=== PATIENT | male | born 1960 | race Caucasian/White ===

== ENCOUNTER 2019-05-17 13:12 | Inpatient (IN) ==
[2019-05-17] MEDS ORDERED: methylPREDNISolone 125 MG/2 ML VIAL IV STA (13:51)
[2019-05-17] MEDS ORDERED: ALBUT/IPRATROP 3MG/0.5MG NEB 3 ML VIAL INH STA (13:51)
[2019-05-17 14:21] LABS: Basophils # (auto) 0.24 K/uL (0-0.2); Basophils % (auto) 3.4 %; Eosinophils # (auto) 1.52 K/uL (0-0.5); Eosinophils % (auto) 21.3 %; Hematocrit (blood only) 43.9 % (42-52); Hemoglobin 15.4 g/dL (14.0-18.0); Immature Granulocytes # (auto) 0.01 K/uL (0.00-0.02); Immature Granulocytes % (auto) 0.1 %; Lymphocytes # (auto) 2.03 K/uL (1.2-3.4); Lymphocytes % (auto) 28.5 %; Mean Corpuscular Hemoglobin 32.3 pg (25-34); Mean Corpuscular Hgb Conc 35.1 g/dL (32-36); Monocytes # (auto) 0.93 K/uL (0.11-0.59); Monocytes % (auto) 13.1 %; Neutrophils # (auto) 2.39 K/uL (1.4-6.5); Neutrophils % (auto) 33.6 %; Platelet Count 295 K/uL (130-400); RDW Coefficient of Variation 13.6 % (11.5-14.5); Red Blood Count 4.77 M/uL (4.7-6.1); White Blood Count 7.12 K/uL (4.8-10.8)
--- NOTE | 2019-05-17 14:25 | XRay Report ---
XR chest 1V portable CLINICAL HISTORY: 58 years-old Male presenting with Dyspnea. TECHNIQUE: Portable upright AP view of the chest was obtained. COMPARISON: 05/14/2019. FINDINGS: Cardiomediastinal silhouette normal. No focal opacity. No large effusion or pneumothorax. Degenerativ e changes of the thoracic spine. Upper abdomen normal. IMPRESSION: 1. No acute cardiopulmonary disease. Electronically signed by: Dev Skelton M.D. 05/17/2019 2:23 PM
[2019-05-17 14:31] LABS: INR 1.1 (0.9-1.1); Partial Thromboplastin Ratio 0.9; Partial Thromboplastin Time 25.4 Seconds (21.0-31.0); Prothrombin Time 10.8 Seconds (9.0-12.0)
[2019-05-17 14:41] LABS: Alanine Aminotransferase 36 U/L (12-78); Albumin Level 3.8 gm/dl (3.4-5.0); Aspartate Aminotransferase 38 U/L (15-37); Blood Urea Nitrogen 11 mg/dl (7-18); Calcium 8.9 mg/dl (8.5-10.1); Carbon Dioxide 25 mmol/L (21-32); Chloride 107 mmol/L (98-107); Creatinine Clr Calc Pharmacy 99.5 ml/min; Est GFR (African American) 85.9; Est GFR (Non-African American) 74.1; Glucose 71 mg/dl (70-99); Potassium 4.3 mmol/L (3.5-5.1); Sodium 140 mmol/L (136-145)
[2019-05-17 14:49] LABS: Albumin Globulin Ratio 1.2 (0.9-2); Alkaline Phosphatase 55 U/L (45-117); Bilirubin,Total 1.2 mg/dl (0.2-1); Globulin 3.1 gm/dl (2.5-4.0); Total Protein 6.9 gm/dl (6.4-8.2); Troponin I < 0.015 ng/ml (0-0.045)
[2019-05-17] MEDS ORDERED: MAGNESIUM SULFATE / D5W 1 GM/100 ML BAG IV ONE (16:15)
[2019-05-17] MEDS ORDERED: DOXYCYCLINE HYCLATE 100 MG in DEXTROSE 5% 100 ML IV STA (16:37)
[2019-05-17] MEDS ORDERED: ALBUT/IPRATROP 3MG/0.5MG NEB 3 ML VIAL NEB STA (16:37)
--- NOTE | 2019-05-17 17:48 | History & Physical Report ---
Date of Service 58-year-old male with a past medical history of reactive airway disease, eosinophilic reactive airway disease, hypothyroid, hyperlipidemia, and diverticulitis who presents the emergency room with cough and wheezing that he says has been waxing and waning since February. Today he got so acutely short of breath and he had to come to the emergency room. This is his fifth episode of reactive airway disease exacerbation since February and he has been on multiple inhalers and antibiotics, but still relapses. He was given doxycycline, Solu-Medrol, nebulizers in the emergency room, but he does not feel well enough to leave. And he does have an audible wheeze when you talk to him. 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, , Works out, Used to weigh 300 lbs, Former tobacco user May 17, 2019 Assessment & Plan (1) Reactive airway disease: (2) Respiratory distress: (3) Wheezing: (4) Eosinophilia: (5) Hypothyroid: (6) HLD (hyperlipidemia): (7) Persistent cough: Duonebs, IV Steroids, Pulm eval, statin, sythroid, monitor daily labs, Inpatient status, likely here > 2 MNs, IgE and ANCA pending, Continue Doxy for now ROS- +Headache, No Visual Changes, No Nausea, No Vomiting, No Fever, No Chills, No Neck Pain or Stiffness, No Chest Pain, No Palpitations, +SOB,+ MOR[place], + Dry Cough, No Sputum, +Wheezing, No Abdominal Pain, No Diarrhea, No Hematemesis, No Hemoptysis, No Unexpected Weight Loss, No Flank pain, No Melena, No Hematochezia, No Frequency, No Urgency, No Burning, No Hematuria, No Rashes, No Diaphoresis. Appetite is Normal Physical Exam Gen-AAO x 3, NAD, Afebrile, pleasant Head-NCAT, EOMI, PERRLA, Anicteric Sclera, No Posterior Pharyngeal Erythema Neck-Supple, No JVD, No Thyromegaly, No Masses, No LAD, No Bruits Lungs-Tight B/L Wheezing, No Crepitus, No Rales or Rhonchi Chest-No S4, +S1, +S2, No S3, No Murmurs, No Rubs, No Gallops, No Ectopy Abdomen-Soft, Bowel Sounds Present, Non Tender, Non Distended, No Hepatomegaly, No Splenomegaly, No Palpable Masses, No Rebound, No Rigidity, No Guarding Musculoskeletal-Full Range of Motion Bilaterally, No CVAT Extremities-No Cyanosis, No Clubbing, No Edema Nuero-Cranial Nerves II-XII grossly intact, Motor WNL, DTRs WNL, Strength WNL, Non Focal Psych-Normal Mood History of Present Illness Primary Care Provider: Terrance Carlos MD Allergies Allergy/AdvReac Type Severity Reaction Status Date / Time Gadolinium-Containing Allergy Intermediate HIVES Verified 05/14/19 12:20 Contrast Medi Home Medications Home Medications Medication Instructions Recorded Confirmed Type levothyroxine [Synthroid] 125 mcg PO DAILY #34 09/02/14 05/17/19 History atorvastatin 10 mg PO DAILY 05/14/19 05/17/19 History ipratropium-albuterol [Combivent 0 puff INHALATION QID 05/14/19 05/17/19 History Respimat] albuterol sulfate [Ventolin HFA] 0 puffs INH Q6H PRN 05/17/19 05/17/19 History budesonide-formoterol [Symbicort] 0 puffs INH BID 05/17/19 05/17/19 History pantoprazole 0 mg PO DAILY 05/17/19 05/17/19 History Past Med/Surg History Medical History (Updated 05/17/19 @ 17:35 by Enrique Ernandez DO) Hyperlipidemia Hypothyroidism Social History Feels Safe at Home: Yes Smoking Status: Former smoker Results & Data Vital Signs (Past 12 Hours) Vital Signs Temp Pulse Pulse Resp BP Pulse Ox 05/17/19 17:00 93 H 18 93 05/17/19 16:00 94 H 19 144/84 H 93 05/17/19 15:30 92 H 19 157/110 H 98 05/17/19 15:00 83 15 140/89 98 05/17/19 14:36 78 16 94 05/17/19 14:30 73 12 146/98 H 90 05/17/19 14:00 81 17 128/80 91 05/17/19 13:53 92 H 18 96 05/17/19 13:42 84 19 129/77 93 05/17/19 13:40 96 05/17/19 13:21 36.6 C 92 H 18 145/86 H 91 Allergies Gadolinium-Containing Contrast Medi Allergy (Intermediate, Verified 05/14/19 12:20) HIVES Height/Weight/Isolation Height 6 ft 2 in Weight 114 kg Chemistry 05/17/19 14:13 Sodium 140 Potassium 4.3 Chloride 107 Carbon Dioxide 25 Anion Gap 8.0 BUN 11 Creatinine 1.10 Glucose 71
[2019-05-17] MEDS ORDERED: POLYETHYLENE (MIRALAX) 17 GM PACK PO PRN (18:48)
[2019-05-17] MEDS ORDERED: ALBUTEROL HFA 8 GM INHALER INH PRN (18:48)
--- NOTE | 2019-05-17 19:02 | Emergency Department Note ---
Entered by Traci Velazquez acting as a scribe for ED Provider Note CHIEF COMPLAINT: Shortness of breath HISTORY OF PRESENT ILLNESS: The patient is a 58 year old male who presents to the Emergency Room with complaints of shortness of breath that worsened today. The patient has had an ongoing breathing issue since February, and was on inhalers and medications which have helped. The shortness of breath came back, and the patient was seen in the hospital for it. After his last doctor's appointment, he received 2 inhalers. He notes that they helped his breathing at first, but stopped working after a while. He denies chest pain, nausea, and vomiting. He complains of a cough. He is not currently on steroids. He states that he feels like he cannot breathe, and that this is the worst it has been. He notes that when he is sitting straight up, it is slightly easier to breathe. The patient denies smoking. Pt denies LOC, fevers, chills, diaphoresis, visual changes, neck pain, chest pain, vomiting, abdominal pain, back pain, melena, hematochezia, urinary symptoms, numbness, weakness, lymphadenopathy, rash, or other complaints. REVIEW OF SYSTEMS: See HPI for pertinent positives and negatives. A total of ten systems were reviewed and were otherwise negative. PMHx/PSHx: Hyperlipidemia Hyperthyroidism SOCIAL HISTORY: Patient lives at home. PHYSICAL EXAM: GENERAL: Awake, alert, uncomfortable-appearing, in mild distress. HENT: Normocephalic, atraumatic. Oropharynx unremarkable. EYES: PERRL. Normal conjunctiva. Sclera non-icteric. NECK: Inspection normal. Non-tender. Supple. No nuchal rigidity. FROM. No masses. RESPIRATORY: Inspiratory and expiratory wheezes bilaterally. Increased respiratory effort. CARDIAC: Normal rate. Normal rhythm. No murmurs. No rubs. Extremities warm and well perfused. Pulses equal. No JVD. GI: Soft, non-distended. No tenderness to palpation. No rebound or guarding. No masses. RECTAL: Deferred. MUSCULOSKELETAL: Atraumatic. Chest examination reveals no tenderness. The back is symmetrical on inspection without obvious abnormality. There is no CVA tenderness to palpation. No joint edema. LOWER EXTREMITIES: Calves are equal size bilaterally and non-tender. No edema. No discoloration. NEURO: Normal sensorium. No sensory or motor deficits noted. SKIN: No rash or jaundice noted. EMERGENCY DEPARTMENT COURSE: 1349: Past medical records reviewed. The patient was evaluated in room A10, and a complete history and physical examination were performed. 1441: I rechecked on the patient. He is receiving his breathing treatment. 1503: I spoke to Dr. Hill, rubber stamp maker, who has an appointment with the patient on May 28. He recommended that the patient take 40 mg prednisone daily for 1 week and then 30 mg daily until his appointment date. 1512: I updated the patient. He notes that he was feeling a little bit better. 1637: I spoke to the patient regarding his treatment plan, and recommended staying for further evaluation. The patient was agreeable to this. 1644: I spoke to Laura Gipson, [facility] hospitalist, who agreed to take over care of the patient. The patient verbally expressed understanding and agreement of the treatment plan. The patient will be evaluated for further treatment. OBSERVATION NOTE Indication: shortness of breath Patient, with family history of asthma, was first seen at 1349 hrs and the observation time began at 1349 hrs and was necessary in order to determine improvment in breathing and avoid unnecessary admission . Upon re-evaluation, 3 hours of observation revealed that the patient should be admitted. Disposition date and time 1650 . MEDICAL DECISION MAKING: Prior records/ancillary studies reviewed. Triage Nursing notes reviewed and agree them. Additional history obtained from the family. The patient's history was concerning for shortness of breath. Differential diagnosis: Etiologies such as pneumonia, COPD, reactive airway disease, CHF, cardiac ischemia, pulmonary embolism, pneumothorax, musculoskeletal, infections, gastrointestinal, as well as others were entertained. Physical examination: Patient increased work of breathing. He had significant inspiratory next Tory wheezing. ER treatment provided: Hour-long DuoNeb treatment IV Solu-Medrol On reassessment the patient felt marginally better but with simple exertion he had significant return of wheezing and difficulty breathing IV magnesium IV doxycycline DuoNeb x1. Diagnostic interpretation by me: The electrocardiogram was negative for pathologic change. The labs revealed an unremarkable CBC C and chemistry panel except for significant elevation in his eosinophils on differential. This may be indicative of eosinophilic asthma. Imaging studies: Chest x-ray negative for pneumonia or acute process. Consultation: Consultation discussion was had with Dr. Franklin of pulmonology who will be seeing him in the office on the . He felt if the patient was doing much better he could be placed on steroids until he is seen in the office. If the patient did not improve he would require admission. Since the patient had improvement but then a step back it was felt that treatment in the hospital was most appropriate. Consultation was made with internal medicine. The case was discussed and diagnostics were reviewed. The patient was evaluated in the ER for further treatment. IMPRESSION: Respiratory distress Wheezing Eosinophilia PLAN: Admit The scribe's documentation has been prepared under my direction and personally reviewed by me in its entirety. I confirm that the note above accurately reflects all work, treatment, procedures, and medical decision making performed by me. Impression & Plan Respiratory distress, Wheezing, Eosinophilia Past Med/Surg History Medical History (Updated 05/17/19 @ 17:35 by Enrique Ernandez DO) Hyperlipidemia Hypothyroidism Social History Feels Safe at Home: Yes Smoking Status: Former smoker Results & Data Vital Signs Vital Signs - 24 hr 05/17/19 13:21 05/17/19 13:40 05/17/19 13:42 Temperature 36.6 C Temperature Source Oral Pulse Rate 92 H 84 Pulse Rate [Apical] Pulse Rate from SpO2 Sensor 84 Pulse Rhythm Respiratory Rate 18 19 Respiratory Effort / Characteristics Blood Pressure 145/86 H 129/77 Blood Pressure Mean 105 92 Pulse Oximetry 91 96 93 Oxygen Delivery Method Room Air Room Air Room Air Sepsis Recent Fever Within 48 Hours No Sepsis New/Unexplained Change in Mental Status No Sepsis Action Taken by Nursing No Action Required 05/17/19 13:53 05/17/19 14:00 05/17/19 14:30 Temperature Temperature Source Pulse Rate 92 H 81 73 Pulse Rate [Apical] Pulse Rate from SpO2 Sensor 81 73 Pulse Rhythm Regular Respiratory Rate 18 17 12 Respiratory Effort / Characteristics Blood Pressure 128/80 146/98 H Blood Pressure Mean 89 127 Pulse Oximetry 96 91 90 Oxygen Delivery Method Room Air Room Air Room Air Sepsis Recent Fever Within 48 Hours Sepsis New/Unexplained Change in Mental Status Sepsis Action Taken by Nursing 05/17/19 14:36 05/17/19 15:00 05/17/19 15:30 Temperature Temperature Source Pulse Rate 83 92 H Pulse Rate [Apical] 78 Pulse Rate from SpO2 Sensor 83 92 H Pulse Rhythm Respiratory Rate 16 15 19 Respiratory Effort / Characteristics Spontaneous Blood Pressure 140/89 157/110 H Blood Pressure Mean 94 132 Pulse Oximetry 94 98 98 Oxygen Delivery Method Room Air Nebulizer Nebulizer Sepsis Recent Fever Within 48 Hours Sepsis New/Unexplained Change in Mental Status Sepsis Action Taken by Nursing 05/17/19 16:00 05/17/19 16:30 Temperature Temperature Source Pulse Rate 94 H 98 H Pulse Rate [Apical] Pulse Rate from SpO2 Sensor 91 H 98 H Pulse Rhythm Respiratory Rate 19 34 H Respiratory Effort / Characteristics Blood Pressure 144/84 H 146/79 H Blood Pressure Mean 108 102 Pulse Oximetry 93 94 Oxygen Delivery Method Room Air Room Air Sepsis Recent Fever Within 48 Hours Sepsis New/Unexplained Change in Mental Status Sepsis Action Taken by [facility] Medications Current Medication List: was personally reviewed by me Laboratory Data Attestation: I reviewed the patient's lab results. Result diagrams: 05/17/19 14:13 05/17/19 14:13 Lab Results 05/17/19 05/17/19 05/17/19 Range/Units 14:13 14:13 14:13 WBC 7.12 (4.8-10.8) K/uL RBC 4.77 (4.7-6.1) M/uL Hgb 15.4 (14.0-18.0) g/dL Hct 43.9 (42-52) % MCV 92.0 (80-100) fL MCH 32.3 (25-34) pg MCHC 35.1 (32-36) g/dL RDW Std Deviation 46.0 (36.4-46.3) fL RDW Coeff of Femi 13.6 (11.5-14.5) % Plt Count 295 (130-400) K/uL MPV 10.0 (7.4-10.4) fL Immature Gran % (Auto) 0.1 % Neut % (Auto) 33.6 % Lymph % (Auto) 28.5 % [place] % (Auto) 13.1 % Eos % (Auto) 21.3 % Baso % (Auto) 3.4 % Immature Gran # (Auto) 0.01 (0.00-0.02) K/uL Neut # (Auto) 2.39 (1.4-6.5) K/uL Lymph # (Auto) 2.03 (1.2-3.4) K/uL [place] # (Auto) 0.93 H (0.11-0.59) K/uL Eos # (Auto) 1.52 H (0-0.5) K/uL Baso # (Auto) 0.24 H (0-0.2) K/uL PT 10.8 (9.0-12.0) Seconds INR 1.1 (0.9-1.1) APTT 25.4 (21.0-31.0) Seconds PTT Ratio 0.9 Sodium 140 (136-145) mmol/L Potassium 4.3 (3.5-5.1) mmol/L Chloride 107 (98-107) mmol/L Carbon Dioxide 25 (21-32) mmol/L Anion Gap 8.0 (3-11) BUN 11 (7-18) mg/dl Creatinine 1.10 (0.6-1.4) mg/dl Est Cr Clr Drug Dosing 99.5 ml/min Est GFR ( Amer) 85.9 Est GFR (Non-Af Amer) 74.1 BUN/Creatinine Ratio 10.0 (10-20) Glucose 71 (70-99) mg/dl Calcium 8.9 (8.5-10.1) mg/dl Magnesium 2.0 (1.8-2.4) mg/dl Total Bilirubin 1.2 H (0.2-1) mg/dl AST 38 H (15-37) U/L ALT 36 (12-78) U/L Alkaline Phosphatase 55 (45-117) U/L Troponin I < 0.015 (0-0.045) ng/ml Total Protein 6.9 (6.4-8.2) gm/dl Albumin 3.8 (3.4-5.0) gm/dl Globulin 3.1 (2.5-4.0) gm/dl Albumin/Globulin Ratio 1.2 (0.9-2) Specimen Hemolysis Administered Medications Discontinued Medications Albuterol (Duoneb) 12 ml INH ONE STA Stop: 05/17/19 13:52 Last Admin: 05/17/19 14:35 Dose: 12 ml Documented by: [id number] Albuterol (Duoneb) 3 ml NEB NOW STA Stop: 05/17/19 16:38 Last Admin: 05/17/19 16:59 Dose: 3 ml Documented by: [id number] Magnesium Sulfate/Dextrose (Magnesium Sulfate / D5w) 1 gm in 100 mls @ 100 mls/hr IV ONE ONE Stop: 05/17/19 17:14 Last Infusion: 05/17/19 17:41 Dose: 0 mls/hr Documented by: [id number] Admin: 05/17/19 16:26 Dose: 100 mls/hr Documented by: [id number] Doxycycline Hyclate 100 mg/ (Dextrose) 110 mls @ 50 mls/hr IV NOW STA Stop: 05/17/19 18:48 Last Admin: 05/17/19 16:55 Dose: 50 mls/hr Documented by: [id number] Methylprednisolone (Solumedrol) 125 mg IV NOW STA Stop: 05/17/19 13:52 Last Admin: 05/17/19 14:27 Dose: 125 mg Documented by: [id number] Imaging Data Radiologist's Impression: Radiology results as stated below per my review and the radiologist's interpretation: XR chest 1V portable CLINICAL HISTORY: 58 years-old Male presenting with Dyspnea. TECHNIQUE: Portable upright AP view of the chest was obtained. COMPARISON: 05/14/2019. FINDINGS: Cardiomediastinal silhouette normal. No focal opacity. No large effusion or pneumothorax. Degenerative changes of the thoracic spine. Upper abdomen normal. IMPRESSION: 1. No acute cardiopulmonary disease. Electronically signed by: Dev Skelton M.D. 05/17/2019 2:23 PM ECG Data Attestation: I personally reviewed and interpreted this ECG as follows: Indication: + SOB/dyspnea Rate (beats per minute): 85 Rhythm: normal sinus ECG Intervals/blocks: + Normal QRS ECG [place]: + Normal ECG ST segments: no ST depression and no ST elevation ECG Findings: no PACs and no PVCs Blood Pressure Blood Pressure Findings: Elevated blood pressure Blood Pressure Disposition: further management by hospitalist Discharge Plan Visit Data *Final* Discharge Date/Time: 05/17/19 18:14 Chief Complaint: Shortness of Breath/Dyspnea Stated Complaint: SHORTNESS OF BREATH - WAS HERE EARLIER ED Provider: Missael Luna Discharge Problem: Respiratory distress, Wheezing, Eosinophilia Patient Disposition: Admitted As Inpatient Discharge Instructions Interventions: ED Discharge Assessment Last Done: 05/17/19 18:14 The scribe's documentation has been prepared under my direction and personally reviewed by me in its entirety. I confirm that the note above accurately reflects all work, treatment, procedures, and medical decision making performed by me.
[2019-05-17] MEDS: ALBUT/IPRATROP 3MG/0.5MG NEB 3 ML VIAL NEB SCH (19:28)
[2019-05-17] MEDS: IPRATROPIUM BROMIDE/ALBUTEROL respimat INH INH SCH ×2 (19:37→21:52)
[2019-05-17] MEDS ORDERED: METHYLPREDNISOLONE IV SCH (20:00)
[2019-05-17] MEDS ORDERED: DEXTROSE 5% IV SCH (20:00)
[2019-05-17] MEDS: ACETAMINOPHEN 325 MG TAB PO PRN (20:03)
[2019-05-17 20:26] LABS: Appearance Urine Clear (Clear); Bilirubin Urine Negative (Negative); Blood Urine Negative (Negative); Color Urine Yellow; Glucose Urine UA Negative (Negative); Ketones Urine Negative (Negative); Leukocyte Esterase Urine Negative (Negative); Nitrite Urine Negative (Negative); Protein Urine Negative (Negative); Urobilinogen Urine Negative (Negative); pH Urine 5.5 (4.5-7.5)
[2019-05-17] MEDS: methylPREDNISolone 60 MG in SYRINGE 0 ML IV SCH (21:24)
[2019-05-17] MEDS: BUDESONIDE/FORMOTEROL FUMARATE 80/4.5 60 PUFFS/INHALER INH SCH (21:53)
[2019-05-18] MEDS: ACETAMINOPHEN 325 MG TAB PO PRN ×3 (01:38→20:00)
[2019-05-18] MEDS: methylPREDNISolone 60 MG in SYRINGE 0 ML IV SCH ×2 (01:39→08:00)
[2019-05-18] MEDS: ALBUT/IPRATROP 3MG/0.5MG NEB 3 ML VIAL NEB SCH ×5 (03:46→19:45)
[2019-05-18] MEDS: LEVOTHYROXINE SODIUM 125 MCG TABLET PO SCH ×2 (06:02→23:07)
[2019-05-18 07:44] LABS: Hematocrit (blood only) 45.7 % (42-52); Hemoglobin 15.9 g/dL (14.0-18.0); Mean Corpuscular Hemoglobin 31.9 pg (25-34); Mean Corpuscular Hgb Conc 34.8 g/dL (32-36); Mean Corpuscular Volume 91.6 fL (80-100); Mean Platelet Volume 10.4 fL (7.4-10.4); Platelet Count 332 K/uL (130-400); RDW Standard Deviation 47.1 fL (36.4-46.3); Red Blood Count 4.99 M/uL (4.7-6.1); White Blood Count 11.93 K/uL (4.8-10.8)
[2019-05-18] MEDS: ATORVASTATIN 10 MG TAB PO SCH (07:59)
[2019-05-18] MEDS: PANTOprazole 40 MG TAB PO SCH (08:00)
[2019-05-18] MEDS: BUDESONIDE/FORMOTEROL FUMARATE 80/4.5 60 PUFFS/INHALER INH SCH ×2 (08:01→21:11)
[2019-05-18] MEDS: IPRATROPIUM BROMIDE/ALBUTEROL respimat INH INH SCH (08:01)
[2019-05-18 08:21] LABS: BUN Creatinine Ratio 11.4 (10-20); Calcium 9.9 mg/dl (8.5-10.1); Creatinine Clr Calc Pharmacy 82.7 ml/min; Est GFR (African American) 68.9; Est GFR (Non-African American) 59.5; Potassium 3.9 mmol/L (3.5-5.1)
[2019-05-18] MEDS: IBUPROFEN 600 MG TAB PO PRN ×2 (08:42→16:37)
--- NOTE | 2019-05-18 11:13 | Pulmonary Consultation ---
Date of Consultation May 18, 2019 Assessment & Plan (1) Persistent cough: Patient with persistent dry cough associated with wheezing and peripheral eosinophilia with absolute neutrophil count greater than 1500 Differential diagnosis includes but not limited to parasites(Pargonimiasis), tropical pulmonary eosinophilia, coccidioidomycosis, medication, ABPA, hypereosinophilic syndromes, EGPA, AEP(radiographic findings doesn't fit) Patient denies any personal history of asthma but there is family history of asthma. Patient denies any recent travel history. He did say that he consumed sushi prior to the symptoms. Patient had penile implant in March 2019, patient denies any erythema around the site. Follow-up total IgE, IgE and IgG specific to Aspergillus. ANCA, Sputum for ova, parasites and Gram stain, Stool for ova and parasites, stool culture. Recommend titrating down steroids. We will schedule the patient for bronchoscopy in the morning to see if he has pulmonary eosinophilia as well. N.p.o. post midnight. Risks and benefits of procedure explained to the patient in depth. All questions were answered appropriately. Present on Admission?: Yes (2) Eosinophilia: Present on Admission?: Yes (3) Wheezing: Present on Admission?: Yes History of Present Illness Reason for Consultation: Cough Attending Physician: Enrique Ernandez DO History of Present Illness 58-year-old shadi with past medical history of hypothyroidism, dyslipidemia comes to the hospital with complaints of shortness of breath and cough which has been going on since February 2019 progressively getting worse. Patient felt more short of breath at rest when he came to the ER. Patient states that he is not able to bring up any phlegm. Does feel chest congestion. No hemoptysis. Denies any night sweats. As per the patient the symptoms started somewhere in February 2019 with cough nonproductive. He was given multiple dose of antibiotics by the primary doctor which gave him some relief but the cough came back. Patient also complains of headache. Denies any chest pain. No blurry vision. Denies any difficulty swallowing. Cough is not associated with food. Denies any dysuria, no hematuria, no hematochezia, no diarrhea, no nausea or vomiting. Patient has lost weight since he started diet. But no unexpected weight loss. No urticaria, no pruritus. Denies any sick contacts. Recent travel history to [place] in early 2018. Denies any travel history outside of [place]. Patient states that he consumed sushi somewhere around in January 2019. Social history: Smoked for only 2 years while he was in the college, no alcohol use since last 25 years, no illicit drug use. Works as an internet marketing specialist. No exposure to poultry or farm. Has pet dog at home which he has since 2009. Denies any mold at home. No personal history of any autoimmune disorders other than hypothyroidism. Surgical history: Penile implant in March 2019 Family history: History of asthma in maternal grandmother, pancreatic cancer in maternal ankles, maternal grandmother had lupus. Allergies Allergy/AdvReac Type Severity Reaction Status Date / Time Gadolinium-Containing Allergy Intermediate HIVES Verified 05/14/19 12:20 Contrast Medi Home Medications Home Medications Medication Instructions Recorded Confirmed Type levothyroxine [Synthroid] 125 mcg PO DAILY #34 09/02/14 05/17/19 History atorvastatin 10 mg PO DAILY 05/14/19 05/17/19 History ipratropium-albuterol [Combivent 0 puff INHALATION QID 05/14/19 05/17/19 History Respimat] albuterol sulfate [Ventolin HFA] 0 puffs INH Q6H PRN 05/17/19 05/17/19 History budesonide-formoterol [Symbicort] 0 puffs INH BID 05/17/19 05/17/19 History pantoprazole 0 mg PO DAILY 05/17/19 05/17/19 History Patient History Medical History (Updated 05/17/19 @ 17:35 by Enrique Ernandez DO) Hyperlipidemia Hypothyroidism Social History Preferred Language: Icelandic Communication Ability: Effective Review Trainer Required: No Beliefs That Will Affect Care: None Current Living Situation: Spouse Other Information That Helps Us Care for You: No Feels Safe at Home: Yes Safety Concerns: Feels Safe At This Time Smoking Status: Never smoker Hx Alcohol Use: No Hx Substance Use: No Review of Systems Review of Systems: All systems reviewed & are unremarkable except as noted in HPI & below Physical Exam Physical Exam: Constitutional: No acute distress HEENT: EOMI, PERRLA, moist mucous membranes, edematous left nasal mucosa. Respiratory system: Good air entry bilaterally, positive bilateral diffuse wheeze, no rhonchi, no crackles CVS: S1-S2 positive, no murmurs or gallops, tachycardia Abdomen: Soft, nontender, nondistended, positive bowel sounds x4 Extremities: +2 pulses bilaterally radialis/ dorsalis pedis, no edema, no cyanosis Neuro: Awake alert oriented x3 Psych: Normal mood and affect G/U: No [place] Skin: no rashes, warm and dry Lymphatic: no cervical or axillary lymphadenopathy Results & Data Vital Signs (Past 12 Hours) Vital Signs Temp Pulse Resp BP Pulse Ox 05/18/19 07:57 36.5 C 116 H 22 129/69 90 05/18/19 06:33 85 18 93 05/18/19 03:46 111 H 20 92 Intake & Output 05/16/19 05/17/19 05/18/19 05/19/19 06:59 06:59 06:59 06:59 Intake Total 460 / 460 Balance 460 / 460 Weight 113.4 kg 05/18/19 05/18/19 05/18/19 Range/Units 06:58 06:58 06:58 WBC 11.93 H (4.8-10.8) K/uL RBC 4.99 (4.7-6.1) M/uL Hgb 15.9 (14.0-18.0) g/dL Hct 45.7 (42-52) % MCV 91.6 (80-100) fL MCH 31.9 (25-34) pg MCHC 34.8 (32-36) g/dL RDW Std Deviation 47.1 H (36.4-46.3) fL RDW Coeff of Femi 14.0 (11.5-14.5) % Plt Count 332 (130-400) K/uL MPV 10.4 (7.4-10.4) fL Immature Gran % (Auto) % Neut % (Auto) % Lymph % (Auto) % [place] % (Auto) % Eos % (Auto) % Baso % (Auto) % Immature Gran # (Auto) (0.00-0.02) K/uL Neut # (Auto) (1.4-6.5) K/uL Lymph # (Auto) (1.2-3.4) K/uL [place] # (Auto) (0.11-0.59) K/uL Eos # (Auto) (0-0.5) K/uL Baso # (Auto) (0-0.2) K/uL PT (9.0-12.0) Seconds INR (0.9-1.1) APTT (21.0-31.0) Seconds PTT Ratio Sodium 139 (136-145) mmol/L Potassium 3.9 (3.5-5.1) mmol/L Chloride 107 (98-107) mmol/L Carbon Dioxide 22 (21-32) mmol/L Anion Gap 11.0 (3-11) BUN 15 (7-18) mg/dl Creatinine 1.32 (0.6-1.4) mg/dl Est Cr Clr Drug Dosing 82.7 ml/min Est GFR ( Amer) 68.9 Est GFR (Non-Af Amer) 59.5 BUN/Creatinine Ratio 11.4 (10-20) Glucose 136 H (70-99) mg/dl Calcium 9.9 (8.5-10.1) mg/dl Magnesium (1.8-2.4) mg/dl Total Bilirubin (0.2-1) mg/dl AST (15-37) U/L ALT (12-78) U/L Alkaline Phosphatase (45-117) U/L Troponin I (0-0.045) ng/ml Total Protein (6.4-8.2) gm/dl Albumin (3.4-5.0) gm/dl Globulin (2.5-4.0) gm/dl Albumin/Globulin Ratio (0.9-2) Specimen Hemolysis Urine Color Urine Appearance (Clear) Urine pH (4.5-7.5) Ur Specific [place] (1.000-1.030) Urine Protein (Negative) Urine Glucose (UA) (Negative) Urine Ketones (Negative) Urine Blood (Negative) Urine Nitrite (Negative) Urine Bilirubin (Negative) Urine Urobilinogen (Negative) Ur Leukocyte Esterase (Negative) ANCA Hepatitis C Ab Screen Neg (Neg) 05/17/19 05/17/19 05/17/19 Range/Units 20:10 15:48 14:13 WBC (4.8-10.8) K/uL RBC (4.7-6.1) M/uL Hgb (14.0-18.0) g/dL Hct (42-52) % MCV (80-100) fL MCH (25-34) pg MCHC (32-36) g/dL RDW Std Deviation (36.4-46.3) fL RDW Coeff of Femi (11.5-14.5) % Plt Count (130-400) K/uL MPV (7.4-10.4) fL Immature Gran % (Auto) % Neut % (Auto) % Lymph % (Auto) % [place] % (Auto) % Eos % (Auto) % Baso % (Auto) % Immature Gran # (Auto) (0.00-0.02) K/uL Neut # (Auto) (1.4-6.5) K/uL Lymph # (Auto) (1.2-3.4) K/uL [place] # (Auto) (0.11-0.59) K/uL Eos # (Auto) (0-0.5) K/uL Baso # (Auto) (0-0.2) K/uL PT (9.0-12.0) Seconds INR (0.9-1.1) APTT (21.0-31.0) Seconds PTT Ratio Sodium 140 (136-145) mmol/L Potassium 4.3 (3.5-5.1) mmol/L Chloride 107 (98-107) mmol/L Carbon Dioxide 25 (21-32) mmol/L Anion Gap 8.0 (3-11) BUN 11 (7-18) mg/dl Creatinine 1.10 (0.6-1.4) mg/dl Est Cr Clr Drug Dosing 99.5 ml/min Est GFR ( Amer) 85.9 Est GFR (Non-Af Amer) 74.1 BUN/Creatinine Ratio 10.0 (10-20) Glucose 71 (70-99) mg/dl Calcium 8.9 (8.5-10.1) mg/dl Magnesium 2.0 (1.8-2.4) mg/dl Total Bilirubin 1.2 H (0.2-1) mg/dl AST 38 H (15-37) U/L ALT 36 (12-78) U/L Alkaline Phosphatase 55 (45-117) U/L Troponin I < 0.015 (0-0.045) ng/ml Total Protein 6.9 (6.4-8.2) gm/dl Albumin 3.8 (3.4-5.0) gm/dl Globulin 3.1 (2.5-4.0) gm/dl Albumin/Globulin Ratio 1.2 (0.9-2) Specimen Hemolysis Urine Color Yellow Urine Appearance Clear (Clear) Urine pH 5.5 (4.5-7.5) Ur Specific [place] 1.010 (1.000-1.030) Urine Protein Negative (Negative) Urine Glucose (UA) Negative (Negative) Urine Ketones Negative (Negative) Urine Blood Negative (Negative) Urine Nitrite Negative (Negative) Urine Bilirubin Negative (Negative) Urine Urobilinogen Negative (Negative) Ur Leukocyte Esterase Negative (Negative) ANCA Pending Hepatitis C Ab Screen (Neg) 05/17/19 05/17/19 Range/Units 14:13 14:13 WBC 7.12 (4.8-10.8) K/uL RBC 4.77 (4.7-6.1) M/uL Hgb 15.4 (14.0-18.0) g/dL Hct 43.9 (42-52) % MCV 92.0 (80-100) fL MCH 32.3 (25-34) pg MCHC 35.1 (32-36) g/dL RDW Std Deviation 46.0 (36.4-46.3) fL RDW Coeff of Femi 13.6 (11.5-14.5) % Plt Count 295 (130-400) K/uL MPV 10.0 (7.4-10.4) fL Immature Gran % (Auto) 0.1 % Neut % (Auto) 33.6 % Lymph % (Auto) 28.5 % [place] % (Auto) 13.1 % Eos % (Auto) 21.3 % Baso % (Auto) 3.4 % Immature Gran # (Auto) 0.01 (0.00-0.02) K/uL Neut # (Auto) 2.39 (1.4-6.5) K/uL Lymph # (Auto) 2.03 (1.2-3.4) K/uL [place] # (Auto) 0.93 H (0.11-0.59) K/uL Eos # (Auto) 1.52 H (0-0.5) K/uL Baso # (Auto) 0.24 H (0-0.2) K/uL PT 10.8 (9.0-12.0) Seconds INR 1.1 (0.9-1.1) APTT 25.4 (21.0-31.0) Seconds PTT Ratio 0.9 Sodium (136-145) mmol/L Potassium (3.5-5.1) mmol/L Chloride (98-107) mmol/L Carbon Dioxide (21-32) mmol/L Anion Gap (3-11) BUN (7-18) mg/dl Creatinine (0.6-1.4) mg/dl Est Cr Clr Drug Dosing ml/min Est GFR ( Amer) Est GFR (Non-Af Amer) BUN/Creatinine Ratio (10-20) Glucose (70-99) mg/dl Calcium (8.5-10.1) mg/dl Magnesium (1.8-2.4) mg/dl Total Bilirubin (0.2-1) mg/dl AST (15-37) U/L ALT (12-78) U/L Alkaline Phosphatase (45-117) U/L Troponin I (0-0.045) ng/ml Total Protein (6.4-8.2) gm/dl Albumin (3.4-5.0) gm/dl Globulin (2.5-4.0) gm/dl Albumin/Globulin Ratio (0.9-2) Specimen Hemolysis Urine Color Urine Appearance (Clear) Urine pH (4.5-7.5) Ur Specific [place] (1.000-1.030) Urine Protein (Negative) Urine Glucose (UA) (Negative) Urine Ketones (Negative) Urine Blood (Negative) Urine Nitrite (Negative) Urine Bilirubin (Negative) Urine Urobilinogen (Negative) Ur Leukocyte Esterase (Negative) ANCA Hepatitis C Ab Screen (Neg) PG Care Time/CCT Total # of Minutes Spent Total Time Spent with Patient: Total time spent is greater than 50% in coordination of care (as documented) at patient's floor/unit and/or counseling patient:
[2019-05-18] MEDS: BENZONATATE 100 MG CAPSULE PO SCH ×2 (13:42→21:11)
[2019-05-18] MEDS: methylPREDNISolone 40 MG in SYRINGE 0 ML IV SCH ×2 (16:38→23:04)
[2019-05-19] MEDS: methylPREDNISolone 40 MG in SYRINGE 0 ML IV SCH ×3 (07:15→23:23)
[2019-05-19] MEDS: ALBUT/IPRATROP 3MG/0.5MG NEB 3 ML VIAL NEB SCH ×4 (07:15→19:19)
[2019-05-19] MEDS: BUDESONIDE/FORMOTEROL FUMARATE 80/4.5 60 PUFFS/INHALER INH SCH ×2 (07:16→21:57)
--- NOTE | 2019-05-19 08:46 | Hospitalist Progress Note ---
Date of Service May 19, 2019 Assessment & Plan (1) Reactive airway disease: (2) Respiratory distress: (3) Wheezing: (4) Eosinophilia: (5) Hypothyroid: (6) HLD (hyperlipidemia): (7) Persistent cough: Duonebs, IV Steroids, Pulm on case, Bronch and Bxs today, statin, synthroid, monitor daily labs, Inpatient status, IgE and ANCA, Continue Doxy for now, Resp adjusting nebs. Labs checked ROS- +Headache, No Visual Changes, No Nausea, No Vomiting, No Fever, No Chills, No Neck Pain or Stiffness, No Chest Pain, No Palpitations, +SOB,+ MORENO, + Dry Cough, No Sputum, +Wheezing, No Abdominal Pain, No Diarrhea, No Hematemesis, No Hemoptysis, No Unexpected Weight Loss, No Flank pain, No Melena, No Hematochezia, No Frequency, No Urgency, No Burning, No Hematuria, No Rashes, No Diaphoresis. Appetite is Normal Physical Exam Gen-AAO x 3, NAD, Afebrile, pleasant, very bronchospastic Head-NCAT, EOMI, PERRLA, Anicteric Sclera, No Posterior Pharyngeal Erythema Neck-Supple, No JVD, No Thyromegaly, No Masses, No LAD, No Bruits Lungs-Tight B/L Wheezing, No Crepitus, No Rales or Rhonchi Chest-No S4, +S1, +S2, No S3, No Murmurs, No Rubs, No Gallops, No Ectopy Abdomen-Soft, Bowel Sounds Present, Non Tender, Non Distended, No Hepatomegaly, No Splenomegaly, No Palpable Masses, No Rebound, No Rigidity, No Guarding Musculoskeletal-Full Range of Motion Bilaterally, No CVAT Extremities-No Cyanosis, No Clubbing, No Edema Nuero-Cranial Nerves II-XII grossly intact, Motor WNL, DTRs WNL, Strength WNL, Non Focal Psych-Normal Mood Results & Data Vital Signs (Past 12 Hours) Vital Signs Temp Pulse Resp BP BP Pulse Ox 05/19/19 08:26 118 H 24 93 05/19/19 08:23 118 H 25 H 95 05/19/19 07:43 36.8 C 113 H 24 110/54 L 90 05/19/19 07:23 123 H 36 H 95 05/18/19 23:34 36.5 C 94 H 20 141/69 H 92
--- NOTE | 2019-05-19 09:16 | Pre Anesthesia Assessment ---
Date of Service May 19, 2019 Pre Sedation Assessment Vital Signs Temp Pulse Resp BP BP Pulse Ox 05/19/19 08:26 118 H 24 93 05/19/19 08:23 118 H 25 H 95 05/19/19 07:43 36.8 C 113 H 24 110/54 L 90 05/19/19 07:23 123 H 36 H 95 05/18/19 23:34 36.5 C 94 H 20 141/69 H 92 05/18/19 19:46 109 H 22 90 05/18/19 15:14 36.4 C L 105 H 22 128/70 98 05/18/19 15:00 100 H 18 98 05/18/19 11:16 118 H 18 93 Cardiovascular RRR, no murmur, no edema Respiratory + respiratory effort normal + wheezes Pre-Sedation Airway Assessment Smoking Status: Never smoker Mallampati Class: II ASA: ASA2 Procedure Planning Current Medications Reviewed: Yes Notes The planned sedation has been discussed with the patient. Informed Consent was obtained. I have identified the patient, determined the appropriateness of sedation and have assessed the patient immediately prior to the procedure. All medicine(s) and interventions are by my order.
[2019-05-19] MEDS ORDERED: FLUCONAZOLE 100 MG TAB PO STA (09:58)
[2019-05-19] MEDS ORDERED: LIDOCAINE HCL 2% (LOCAL) INJ 50 ML VIAL INSTIL STA (10:01)
[2019-05-19] MEDS ORDERED: LIDOCAINE 4% INH SOLN 4 ML BTL NEB ONE (10:01)
[2019-05-19] MEDS ORDERED: LIDOCAINE HCL VISCOUS SOLN 2% 15 ML UDC TOP ONE (10:01)
--- NOTE | 2019-05-19 10:06 | History & Physical Bridge Note ---
Date of Service May 19, 2019 History & Physical Bridge Note I have examined the patient, reviewed the History & Physical and in the interval since the performance of the History & Physical I have noted the following changes of clinical significance: no changes noted
[2019-05-19] MEDS ORDERED: MIDAZOLAM HCL 1 MG/ML 2ML VIAL IV STA (10:07)
[2019-05-19] MEDS ORDERED: fentaNYL citrate 100 MCG/2 ML VIAL IV ONE (10:07)
--- NOTE | 2019-05-19 10:07 | Post Anesthesia Assessment ---
Date of Service May 19, 2019 Post Sedation Assessment Vital Signs Temp Pulse Pulse Resp BP BP Pulse Ox 05/19/19 10:05 123 H 26 H 129/66 94 05/19/19 10:00 128 H 26 H 144/82 H 94 05/19/19 09:55 121 H 23 116/69 94 05/19/19 09:50 121 H 23 122/65 94 05/19/19 09:45 135 H 26 H 141/102 H 94 05/19/19 09:40 111 H 26 H 121/63 94 05/19/19 09:35 107 H 18 131/75 98 05/19/19 09:30 105 H 18 142/75 H 98 05/19/19 09:21 112 H 26 H 148/77 H 98 05/19/19 08:26 118 H 24 93 05/19/19 08:23 118 H 25 H 95 05/19/19 07:43 36.8 C 113 H 24 110/54 L 90 05/19/19 07:23 123 H 36 H 95 05/18/19 23:34 36.5 C 94 H 20 141/69 H 92 05/18/19 19:46 109 H 22 90 05/18/19 15:14 36.4 C L 105 H 22 128/70 98 05/18/19 15:00 100 H 18 98 05/18/19 11:16 118 H 18 93 Recovery Score Activity: Moves 4 extremities Respiration: Deep Breath/Cough Circulation: +/-20% PreAnes Value Consciousness: Arouseable (by name) Oxygen Saturation: O2 needed for >90% Post Anesthesia Score: 8 Discharge Sedation Level of Care: Fast Track Phase II Post Sedation Plan On clinical assessment, the patient appears to have tolerated the sedation without complications. Patient is recovering as anticipated. Patient will continue to be monitored by nursing and may be discharged when sedation discharge criteria are met per below protocol. Upon Completions of procedure up to 15 minutes continue every 5 minute vital signs and the P.A.R. score; then discharge to a Phase I or Fast Track to Phase II per the following guidelines: * Discharge Patient to appropriate Phase II area if PAR is 8 or greater or return to pre- procedure baseline. The post - procedure orders will be as directed. * If PAR score is less than 8 or not return to pre-procedure baseline then patient will follow Phase I monitoring till PAR is reached for Phase II. The Phase I may be done in procedure room or may call to secure a Phase I area. * If naloxone or flumazenil are used for reversal, hold in Phase I for continued monitoring from when last reversal dose was given for a minimum of 60 minutes or longer pending the nurse and/or physician discretion of patient condition before discharge to Phase II. Please call the Sedation Physician to re-evaluate and complete post-note for discharge to Phase II area. Do NOT discharge from procedure sedation or Phase 1 until post- sedation evaluation note is complete by procedure /sedation MD Sedation Discharge Instructions to be given to the patient at discharge to home.
--- NOTE | 2019-05-19 10:12 | Procedure Note ---
Procedure Note: Bronchoscopy Procedure PREOPERATIVE DIAGNOSIS: Eosinophilia with wheezing/pneumonia POSTOPERATIVE DIAGNOSIS: Eosinophilia with thick secretions/pneumonia PROCEDURE PERFORMED: Flexible fiberoptic bronchoscopy with bronchoalveolar lavage COMPLICATIONS: None. INDICATION: As above PROCEDURE: After obtaining an informed consent, the patient was brought to the Bronchoscopy Suite. The patient had appropriate oxygen, blood pressure, heart rate, and respiratory rate monitoring applied and monitored continuously throughout the procedure. Supplemental oxygen via nasal cannula as per nursing records was applied to the nasopharynx with adequate saturations achieved. Topical anesthesia with nebulized 1% lidocaine was achieved. Subsequent to this, the patient was premedicated with 8 mg of midazolam and 175 Mcg of fentanyl. Upper Airway: The oropharynx and larynx were well visualized and showed candidiasis in the posterior part of the tongue and the pharynx. There was normal vocal cord motion without masses or lesions. Additional topical anesthesia with 1% lidocaine was applied to the trachea and nellie. The trachea appeared normal.The bronchoscope was then advanced through the nellie, which was sharp. The scope was then advanced into the right main stem and each segment, subsegement in the right upper lobe, right middle lobe and right lower lobe were visualized. There was copious amounts of yellowish-cuevas thick secretions noted which were suctioned out. There were no other findings including evidence of mass, anatomic distortions, or hemorrhage. The bronchoscope was subsequently withdrawn and advanced into the left mainstem. Again, each segment and subsegment was well visualized. No specific masses or other lesions were identified throughout the tracheobronchial tree on the left. There was copious amounts of yellowish-cuevas thick secretions noted which were suctioned out. The bronchoscope was then wedged in the right middle lobe followed by right upper lobe and bronchoalveolar lavage samples were obtained. 120 ml of saline was instilled and 60 ml of fluid was aspirated back.The bronchoscope was withdrawn and the area was suctioned clear. The bronchoscope was then withdrawn to the mainstem. The area was suctioned clear. The bronchoscope was then withdrawn. The patient tolerated the procedure well without evidence of desaturation or complications. Bronchoalveolar lavage samples were sent for cell count, Gram stain and bacterial culture, AFB culture and smear, fungal culture and smear and cytology. Recommendations: Continue with antibiotics We will add fluconazole for oral pharyngeal candidiasis Add Mucomyst for thick secretions noted in the airway Follow-up culture, cell count with differential and cytology.
[2019-05-19 11:17] LABS: Hematocrit (blood only) 43.4 % (42-52); Mean Corpuscular Hemoglobin 32.3 pg (25-34); Mean Corpuscular Hgb Conc 34.6 g/dL (32-36); Mean Corpuscular Volume 93.3 fL (80-100); Platelet Count 325 K/uL (130-400); RDW Coefficient of Variation 14.3 % (11.5-14.5); RDW Standard Deviation 48.6 fL (36.4-46.3); Red Blood Count 4.65 M/uL (4.7-6.1); White Blood Count 19.18 K/uL (4.8-10.8)
--- NOTE | 2019-05-19 11:24 | XRay Report ---
SINGLE VIEW CHEST CLINICAL HISTORY: Status post bronchoscopy. FINDINGS: An AP, portable, upright chest radiograph is compared to study dated 05/17/2019 and correla diogo with chest CT dated 05/14/2019. The examination is degraded by portable technique, apical lordoti c positioning, and patient rotation. The cardiomediastinal silhouette is unremarkable. Left basilar opacities are again noted. The lungs are otherwise clear. No large pleural effusion is identified. No pneumothorax is seen. The bony thorax is grossly intact. IMPRESSION: 1. No pneumothorax is seen post procedure. 2. Left basilar opacities are similar to previous and likely represent atelectasis. Clinical correlat ion will be required. Electronically signed by: Kris Davidson M.D. 05/19/2019 11:23 AM
[2019-05-19] MEDS: LEVOTHYROXINE SODIUM 125 MCG TABLET PO SCH (11:41)
[2019-05-19 11:51] LABS: BUN Creatinine Ratio 18.3 (10-20); Calcium 8.8 mg/dl (8.5-10.1); Creatinine Clr Calc Pharmacy 82.7 ml/min; Est GFR (African American) 68.9; Est GFR (Non-African American) 59.5; Potassium 4.6 mmol/L (3.5-5.1)
--- NOTE | 2019-05-19 11:53 | Pulmonology Progress Note ---
Date of Service May 19, 2019 Assessment & Plan (1) Persistent cough: Patient with persistent dry cough associated with wheezing and peripheral eosinophilia with absolute neutrophil count greater than 1500 Differential diagnosis includes but not limited to parasites(Pargonimiasis), tropical pulmonary eosinophilia, coccidioidomycosis, medication, ABPA, hypereosinophilic syndromes, EGPA, AEP(radiographic findings doesn't fit) Patient denies any personal history of asthma but there is family history of asthma. Patient denies any recent travel history. He did say that he consumed sushi twice prior to the symptoms. Patient had penile implant in March 2019, patient denies any erythema around the site. Follow-up total IgE, IgE and IgG specific to Aspergillus. ANCA, Sputum for ova, parasites and Gram stain, Stool for ova and parasites, stool culture. Patient had bronchoscopy done today which showed oral candidiasis appreciated on the posterior tongue and pharynx along with thick grayish yellow secretions. Add Doxycylcine with rocephin for 5 days. Patient denies any risk factor for HIV. Edward-pharyngeal candidiasis likely sec to use of ICS inhaler which was started 2 weeks ago. Oral fluconazole started for t he patient. Patient consented verbally to be tested for HIV. Recommend HIV to be ordered. (2) Eosinophilia: (3) Wheezing: Subjective Patient seen and examined at bedside. No acute distress, no adverse events overnight. Patient said that she slept well overnight but he started to cough when he woke up and went to the bathroom. Denies any chest pain, does complain of headache. No blurry vision. No nausea or vomiting. Appetite well. Patient was seen after bronchoscopy. Review of Systems Review of Systems: All systems reviewed & are unremarkable except as noted in HPI & below Physical Exam Physical Exam: Constitutional: No acute distress HEENT: EOMI, PERRLA, moist mucous membranes Respiratory system: Good air entry bilaterally, positive bilateral diffuse wheeze, no rhonchi, no crackles CVS: S1-S2 positive, no murmurs or gallops, tachycardia Abdomen: Soft, nontender, nondistended, positive bowel sounds x4 Extremities: +2 pulses bilaterally radialis/ dorsalis pedis, no edema, no cyanosis Neuro: Awake alert oriented x3 Psych: Normal mood and affect G/U: No [place] Skin: no rashes, warm and dry Lymphatic: no cervical or axillary lymphadenopathy Results & Data Vital Signs (Past 12 Hours) Vital Signs Temp Pulse Pulse Resp BP Pulse Ox 05/19/19 11:18 104 H 20 93 05/19/19 10:20 113 H 24 114/74 95 05/19/19 10:15 113 H 24 124/54 L 95 05/19/19 10:10 116 H 26 H 121/76 94 05/19/19 10:05 123 H 26 H 129/66 94 05/19/19 10:00 128 H 26 H 144/82 H 94 05/19/19 09:55 121 H 23 116/69 94 05/19/19 09:50 121 H 23 122/65 94 05/19/19 09:45 135 H 26 H 141/102 H 94 05/19/19 09:40 111 H 26 H 121/63 94 05/19/19 09:35 107 H 18 131/75 98 05/19/19 09:30 105 H 18 142/75 H 98 05/19/19 09:21 112 H 26 H 148/77 H 98 05/19/19 08:26 118 H 24 93 05/19/19 08:23 118 H 25 H 95 05/19/19 07:43 36.8 C 113 H 24 110/54 L 90 05/19/19 07:23 123 H 36 H 95 05/19/19 11:10 PG Care Time/CCT Total # of Minutes Spent Total Time Spent with Patient: Total time spent is greater than 50% in coordination of care (as documented) at patient's floor/unit and/or counseling patient:
[2019-05-19] MEDS: ATORVASTATIN 10 MG TAB PO SCH (12:13)
[2019-05-19] MEDS: PANTOprazole 40 MG TAB PO SCH (12:14)
[2019-05-19] MEDS: BENZONATATE 100 MG CAPSULE PO SCH ×3 (12:14→22:01)
[2019-05-19] MEDS: DOXYCYCLINE HYCLATE 100 MG CAP PO SCH ×2 (13:11→22:02)
[2019-05-19] MEDS: cefTRIAXone SODIUM 2,000 MG in DEXTROSE 5% 50 ML IV SCH (13:11)
[2019-05-19 14:53] LABS: Basophil Body Fluid Man 1 %; Eosinophil Body Fluid Man 3 %; Fluid Mono/Macrophage 13 %; Lymphocyte Body Fluid Man 10 %; Neutrophil Body Fluid Man 73 %
[2019-05-19] MEDS: IBUPROFEN 600 MG TAB PO PRN (15:50)
[2019-05-19] MEDS: GUAIFENESIN/CODEINE 200MG/20MG 10ML UDC PO PRN ×2 (15:50→22:11)
[2019-05-19] MEDS: ACETYLCYSTEINE 20% INHAL SOLN ***DISPENSED BY RESP. INH SCH (19:19)
[2019-05-19] MEDS ORDERED: XOPENEX/ATROVENT 1.25mg/0.5MG NEB COMBO NEB SCH (21:45)
--- NOTE | 2019-05-19 21:55 | XRay Report ---
XR chest 1V portable CLINICAL HISTORY: Worsening shortness of breath. COMPARISON STUDY: Chest CT May 14, 2019. Chest radiograph May 19, 2019 at 11:00 AM. FINDINGS: Lung volumes are normal. Lungs are clear. There is no pneumothorax or pleural effusion. Car diac size is normal. Mediastinal contours are normal. There is no evidence for pulmonary edema. IMPRESSION: No acute cardiopulmonary findings. Electronically signed by: Jaison Shaffer M.D. 05/19/2019 9:54 PM
[2019-05-19] MEDS: MAGNESIUM SULFATE / D5W 1 GM/100 ML BAG IV SCH ×2 (22:03→23:19)
[2019-05-19] MEDS: ACETAMINOPHEN 325 MG TAB PO PRN (22:10)
[2019-05-19] MEDS ORDERED: SODIUM CHLORIDE 0.9% 1000ML 1,000 ML IV ONE ×2 (22:14→23:15)
[2019-05-19] MEDS ORDERED: cloNIDine HCL 0.1 MG TAB PO ONE (22:14)
[2019-05-19 22:39] LABS: Base Excess ABG -1.8 mEq/L (-9-1.8); HCO3 ABG 21 mmol/L (19-24); Oxygen Saturation ABG 96.9 % (90-95); PCO2 ABG 31 mmHg (35-46); PO2 ABG 87 mm/Hg (80-95); pH ABG 7.45 (7.35-7.45)
[2019-05-19 22:49] LABS: Allen Test Pos (Pos)
[2019-05-19] MEDS: LEVALBUTEROL 1.25MG/0.5ML NEB INH SCH (22:58)
[2019-05-19] MEDS: IPRATROPIUM BROMIDE NEB SOLN 0.02% 2.5 ML VIAL INH SCH (22:58)
[2019-05-19] MEDS: LORazepam 0.25 MG/0.5 ML VIAL IV PRN (23:23)
[2019-05-20] MEDS ORDERED: LACTATED RINGER'S 1,000 ML IV ONE (00:15)
[2019-05-20] MEDS ORDERED: LACTATED RINGER'S 1,000 ML IV SCH (02:00)
[2019-05-20] MEDS: LEVALBUTEROL 1.25MG/0.5ML NEB INH SCH ×6 (03:07→22:58)
[2019-05-20] MEDS: IPRATROPIUM BROMIDE NEB SOLN 0.02% 2.5 ML VIAL INH SCH ×6 (03:07→22:58)
[2019-05-20 03:27] LABS: Hemoglobin 14.4 g/dL (14.0-18.0); Immature Granulocytes # (auto) 0.06 K/uL (0.00-0.02); Immature Granulocytes % (auto) 0.3 %; Lymphocytes # (auto) 0.59 K/uL (1.2-3.4); Lymphocytes % (auto) 3.2 %; Mean Corpuscular Hemoglobin 32.1 pg (25-34); Mean Corpuscular Hgb Conc 34.3 g/dL (32-36); Mean Corpuscular Volume 93.8 fL (80-100); Mean Platelet Volume 9.9 fL (7.4-10.4); Monocytes # (auto) 1.12 K/uL (0.11-0.59); Monocytes % (auto) 6.1 %; Neutrophils # (auto) 16.52 K/uL (1.4-6.5); Neutrophils % (auto) 90.4 %; Platelet Count 319 K/uL (130-400); RDW Coefficient of Variation 14.3 % (11.5-14.5); RDW Standard Deviation 48.9 fL (36.4-46.3); Red Blood Count 4.48 M/uL (4.7-6.1); White Blood Count 18.29 K/uL (4.8-10.8)
[2019-05-20 03:44] LABS: Calcium 8.5 mg/dl (8.5-10.1); Creatinine Clr Calc Pharmacy 75.3 ml/min; Est GFR (African American) 61.5; Est GFR (Non-African American) 53.1; Magnesium 2.5 mg/dl (1.8-2.4); Potassium 4.7 mmol/L (3.5-5.1)
[2019-05-20] MEDS ORDERED: SODIUM CHLORIDE 0.9% 1000ML 1,000 ML IV ONE ×2 (03:58→05:00)
[2019-05-20] MEDS: LEVOTHYROXINE SODIUM 125 MCG TABLET PO SCH (05:20)
[2019-05-20] MEDS: ACETYLCYSTEINE 20% INHAL SOLN ***DISPENSED BY RESP. INH SCH ×3 (07:13→19:05)
[2019-05-20] MEDS: SODIUM CHLORIDE 0.9% 1000ML 1,000 ML IV SCH ×2 (07:14→12:46)
[2019-05-20] MEDS: BENZONATATE 100 MG CAPSULE PO SCH ×3 (08:03→20:03)
[2019-05-20] MEDS: BUDESONIDE/FORMOTEROL FUMARATE 80/4.5 60 PUFFS/INHALER INH SCH ×2 (08:03→20:05)
[2019-05-20] MEDS: ATORVASTATIN 10 MG TAB PO SCH (08:03)
[2019-05-20] MEDS: DOXYCYCLINE HYCLATE 100 MG CAP PO SCH ×2 (08:03→20:03)
[2019-05-20] MEDS: FLUCONAZOLE 100 MG TAB PO SCH (08:04)
[2019-05-20] MEDS: PANTOprazole 40 MG TAB PO SCH (08:05)
[2019-05-20] MEDS: methylPREDNISolone 40 MG in SYRINGE 0 ML IV SCH (08:08)
[2019-05-20] MEDS: GUAIFENESIN/CODEINE 200MG/20MG 10ML UDC PO PRN (09:03)
[2019-05-20] MEDS: ACETAMINOPHEN 325 MG TAB PO PRN (09:08)
--- NOTE | 2019-05-20 09:48 | Pulmonology Progress Note ---
Date of Service May 20, 2019 Assessment & Plan (1) Persistent cough: Clinically patient doing a little bit better than yesterday. Still wheezing but it has significantly decrease in intensity. Bronchoalveolar lavage differential showed neutrophilic. Gram stain showing gram-positive cocci. Follow-up culture. Follow-up total IgE, IgE and IgG specific to Aspergillus. ANCA, Sputum for ova, parasites and Gram stain, Stool for ova and parasites, stool culture. Patient had bronchoscopy done 05/19/19 which showed oral candidiasis appreciated on the posterior tongue and pharynx along with thick grayish yellow secretions. Doxycylcine with rocephin added for 5 days. Patient denies any risk factor for HIV. Edward-pharyngeal candidiasis likely sec to use of ICS inhaler which was started 2 weeks ago. Oral fluconazole started for the patient. Patient consented verbally to be tested for HIV. Recommend HIV to be ordered. Add guaifenessin with DM q8hrs Patient's BP has been on the higher side since admission, could be playing a role in his SOSA. Add Amlodipine 5mg. Lactic acidosis is likely Type B from Beta agonists. C/w IV fluids. (2) Eosinophilia: Patient with persistent dry cough associated with wheezing and peripheral eosinophilia with absolute neutrophil count greater than 1500 Differential diagnosis includes but not limited to parasites(Pargonimiasis), tropical pulmonary eosinophilia, coccidioidomycosis, medication, ABPA, hypereosinophilic syndromes, EGPA, AEP(radiographic findings doesn't fit) Patient denies any personal history of asthma but there is family history of asthma. Patient denies any recent travel history. No exposure to Hay or poultry. He did say that he consumed sushi twice prior to the symptoms. Patient had penile implant in March 2019, patient denies any erythema around the site. (3) Wheezing: Subjective Patient seen and examined at bedside. No acute distress, no evidence events overnight. States that he is feeling a bit better than yesterday. Still coughing amarjit cially on exertion and taking deep breaths. Not bringing up any phlegm. Denies any dysphagia or odynophagia. Appetite good. No dizziness. Complains of mild headache. No blurry vision. No dizziness. No nausea or vomiting. Review of Systems Review of Systems: All systems reviewed & are unremarkable except as noted in HPI & below Physical Exam Physical Exam: Constitutional: No acute distress HEENT: EOMI, PERRLA, moist mucous membranes Respiratory system: Good air entry bilaterally, minimal expiratory wheeze bilaterally, no rhonchi, no crackles CVS: S1-S2 positive, no murmurs or gallops, tachycardia Abdomen: Soft, nontender, nondistended, positive bowel sounds x4 Extremities: +2 pulses bilaterally radialis/ dorsalis pedis, no edema, no cyanosis Neuro: Awake alert oriented x3 Psych: Normal mood and affect G/U: No [place] ENMT: Mallampati Class: II Skin: no rashes, warm and dry Lymphatic: no cervical or axillary lymphadenopathy Results & Data Vital Signs (Past 12 Hours) Vital Signs Temp Pulse Resp BP Pulse Ox 05/20/19 07:11 96 H 18 98 05/20/19 07:00 36.3 C L 97 H 20 157/73 H 96 05/20/19 03:07 105 H 16 98 05/19/19 22:58 106 H 16 96 05/19/19 22:50 36.2 C L 109 H 20 152/76 H 95 05/20/19 03:13 05/20/19 03:13 PG Care Time/CCT Total # of Minutes Spent Total Time Spent with Patient: Total time spent is greater than 50% in coordination of care (as documented) at patient's floor/unit and/or counseling patient:
[2019-05-20] MEDS ORDERED: GUAIFENESIN/DEXTROM SYRUP 200MG/20MG 10ML UDC PO SCH (10:00)
[2019-05-20] MEDS: AMLODIPINE BESYLATE 5 MG TAB PO SCH (10:13)
[2019-05-20] MEDS ORDERED: methylPREDNISolone 125 MG in SYRINGE 0 ML IV STA (12:31)
[2019-05-20] MEDS: LORazepam 0.25 MG/0.5 ML VIAL IV PRN (12:40)
[2019-05-20] MEDS: GUAIFENESIN/CODEINE 200MG/20MG 10ML UDC PO SCH ×3 (12:43→23:32)
[2019-05-20] MEDS: cefTRIAXone SODIUM 2,000 MG in DEXTROSE 5% 50 ML IV SCH (12:49)
[2019-05-20 12:58] LABS: iSTAT Allen Test Pass; iSTAT Arterial Blood Gas HCO3 18 meg/L (19-24); iSTAT Arterial Blood Gas pCO2 33 mmHg (35-46); iSTAT Arterial Blood Gas pH 7.34 (7.35-7.45); iSTAT Arterial Blood Gas pO2 108 mmHg (80-95); iSTAT Carbon Dioxide 19 mEq/l (24-31); iSTAT FiO2 6 %; iSTAT Site R Radial
--- NOTE | 2019-05-20 13:01 | XRay Report ---
XR chest 1V portable CLINICAL HISTORY: hypoxia COMPARISON STUDY: Chest CT May 22, 2019. Chest radiograph May 19, 2019. FINDINGS: Lung volumes are normal. There is no pneumothorax or pleural effusion. No consolidation is identified. There is mild bilateral lower lung interstitial thickening. Cardiac size is normal. Media stinal contours are normal. IMPRESSION: Mild bilateral lower lung interstitial thickening. Electronically signed by: Jaison Shaffer M.D. 05/20/2019 12:59 PM
--- NOTE | 2019-05-20 13:12 | Hospitalist Progress Note ---
Date of Service May 20, 2019 Assessment & Plan (1) Persistent cough: Possible bacterial pneumonia, eosinophilic pneumonia, bronchopulmonary aspergillosis Status post bronchoscopy 05/19/2019: oral candidiasis appreciated on the posterior tongue and pharynx along with thick grayish yellow secretions. Bronchoalveolar lavage: Neutrophilic, Gram stain gram-positive cocci Serologies pending: Total IgE, IgE and allergy specific aspergillosis, ANCA, urine for ova and parasites, stool for ova and parasites Patient had another severe coughing/bronchospastic episode Increase Solu-Medrol to 60 mg every 6 hours Continue nebs every 4 hours, Mucomyst every 12 Continue ceftriaxone plus doxycycline As needed guaifenesin DM Discussed with pulmonary service BEATRIZ Warren Oropharyngeal candidiasis Continue fluconazole Hypertension No to be started Eosinophilia Management per #1 DVT prophylaxis Lovenox SC Disposition pending Subjective Follow-up for severe bronchospasms, pneumonia About the nurses station, patient's RN notified me regarding patient's severe coughing spells Patient seen kneeling on all fours on the floor, having acute severe coughing episode, appeared to be in respiratory distress Positive wheezing bilaterally Code purple called O2 sats 80% on room air, improving to 94% on 7 L of oxygen mask Stat nebulizer treatment with DuoNeb plus lidocaine administered, Solu-Medrol total of 125 mg IV given ABG ordered: No acidosis noted Stat chest x-ray ordered pneumothorax, no pleural effusion, no consolidation After a few minutes, patient's respiratory status improved Wheezing also improved Patient transferred to telemetry unit for closer monitoring Reassessed at around 3 PM, patient's resting in bed, comfortable, not in distress States he feels better compared to noontime Auscultation revealed mild wheeze but good air entry bilaterally No other complaints Review of Systems Review of Systems: All systems reviewed & are unremarkable except as noted in HPI & below Physical Exam Physical Exam: General- oriented x 3, tachypneic, in respiratory distress, speaks in phrases with effort Head- atraumatic Eyes- PERRL, EOMI, anicteric ENT- oropharynx clear Neck- supple, no JVD, no adenopathy, no thyromegaly; carotids +2/2, no bruits appreciated Lungs-positive diffuse wheezing bilaterally Heart-tachycardic, regular rhythm; no murmur, no gallop, no rub appreciated Abdomen- normal bowel sounds, nondistended, soft, nontender, no masses or hepatosplenomegaly Extremities- no pretibial edema, no calf tenderness; peripheral pulses intact Neuro- alert, oriented x 3; CN 2-12 grossly intact; motor 5/5 bilaterally;sensation 100% on all extremities; no other gross focal neurologic deficits Skin- warm & dry Results & Data Vital Signs (Past 12 Hours) Vital Signs Temp Pulse Resp BP Pulse Ox 05/20/19 11:22 100 H 20 98 05/20/19 07:11 96 H 18 98 05/20/19 07:00 36.3 C L 97 H 20 157/73 H 96 05/20/19 03:07 105 H 16 98 Laboratory Results Laboratory Results - last 24 hr 05/19/19 05/19/19 05/20/19 22:15 22:26 03:13 WBC 18.29 H RBC 4.48 L Hgb 14.4 Hct 42.0 MCV 93.8 MCH 32.1 MCHC 34.3 RDW Std Deviation 48.9 H RDW Coeff of Femi 14.3 Plt Count 319 MPV 9.9 Immature Gran % (Auto) 0.3 Neut % (Auto) 90.4 Lymph % (Auto) 3.2 [place] % (Auto) 6.1 Eos % (Auto) 0.0 Baso % (Auto) 0.0 Immature Gran # (Auto) 0.06 H Neut # (Auto) 16.52 H Lymph # (Auto) 0.59 L [place] # (Auto) 1.12 H Eos # (Auto) 0.00 Baso # (Auto) 0.00 Sample Site POC pH POC pCO2 POC pO2 POC HCO3 POC Total CO2 POC Base Excess ABG pH 7.45 ABG pCO2 31 L ABG pO2 87 ABG HCO3 21 POC ABG O2 Sat ABG O2 Saturation 96.9 H ABG Base Excess -1.8 Abhishek Test Pos Barometric Pressure 729.2 Oxygen Given 2L O2 O2 Delivery Device POC FiO2 Sodium Potassium Chloride Carbon Dioxide Anion Gap BUN Creatinine Est Cr Clr Drug Dosing Est GFR ( Amer) Est GFR (Non-Af Amer) BUN/Creatinine Ratio Glucose Lactate 6.1 H* Calcium Magnesium 05/20/19 05/20/19 05/20/19 03:13 03:14 07:10 WBC RBC Hgb Hct MCV MCH MCHC RDW Std Deviation RDW Coeff of Femi Plt Count MPV Immature Gran % (Auto) Neut % (Auto) Lymph % (Auto) [place] % (Auto) Eos % (Auto) Baso % (Auto) Immature Gran # (Auto) Neut # (Auto) Lymph # (Auto) [place] # (Auto) Eos # (Auto) Baso # (Auto) Sample Site POC pH POC pCO2 POC pO2 POC HCO3 POC Total CO2 POC Base Excess ABG pH ABG pCO2 ABG pO2 ABG HCO3 POC ABG O2 Sat ABG O2 Saturation ABG Base Excess Abhishek Test Barometric Pressure Oxygen Given O2 Delivery Device POC FiO2 Sodium 138 Potassium 4.7 Chloride 109 H Carbon Dioxide 26 Anion Gap 3.0 BUN 23 H Creatinine 1.45 H Est Cr Clr Drug Dosing 75.3 Est GFR ( Amer) 61.5 Est GFR (Non-Af Amer) 53.1 BUN/Creatinine Ratio 16.0 Glucose 178 H Lactate 4.5 H* 2.3 H* Calcium 8.5 Magnesium 2.5 H 05/20/19 12:44 WBC RBC Hgb Hct MCV MCH MCHC RDW Std Deviation RDW Coeff of Femi Plt Count MPV Immature Gran % (Auto) Neut % (Auto) Lymph % (Auto) [place] % (Auto) Eos % (Auto) Baso % (Auto) Immature Gran # (Auto) Neut # (Auto) Lymph # (Auto) [place] # (Auto) Eos # (Auto) Baso # (Auto) Sample Site R Radial POC pH 7.34 L POC pCO2 33 L POC pO2 108 H POC HCO3 18 L POC Total CO2 19 L POC Base Excess -8.0 ABG pH ABG pCO2 ABG pO2 ABG HCO3 POC ABG O2 Sat 98.0 H ABG O2 Saturation ABG Base Excess Abhishek Test Pass Barometric Pressure Oxygen Given O2 Delivery Device VentiMask POC FiO2 6 Sodium Potassium Chloride Carbon Dioxide Anion Gap BUN Creatinine Est Cr Clr Drug Dosing Est GFR ( Amer) Est GFR (Non-Af Amer) BUN/Creatinine Ratio Glucose Lactate Calcium Magnesium
[2019-05-20] MEDS: methylPREDNISolone 60 MG in SYRINGE 0 ML IV SCH ×2 (16:57→23:29)
[2019-05-20] MEDS: ENOXAPARIN INJ 40 MG/0.4 ML SYR SQ SCH (17:48)
[2019-05-21] MEDS: IPRATROPIUM BROMIDE NEB SOLN 0.02% 2.5 ML VIAL INH SCH ×6 (03:35→23:06)
[2019-05-21] MEDS: LEVALBUTEROL 1.25MG/0.5ML NEB INH SCH ×6 (03:35→23:06)
[2019-05-21] MEDS: methylPREDNISolone 60 MG in SYRINGE 0 ML IV SCH ×4 (05:50→21:43)
[2019-05-21] MEDS: GUAIFENESIN/CODEINE 200MG/20MG 10ML UDC PO SCH ×2 (05:50→11:33)
[2019-05-21] MEDS: LEVOTHYROXINE SODIUM 125 MCG TABLET PO SCH (05:51)
--- NOTE | 2019-05-21 08:25 | Pulmonology Progress Note ---
Date of Service May 21, 2019 Assessment & Plan (1) Persistent cough: Patient has severe hyperreactive airways which results in bouts/fits of cough on deep inhalation and exertion. At rest patient feels better. - Bronchoalveolar lavage differential showed neutrophilic. Gram stain showing gram-positive cocci. Follow-up culture. - Cytology of RUL BAL showing atypical squamous cells likely sec to underlying inflammation. Patient is low risk for lung cancer given he has only 2 pack year smoking history quit > 20 years ago. No other exposure to chemicals. Case discussed with pathologist Dr Rose. Total IgE: 36, Sputum for ova, parasites: Negative, Stool for ova and parasites: Negative. Follow-up IgE and IgG specific to Aspergillus. ANCA. - Patient had bronchoscopy done 05/19/19 which showed oral candidiasis appreciated on the posterior tongue and pharynx along with thick grayish yellow secretions. Doxycylcine with rocephin added for 5 days. - DC mucomyst nebulized as patient thinks it makes him cough more. Add lidocaine nebulized q12hrs for total of 4 doses. c/w Guifenessin with codeine and benzonatate for persistent cough. - Patient denies any risk factor for HIV. Edward-pharyngeal candidiasis likely sec to use of ICS inhaler which was started 2 weeks ago. Oral fluconazole started for the patient. Patient verbally consented for HIV to be tested. (2) Eosinophilia: Patient with persistent dry cough associated with wheezing and peripheral eosinophilia with absolute neutrophil count greater than 1500 Differential diagnosis includes but not limited to parasites(Pargonimiasis), coccidioidomycosis, medication, ABPA, hypereosinophilic syndromes, EGPA, AEP(radiographic findings doesn't fit) Patient denies any personal history of asthma but there is family history of asthma. Patient denies any recent travel history. No exposure to Hay or poultry. He did say that he consumed sushi twice prior to the symptoms. Patient had penile implant in March 2019, no erythema around the site. (3) Wheezing: Subjective Patient seen and examined at bedside. No acute distress. Yesterday late in the afternoon patient had cough it which resulted into code purple. Patient did not desaturate responded to nebulizer. Patient was also given 125 mg of Solu-Medrol Solu-Medrol was increased to 60 mg every 6 hours. At the time of examination patient states that he is feeling better. More energetic. He did start coughing when he started to talk. Is not bringing up any phlegm. Denies any hemoptysis. No nausea or vomiting. Able to tolerate diet. No dysuria, no diarrhea, no hematuria, no hematochezia. Headache is improved. No blurry vision. Patient saturating 95% on room air with heart rate of 93 at rest at the time of examination. Serology for aspergillosis still pending. Strongyloides serology still pending. Stool negative for ova and parasites. Sputum negative for ova. Sputum showing moderate normal jessica. Review of Systems Review of Systems: All systems reviewed & are unremarkable except as noted in HPI & below Physical Exam Physical Exam: Constitutional: No acute distress HEENT: EOMI, PERRLA Respiratory system: Good entry bilaterally, positive expiratory wheeze, mild rhonchi, no crackles CVS: S1-S2 positive, no murmurs or gallops, tachycardia Abdomen: Soft, nontender, nondistended, positive bowel sounds x4 Extremities: +2 pulses bilaterally radialis/ dorsalis pedis, no cyanosis, no edema Neuro: Awake alert oriented x3 Psych: Normal mood and affect G/U: No erythema seen around the site, no [place] Skin: no rashes, warm and dry Lymphatic: no cervical or axillary lymphadenopathy Results & Data Vital Signs (Past 12 Hours) Vital Signs Temp Pulse Pulse Resp BP BP Pulse Ox 05/21/19 07:30 36.5 C 94 H 18 130/70 95 05/21/19 06:12 109 H 24 94 05/21/19 04:09 36.3 C L 84 18 153/75 H 97 05/21/19 03:35 73 18 95 05/20/19 23:38 36.4 C L 93 H 18 151/84 H 93 05/20/19 22:58 104 H 16 95 05/20/19 03:13 05/20/19 03:13 Microbiology 05/19/19 09:45 Bronch Wash,Right Middle Lobe Gram Stain - Final 05/19/19 09:45 Bronch Wash,Right Middle Lobe Bronchoalveolar Lavage Culture - Final Moderate normal jessica. 05/19/19 22:26 Blood Aerobic Blood Culture - Preliminary No growth in Aerobic bottle after 24 hours. 05/19/19 22:26 Blood Anaerobic Blood Culture - Final 05/19/19 22:15 Blood Aerobic Blood Culture - Preliminary No growth in Aerobic bottle after 24 hours. 05/19/19 22:15 Blood Anaerobic Blood Culture - Preliminary No growth in Anaerobic bottle after 24 hours. 05/19/19 08:12 Stool Escherichia coli Shiga Toxins Test - Preliminary 05/19/19 08:12 Stool Stool Culture - Preliminary No Salmonella isolated to date, No Shigella isolated to date, No Campylobacter jejuni isolated to date. 05/19/19 09:45 Bronch Wash,Right Middle Lobe Acid Fast Bacilli Smear - Final PG Care Time/CCT Total # of Minutes Spent Total Time Spent with Patient: Total time spent is greater than 50% in coordination of care (as documented) at patient's floor/unit and/or counseling patient:
[2019-05-21] MEDS: FLUCONAZOLE 100 MG TAB PO SCH (08:32)
[2019-05-21] MEDS: DOXYCYCLINE HYCLATE 100 MG CAP PO SCH ×2 (08:32→21:43)
[2019-05-21] MEDS: BENZONATATE 100 MG CAPSULE PO SCH ×3 (08:32→22:16)
[2019-05-21] MEDS: AMLODIPINE BESYLATE 5 MG TAB PO SCH (08:32)
[2019-05-21] MEDS: ATORVASTATIN 10 MG TAB PO SCH (08:32)
[2019-05-21] MEDS: BUDESONIDE/FORMOTEROL FUMARATE 80/4.5 60 PUFFS/INHALER INH SCH ×2 (08:33→21:42)
[2019-05-21] MEDS: PANTOprazole 40 MG TAB PO SCH (08:36)
[2019-05-21] MEDS ORDERED: LIDOCAINE 4% INH SOLN 4 ML BTL NAE SCH ×2 (09:00→11:00)
--- NOTE | 2019-05-21 09:04 | XRay Report ---
XR chest 1V portable HISTORY: 58 years-old Male f/u follow-up study in a patient with interstitial thickening of the lung bases COMPARISON: Chest radiograph 05/20/2019, CTA chest 05/14/2019 TECHNIQUE: Portable AP view of the chest FINDINGS: Cardiac mediastinal and hilar silhouettes are unchanged. Mild interstitial coarsening of the lung bas es redemonstrated. No pneumothorax or new lobar airspace consolidation. Trace pleural effusions are n ew from comparison. Degenerative changes of the shoulders and spine. IMPRESSION: Trace pleural effusions with interstitial coarsening of the lung bases suggestive of prob able atelectasis. ACT 112: Negative or not required by law. The above report was generated using voice recognition software. It may contain grammatical, syntax o r spelling errors. Electronically signed by: Garrett Osborn M.D. 05/21/2019 9:02 AM
[2019-05-21] MEDS: LIDOCAINE 4% INH SOLN 4 ML BTL NAE SCH ×2 (10:24→19:09)
[2019-05-21] MEDS: ACETAMINOPHEN 325 MG TAB PO PRN (11:32)
[2019-05-21] MEDS: cefTRIAXone SODIUM 2,000 MG in DEXTROSE 5% 50 ML IV SCH (13:23)
[2019-05-21 14:33] LABS: Asperg Fumig Class 0; Asperg Fumig IgE <0.10 kU/L; Aspergillus Flavus Negative (Negative); Aspergillus Niger Negative (Negative); Coccidioides Ab, ID Negative (Negative); Immunoglobulin IgE 38 kU/L (<OR=114)
[2019-05-21] MEDS: IBUPROFEN 600 MG TAB PO PRN ×2 (16:00→21:48)
--- NOTE | 2019-05-21 16:22 | Hospitalist Progress Note ---
Date of Service May 21, 2019 Assessment & Plan (1) Persistent cough: Possible bacterial pneumonia, eosinophilic pneumonia, bronchopulmonary aspergillosis Status post bronchoscopy 05/19/2019: oral candidiasis appreciated on the posterior tongue and pharynx along with thick grayish yellow secretions. Bronchoalveolar lavage: normal jessica, fungal culture: pending Serologies pending: Total IgE= normal, IgE and allergy specific aspergillosis, ANCA= pending, sputum for ova and parasites= negative, stool for ova and parasites= negative -- cough improving -- continue Solu-Medrol to 60 mg every 6 hours, taper tomorrow Continue nebs every 4 hours,Lidocaine nebs every 12 Continue ceftriaxone plus doxycycline As needed guaifenesin DM Oropharyngeal candidiasis Continue fluconazole Hypertension No to be started Eosinophilia Management per #1 DVT prophylaxis Lovenox SC Disposition pending anticipate d/c home on discharge Subjective ff up for bronchospasm, pneumonia seen resting in bed, comfortable, not in distress had a coughing spell this AM, responded with nebs states he feels improved compared to yesterday intermittent coughing spells- less frequent, shorter no fever/chills Review of Systems Review of Systems: All systems reviewed & are unremarkable except as noted in HPI & below Physical Exam Physical Exam: General- oriented x 3, not in distress, speaks in sentences with no effort or accessory muscle use Eyes- anicteric Neck- no JVD Lungs- faint wheeze at the bases, good air entry BL, no crackles Heart- normal rate, regular rhythm; no murmurs Abdomen- normal bowel sounds, nondistended, soft, nontender Extremities- no pretibial edema, no calf tenderness Neuro- alert, oriented x 3; no gross focal neurologic deficits Skin- warm & dry Results & Data Vital Signs (Past 12 Hours) Vital Signs Temp Pulse Pulse Pulse Pulse Pulse Resp 05/21/19 16:03 36.3 C L 95 H 23 05/21/19 15:08 94 H 19 05/21/19 11:54 36.5 C 91 H 20 05/21/19 10:24 100 H 17 05/21/19 10:12 103 H 21 05/21/19 07:30 36.5 C 94 H 18 05/21/19 06:12 109 H 24 BP BP Pulse Ox 05/21/19 16:03 155/81 H 92 05/21/19 15:08 96 05/21/19 11:54 177/71 H 97 05/21/19 10:24 97 05/21/19 10:12 97 05/21/19 07:30 130/70 95 05/21/19 06:12 94
[2019-05-21] MEDS: ENOXAPARIN INJ 40 MG/0.4 ML SYR SQ SCH (18:28)
[2019-05-22] MEDS: LEVALBUTEROL 1.25MG/0.5ML NEB INH SCH ×6 (03:11→22:46)
[2019-05-22] MEDS: IPRATROPIUM BROMIDE NEB SOLN 0.02% 2.5 ML VIAL INH SCH ×6 (03:11→22:46)
[2019-05-22] MEDS: methylPREDNISolone 60 MG in SYRINGE 0 ML IV SCH ×4 (05:51→22:16)
[2019-05-22] MEDS: LEVOTHYROXINE SODIUM 125 MCG TABLET PO SCH (05:52)
[2019-05-22] MEDS: IBUPROFEN 600 MG TAB PO PRN ×3 (05:57→16:41)
[2019-05-22] MEDS: LIDOCAINE 4% INH SOLN 4 ML BTL NAE SCH ×3 (07:07→18:54)
[2019-05-22] MEDS: FLUCONAZOLE 100 MG TAB PO SCH (07:50)
[2019-05-22] MEDS: BUDESONIDE/FORMOTEROL FUMARATE 80/4.5 60 PUFFS/INHALER INH SCH ×2 (07:50→22:16)
[2019-05-22] MEDS: AMLODIPINE BESYLATE 5 MG TAB PO SCH (07:50)
[2019-05-22] MEDS: ATORVASTATIN 10 MG TAB PO SCH (07:50)
[2019-05-22] MEDS: BENZONATATE 100 MG CAPSULE PO SCH ×3 (07:51→22:18)
[2019-05-22] MEDS: PANTOprazole 40 MG TAB PO SCH (07:51)
[2019-05-22] MEDS: DOXYCYCLINE HYCLATE 100 MG CAP PO SCH ×2 (07:51→22:18)
[2019-05-22 08:18] LABS: Rast Aspergillus fumigatus IgG 10.2 H
--- NOTE | 2019-05-22 08:46 | Pulmonology Progress Note ---
Date of Service May 22, 2019 Assessment & Plan (1) Persistent cough: It seems patient has severe hyperreactive airways with underlying undiagnosed asthma which results in bouts/fits of cough on deep inhalation and exertion. Clinically patient doing better than yesterday. He is feeling better. Would continue with Solu-Medrol 60 mg every 6 hours for at least 1 more day and start tapering as of tomorrow to 60 mg every 8 hours. It seems patient will need prolonged taper of prednisone over 14 days at discharge along with cough suppressant. - Bronchoalveolar lavage differential showed neutrophilic. Gram stain showing gram-positive cocci. Follow-up culture. - Cytology of RUL BAL showing atypical squamous cells likely sec to underlying inflammation. Patient is low risk for lung cancer given he has only 2 pack year smoking history quit > 20 years ago. No other exposure to chemicals. Case discussed with pathologist Dr Rose. Total IgE: 36, Sputum for ova, parasites: Negative, Stool for ova and parasites: Negative. IgE and IgG specific to Aspergillus, ANCA, Coccidioides antibody, strongyloides Ab: All negative - Patient had bronchoscopy done 05/19/19 which showed oral candidiasis appreciated on the posterior tongue and pharynx along with thick grayish yellow secretions. Doxycylcine with rocephin added for 5 days. -Continue with lidocaine nebulized q12hrs for total of 4 doses. c/w Guifenessin with codeine and benzonatate for persistent cough. - Patient denies any risk factor for HIV. Edward-pharyngeal candidiasis likely sec to use of ICS inhaler which was started 2 weeks ago. Oral fluconazole started for the patient. Patient verbally consented for HIV to be tested. (2) Eosinophilia: Patient with persistent dry cough associated with wheezing and peripheral eosinophilia with absolute neutrophil count greater than 1500 Differential diagnosis includes but not limited to hypereosinophilic syndromes Total IgE: 36, Sputum for ova, parasites: Negative, Stool for ova and parasites: Negative. IgE and IgG specific to Aspergillus, ANCA, Coccidioides antibody, strongyloides Ab: All negative Patient denies any personal history of asthma but there is family history of asthma. Patient denies any recent travel history. No exposure to Hay or poultry. He did say that he consumed sushi twice prior to the symptoms. Patient had penile implant in March 2019, no erythema around the site. (3) Wheezing: Subjective Patient seen and examined at bedside. No acute distress, no adverse events overnight. Patient had one episode of cough for which lasted less than his usual and responded to bronchodilators. Patient said he feels better than before. He brought up a little bit of phlegm clear. No hemoptysis. Denies any chest pain. No nausea or vomiting. Good appetite. Making good amount of urine. No dizziness, no blurry vision. Of note this is the first time that patient is able to talk in prolonged phrases without coughing or getting short of breath. Review of Systems Review of Systems: All systems reviewed & are unremarkable except as noted in HPI & below Physical Exam Physical Exam: Constitutional: No acute distress HEENT: EOMI, PERRLA Respiratory system: Good entry bilaterally, positive expiratory wheeze bilaterally, mild rhonchi, no crackles CVS: S1-S2 positive, no murmurs or gallops, tachycardia Abdomen: Soft, nontender, nondistended, positive bowel sounds x4 Extremities: +2 pulses bilaterally radialis/ dorsalis pedis, no cyanosis, +2 edema b/l LE more on the left Neuro: Awake alert oriented x3 Psych: Normal mood and affect G/U: No erythema seen around the site, no [place] Skin: no rashes, warm and dry Lymphatic: no cervical or axillary lymphadenopathy Results & Data Vital Signs (Past 12 Hours) Vital Signs Temp Pulse Resp BP Pulse Ox 05/22/19 08:19 36.5 C 95 H 22 141/84 H 96 05/22/19 07:08 100 H 20 97 05/22/19 06:15 107 H 22 98 05/22/19 04:03 36.5 C 83 20 146/78 H 96 05/22/19 03:11 85 18 929 H 05/21/19 23:36 36.3 C L 97 H 20 154/83 H 97 05/21/19 23:07 76 20 90 Laboratory Tests 05/17/19 05/18/19 15:48 11:15 ANCA Negative Coccidioides Ab (ID) Negative Aspergillus flavus Ab Negative Aspergill fumigatus Ab Negative Aspergillus niger Ab Negative Strongyloides IgG Ab NEGATIVE 05/20/19 03:13 05/20/19 03:13 PG Care Time/CCT Total # of Minutes Spent Total Time Spent with Patient: Total time spent is greater than 50% in coordination of care (as documented) at patient's floor/unit and/or counseling patient:
[2019-05-22] MEDS: cefTRIAXone SODIUM 2,000 MG in DEXTROSE 5% 50 ML IV SCH (13:12)
[2019-05-22 15:51] LABS: BUN Creatinine Ratio 18.2 (10-20); Calcium 9.2 mg/dl (8.5-10.1); Creatinine Clr Calc Pharmacy 81.4 ml/min; Est GFR (African American) 65.9; Est GFR (Non-African American) 56.8; Potassium 4.2 mmol/L (3.5-5.1)
[2019-05-22] MEDS: ENOXAPARIN INJ 40 MG/0.4 ML SYR SQ SCH (17:35)
--- NOTE | 2019-05-22 20:05 | Hospitalist Progress Note ---
Date of Service May 22, 2019 Assessment & Plan (1) Persistent cough: Possible bacterial pneumonia, eosinophilic pneumonia, bronchopulmonary aspergillosis Status post bronchoscopy 05/19/2019: oral candidiasis appreciated on the posterior tongue and pharynx along with thick grayish yellow secretions. Bronchoalveolar lavage: normal jessica, fungal culture: pending Serologies pending: Total IgE= normal, IgE and allergy specific aspergillosis, ANCA= pending, sputum for ova and parasites= negative, stool for ova and parasites= negative -- cough continues -- continue Solu-Medrol 60 mg every 6 hours Continue nebs every 4 hours, Mucomyst Continue ceftriaxone plus doxycycline As needed guaifenesin DM Oropharyngeal candidiasis Continue fluconazole Hypertension monitor on Amlodipine Eosinophilia Management per #1 DVT prophylaxis Lovenox SC Disposition pending anticipate d/c home on discharge Subjective delayed entry date of service as noted above seen sitting up in bed, comfortable in good spirits had one coughing episode today, less severe coughing less, breathing is improving denies other symptom Review of Systems Review of Systems: All systems reviewed & are unremarkable except as noted in HPI & below Physical Exam Physical Exam: General- oriented x 3, not in distress, speaks in sentences with no effort or accessory muscle use Eyes- anicteric Neck- no JVD Lungs- very faint wheeze bilaterally, good air entry BL Heart- normal rate, regular rhythm; no murmurs Abdomen- normal bowel sounds, nondistended, soft, nontender Extremities- mild pretibial edema, no calf tenderness Neuro- alert, oriented x 3; no gross focal neurologic deficits Skin- warm & dry Results & Data Vital Signs (Past 12 Hours) Vital Signs Temp Pulse Pulse Resp BP Pulse Ox 05/22/19 18:57 106 H 20 96 05/22/19 18:53 36.8 C 87 21 144/81 H 97 05/22/19 16:09 36.7 C 88 23 161/91 H 96 05/22/19 15:19 105 H 20 95 05/22/19 12:28 36.5 C 105 H 18 142/74 H 94 05/22/19 10:33 101 H 22 95 05/22/19 08:19 36.5 C 95 H 22 141/84 H 96
[2019-05-23] MEDS: LEVALBUTEROL 1.25MG/0.5ML NEB INH SCH ×6 (03:00→23:00)
[2019-05-23] MEDS: IPRATROPIUM BROMIDE NEB SOLN 0.02% 2.5 ML VIAL INH SCH ×6 (03:01→23:02)
[2019-05-23] MEDS: methylPREDNISolone 60 MG in SYRINGE 0 ML IV SCH (04:46)
[2019-05-23] MEDS: LEVOTHYROXINE SODIUM 125 MCG TABLET PO SCH (04:46)
[2019-05-23] MEDS: IBUPROFEN 600 MG TAB PO PRN ×2 (05:28→13:54)
[2019-05-23 08:35] LABS: Creatinine Clr Calc Pharmacy 101.2 ml/min; Est GFR (African American) 85.9; Est GFR (Non-African American) 74.1
[2019-05-23] MEDS: FLUCONAZOLE 100 MG TAB PO SCH (08:36)
[2019-05-23] MEDS: AMLODIPINE BESYLATE 5 MG TAB PO SCH (08:36)
[2019-05-23] MEDS: ATORVASTATIN 10 MG TAB PO SCH (08:36)
[2019-05-23] MEDS: BENZONATATE 100 MG CAPSULE PO SCH ×3 (08:37→19:51)
[2019-05-23] MEDS: BUDESONIDE/FORMOTEROL FUMARATE 80/4.5 60 PUFFS/INHALER INH SCH ×2 (08:37→19:53)
[2019-05-23] MEDS: DOXYCYCLINE HYCLATE 100 MG CAP PO SCH ×2 (08:37→19:51)
[2019-05-23] MEDS: PANTOprazole 40 MG TAB PO SCH ×2 (08:38→10:11)
--- NOTE | 2019-05-23 09:56 | Pulmonology Progress Note ---
Date of Service May 23, 2019 Assessment & Plan (1) Persistent cough: It seems patient has severe hyperreactive airways with underlying undiagnosed asthma which results in bouts/fits of cough on deep inhalation and exertion. Clinically patient is doing much better and talking in full sentences. Start tapering Solu-Medrol to 40 mg every 12 hours and can transition to p.o. prednisone by tomorrow evening. It seems patient will need prolonged taper of prednisone over 14 days at dischar along with cough suppressant. Patient is to follow-up with pulmonary as an outpatient. - Bronchoalveolar lavage differential showed neutrophilic. Gram stain showing gram-positive cocci. Follow-up culture. - Cytology of RUL BAL showing atypical squamous cells likely sec to underlying inflammation. Patient is low risk for lung cancer given he has only 2 pack year smoking history quit > 20 years ago. No other exposure to chemicals. Case discussed with pathologist Dr Rose. Total IgE: 36, Sputum for ova, parasites: Negative, Stool for ova and parasites: Negative. IgE and IgG specific to Aspergillus, ANCA, Coccidioides antibody, strongyloides Ab: All negative - Patient had bronchoscopy done 05/19/19 which showed oral candidiasis appreciated on the posterior tongue and pharynx along with thick grayish yellow secretions. Doxycylcine with rocephin added for 5 days. - C/w Guifenessin with codeine and benzonatate for persistent cough. - Patient denies any risk factor for HIV. Edward-pharyngeal candidiasis likely sec to use of ICS inhaler which was started 2 weeks ago. Oral fluconazole started for the patient. Patient verbally consented for HIV to be tested. (2) Eosinophilia: Patient with persistent dry cough associated with wheezing and peripheral eosinophilia with absolute neutrophil count greater than 1500 Differential diagnosis includes but not limited to hypereosinophilic syndromes Total IgE: 36, Sputum for ova, parasites: Negative, Stool for ova and parasites: Negative. IgE and IgG specific to Aspergillus, ANCA, Coccidioides antibody, strongyloides Ab: All negative Patient denies any personal history of asthma but there is family history of asthma. Patient denies any recent travel history. No exposure to Hay or poultry. He did say that he consumed sushi twice prior to the symptoms. Patient had penile implant in March 2019, no erythema around the site. (3) Wheezing: Subjective Patient seen and examined at bedside. No acute distress, no adverse events overnight. Patient feeling much better. Shortness of breath is improved. Patient did get to cough it yesterday which ended up bringing patient bringing up greenish phlegm. No hemoptysis. Denies any chest pain. Headache is decreased in intensity. Denies any blurry vision. Appetite well. No nausea or vomiting. Having bowel movements. Urinating well. Review of Systems Review of Systems: All systems reviewed & are unremarkable except as noted in HPI & below Physical Exam Physical Exam: Constitutional: No acute distress HEENT: EOMI, PERRLA Respiratory system: Good entry bilaterally, minimsl expiratory wheeze bilaterally, no rhonchi, no crackles CVS: S1-S2 positive, no murmurs or gallops Abdomen: Soft, nontender, nondistended, positive bowel sounds x4 Extremities: +2 pulses bilaterally radialis/ dorsalis pedis, no cyanosis, +2 edema b/l LE more on the left Neuro: Awake alert oriented x3 Psych: Normal mood and affect G/U: No erythema seen around the site, no Collado ENMT: Mallampati Class: II Skin: no rashes, warm and dry Lymphatic: no cervical or axillary lymphadenopathy Results & Data Vital Signs (Past 12 Hours) Vital Signs Temp Pulse Pulse Resp BP BP Pulse Ox 05/23/19 07:55 36.3 C L 88 18 159/60 H 97 05/23/19 07:14 92 H 16 97 05/23/19 03:20 36.5 C 70 18 150/83 H 96 05/23/19 03:01 70 14 97 05/22/19 23:26 36.4 C L 88 16 178/85 H 153/88 H 96 05/22/19 22:48 91 H 16 97 05/20/19 03:13 05/23/19 07:19 Laboratory Tests 05/18/19 11:15 IgE 38 Coccidioides Ab (ID) Negative Aspergillus flavus Ab Negative Aspergill fumigatus Ab Negative Aspergillus niger Ab Negative Strongyloides IgG Ab NEGATIVE PG Care Time/CCT Total # of Minutes Spent Total Time Spent with Patient: Total time spent is greater than 50% in coordination of care (as documented) at patient's floor/unit and/or counseling patient:
[2019-05-23] MEDS ORDERED: XOPENEX/ATROVENT 1.25mg/0.5MG NEB COMBO NEB PRN (13:23)
[2019-05-23] MEDS ORDERED: HydrALAZINE HCL 20 MG/ML VIAL IV PRN (13:23)
[2019-05-23] MEDS ORDERED: IPRATROPIUM BROMIDE NEB SOLN 0.02% 2.5 ML VIAL INH PRN (13:30)
[2019-05-23] MEDS ORDERED: LEVALBUTEROL 1.25MG/0.5ML NEB INH PRN (13:30)
[2019-05-23] MEDS: cefTRIAXone SODIUM 2,000 MG in DEXTROSE 5% 50 ML IV SCH (13:54)
[2019-05-23] MEDS: ENOXAPARIN INJ 40 MG/0.4 ML SYR SQ SCH (18:34)
[2019-05-23] MEDS ORDERED: SODIUM CHLORIDE 0.65% NA SOLN 45 ML (OCEAN) ONE (19:48)
[2019-05-23] MEDS: LORazepam 0.25 MG/0.5 ML VIAL IV PRN (19:52)
[2019-05-23] MEDS: methylPREDNISolone 40 MG in SYRINGE 0 ML IV SCH (19:52)
[2019-05-23] MEDS: GUAIFENESIN/CODEINE 200MG/20MG 10ML UDC PO PRN (19:52)
--- NOTE | 2019-05-23 20:01 | Hospitalist Progress Note ---
Date of Service May 23, 2019 Assessment & Plan (1) Persistent cough: Possible bacterial pneumonia, eosinophilic pneumonia, bronchopulmonary aspergillosis Status post bronchoscopy 05/19/2019: oral candidiasis appreciated on the posterior tongue and pharynx along with thick grayish yellow secretions. Bronchoalveolar lavage: normal jessica, fungal culture: pending Serologies pending: Total IgE= normal, IgE and allergy specific aspergillosis, ANCA= pending, sputum for ova and parasites= negative, stool for ova and parasites= negative -- cough improving daily -- taper solumedrol to 40mg IV q12h Continue nebs every 4 hours, Mucomyst Continue ceftriaxone plus doxycycline As needed guaifenesin DM Oropharyngeal candidiasis Continue fluconazole Hypertension add Hydralazine IV monitor on Amlodipine Eosinophilia Management per #1 DVT prophylaxis Lovenox SC Disposition pending anticipate d/c home on discharge Subjective ff up for pneumonia, bronchospasms seen sitting up in chair, in good spirits states he continues to feel improved had one coughing spell today, less severe also coughing continues to be less breathing improving no other symptoms Review of Systems Review of Systems: All systems reviewed & are unremarkable except as noted in HPI & below Physical Exam Physical Exam: General- oriented x 3, not in distress, speaks in sentences with no effort or accessory muscle use Eyes- anicteric Neck- no JVD Lungs- clear breath sounds bilaterally, no crackles/wheeze Heart- normal rate, regular rhythm; no murmurs Abdomen- normal bowel sounds, nondistended, soft, nontender Extremities- mild pretibial edema, no calf tenderness Neuro- alert, oriented x 3; no gross focal neurologic deficits Skin- warm & dry Results & Data Vital Signs (Past 12 Hours) Vital Signs Temp Pulse Pulse Pulse Resp BP Pulse Ox 05/23/19 19:04 36.5 C 90 18 160/80 H 96 05/23/19 16:45 102 H 05/23/19 15:24 36.5 C 93 H 18 169/73 H 97 05/23/19 13:32 101 H 20 93 05/23/19 11:20 86 16 94 05/23/19 11:06 36.4 C L 94 H 18 161/79 H 95 05/23/19 10:35 79
[2019-05-23] MEDS ORDERED: AMLODIPINE BESYLATE 5 MG TAB PO ONE (20:06)
[2019-05-24] MEDS: LEVALBUTEROL 1.25MG/0.5ML NEB INH SCH ×6 (03:09→23:17)
[2019-05-24] MEDS: IPRATROPIUM BROMIDE NEB SOLN 0.02% 2.5 ML VIAL INH SCH ×6 (03:09→23:17)
[2019-05-24] MEDS: IBUPROFEN 600 MG TAB PO PRN (05:12)
[2019-05-24] MEDS: LEVOTHYROXINE SODIUM 125 MCG TABLET PO SCH (05:13)
[2019-05-24] MEDS: BUDESONIDE/FORMOTEROL FUMARATE 80/4.5 60 PUFFS/INHALER INH SCH ×2 (07:26→21:01)
[2019-05-24] MEDS: methylPREDNISolone 40 MG in SYRINGE 0 ML IV SCH ×2 (07:26→21:01)
[2019-05-24] MEDS: FLUCONAZOLE 100 MG TAB PO SCH (07:26)
[2019-05-24] MEDS: BENZONATATE 100 MG CAPSULE PO SCH ×3 (07:27→21:01)
[2019-05-24] MEDS: PANTOprazole 40 MG TAB PO SCH (07:27)
[2019-05-24] MEDS: DOXYCYCLINE HYCLATE 100 MG CAP PO SCH ×2 (07:27→21:01)
[2019-05-24] MEDS: AMLODIPINE BESYLATE 5 MG TAB PO SCH (07:28)
[2019-05-24] MEDS: ATORVASTATIN 10 MG TAB PO SCH (07:29)
--- NOTE | 2019-05-24 09:37 | Pulmonology Progress Note ---
Date of Service May 24, 2019 Assessment & Plan (1) Persistent cough: Patient has severe hyperreactive airways with underlying undiagnosed asthma which results in bouts/fits of cough on deep inhalation and exertion. Patient had some bouts of cough yesterday. Continue with Solu-Medrol 40 mg every 12 hours for the time being. Start titrating to PO as of tomorrow. It seems patient will need prolonged taper of prednisone over 14 days at discharge along with cough suppressant. Would recommend 40 mg of prednisone for 5 days followed by 20 mg of prednisone for 5 days and followed by 10 mg of prednisone for 5 days. Give patient combined antihistamine-decongestant (Brophe rniramine-pseudoephedrine) on discharge as well. Patient is to follow-up with pulmonary as an outpatient. Will add Benadryl 25mg for anxiety and cough. If still there is no improvement in cough. Gabapentin could be considered 300mg daily. - Bronchoalveolar lavage differential showed neutrophilic. Gram stain showing gram-positive cocci. Follow-up culture. - Cytology of RUL BAL showing atypical squamous cells likely sec to underlying inflammation. Patient is low risk for lung cancer given he has only 2 pack year smoking history quit > 20 years ago. No other exposure to chemicals. Case discussed with pathologist Dr Rose. Total IgE: 36, Sputum for ova, parasites: Negative, Stool for ova and parasites: Negative. IgE and IgG specific to Aspergillus, ANCA, Coccidioides antibody, strongyloides Ab: All negative - Patient had bronchoscopy done 05/19/19 which showed oral candidiasis appreciated on the posterior tongue and pharynx along with thick grayish yellow secretions. Can DC antibiotics. - C/w Guifenessin with codeine and benzonatate for persistent cough. - Patient denies any risk factor for HIV. Edward-pharyngeal candidiasis likely sec to use of ICS inhaler which was started 2 weeks ago. Oral fluconazole started for the patient. Patient verbally consented for HIV to be tested. (2) Eosinophilia: Patient with persistent dry cough associated with wheezing and peripheral eosinophilia with absolute neutrophil count greater than 1500 Differential diagnosis includes but not limited to hypereosinophilic syndromes Total IgE: 36, Sputum for ova, parasites: Negative, Stool for ova and parasites: Negative. IgE and IgG specific to Aspergillus, ANCA, Coccidioides antibody, strongyloides Ab: All negative Patient denies any personal history of asthma but there is family history of asthma. Patient denies any recent travel history. No exposure to Hay or poultry. He did say that he consumed sushi twice prior to the symptoms. Patient had penile implant in March 2019, no erythema around the site. (3) Wheezing: Subjective Patient seen and examined at bedside. No acute distress. Patient had couple of bouts of cough yesterday. With minimal hemoptysis at the end of coughing episode late night. Patient was coughing little bit at the time of examination. Cough is dry. Was able to talk in full sentences. Denies any chest pain. Headache is decreased in intensity. No nausea or vomiting. Good appetite. Complain of some reflux. Patient is already on Protonix. Advised to take Motrin for his headache with food. Denies any dark-colored stools. Patient was saturating 96% on room air with heart rate of 103 at rest. Review of Systems Review of Systems: All systems reviewed & are unremarkable except as noted in HPI & below Physical Exam Physical Exam: Constitutional: No acute distress HEENT: EOMI, PERRLA Respiratory system: Good entry bilaterally, minimal expiratory wheeze bilaterally, no rhonchi, no crackles CVS: S1-S2 positive, no murmurs or gallops Abdomen: Soft, nontender, nondistended, positive bowel sounds x4 Extremities: +2 pulses bilaterally radialis/ dorsalis pedis, no cyanosis, +1 edema b/l LE more on the left Neuro: Awake alert oriented x3 Psych: Normal mood and affect G/U: No erythema seen around the site, no Collado ENMT: Mallampati Class: II Skin: no rashes, warm and dry Lymphatic: no cervical or axillary lymphadenopathy Results & Data Vital Signs (Past 12 Hours) Vital Signs Temp Pulse Pulse Pulse Resp BP Pulse Ox 05/24/19 07:35 36.4 C L 94 H 20 151/74 H 96 05/24/19 07:05 20 97 05/24/19 06:45 89 05/24/19 04:12 84 20 97 05/24/19 03:47 36.5 C 96 H 18 144/87 H 97 05/23/19 23:14 36.4 C L 82 16 153/84 H 97 05/23/19 23:02 78 18 97 Laboratory Tests 05/18/19 11:15 A.fumigatus Allerg IgE <0.10 A.fumigatus Allerg IgG 10.2 H IgE 38 Coccidioides Ab (ID) Negative Aspergillus flavus Ab Negative Aspergill fumigatus Ab Negative Aspergillus niger Ab Negative Strongyloides IgG Ab NEGATIVE 05/20/19 03:13 05/23/19 07:19 PG Care Time/CCT Total # of Minutes Spent Total Time Spent with Patient: Total time spent is greater than 50% in coordination of care (as documented) at patient's floor/unit and/or counseling patient:
[2019-05-24] MEDS ORDERED: GABAPENTIN 300 MG CAP PO SCH (10:00)
[2019-05-24] MEDS: cefTRIAXone SODIUM 2,000 MG in DEXTROSE 5% 50 ML IV SCH (13:43)
[2019-05-24] MEDS: ENOXAPARIN INJ 40 MG/0.4 ML SYR SQ SCH (17:16)
--- NOTE | 2019-05-24 18:52 | Hospitalist Progress Note ---
Date of Service May 24, 2019 Assessment & Plan (1) Persistent cough: Possible bacterial pneumonia, eosinophilic pneumonia, bronchopulmonary aspergillosis Status post bronchoscopy 05/19/2019: oral candidiasis appreciated on the posterior tongue and pharynx along with thick grayish yellow secretions. Bronchoalveolar lavage: normal jessica, fungal culture: pending Serologies pending: Total IgE= normal, IgE and allergy specific aspergillosis, ANCA= pending, sputum for ova and parasites= negative, stool for ova and parasites= negative -- cough improving --Continue Solumedrol to 40mg IV q12h, anticipate to transition to prednisone slow taper starting tomorrow Continue nebs every 4 hours DC ceftriaxone, continue doxycycline As needed guaifenesin DM Oropharyngeal candidiasis Continue fluconazole Hypertension Likely secondary to high-dose steroids, stress Amlodipine increased to 10 mg p.o. daily Blood pressure improving, monitor Eosinophilia Management per #1 DVT prophylaxis Lovenox SC Disposition pending anticipate d/c home on discharge Subjective Follow-up for severe bronchospasms, possible pneumonia Seen sitting up in bed side chair, comfortable, in good spirits States he had short coughing spell this morning but less severe, shorter in duration Breathing continues to improve Denies other symptoms Review of Systems Review of Systems: All systems reviewed & are unremarkable except as noted in HPI & below Physical Exam Physical Exam: General- oriented x 3, not in distress, speaks in sentences with no effort or accessory muscle use Eyes- anicteric Neck- no JVD Lungs- clear breath sounds, no wheezing, no crackles bilaterally Heart- normal rate, regular rhythm; no murmurs Abdomen- normal bowel sounds, nondistended, soft, nontender Extremities-mild pretibial edema, no calf tenderness Neuro- alert, oriented x 3; no gross focal neurologic deficits Skin- warm & dry Results & Data Vital Signs (Past 12 Hours) Vital Signs Temp Pulse Pulse Resp BP Pulse Ox 05/24/19 15:29 36.6 C 83 18 142/78 H 99 05/24/19 15:20 88 18 98 05/24/19 14:22 87 05/24/19 11:45 36.5 C 98 H 18 136/75 97 05/24/19 10:59 72 16 98 05/24/19 07:35 36.4 C L 94 H 20 151/74 H 96 05/24/19 07:05 20 97
[2019-05-25] MEDS: LEVALBUTEROL 1.25MG/0.5ML NEB INH SCH ×6 (03:28→22:54)
[2019-05-25] MEDS: IPRATROPIUM BROMIDE NEB SOLN 0.02% 2.5 ML VIAL INH SCH ×6 (03:28→22:54)
[2019-05-25] MEDS: LEVOTHYROXINE SODIUM 125 MCG TABLET PO SCH (06:13)
[2019-05-25] MEDS: ATORVASTATIN 10 MG TAB PO SCH (07:31)
[2019-05-25] MEDS: AMLODIPINE BESYLATE 5 MG TAB PO SCH (07:31)
[2019-05-25] MEDS: FLUCONAZOLE 100 MG TAB PO SCH (07:32)
[2019-05-25] MEDS: DOXYCYCLINE HYCLATE 100 MG CAP PO SCH ×2 (07:32→20:44)
[2019-05-25] MEDS: PANTOprazole 40 MG TAB PO SCH (07:33)
[2019-05-25] MEDS: BENZONATATE 100 MG CAPSULE PO SCH ×3 (07:35→20:45)
[2019-05-25] MEDS: BUDESONIDE/FORMOTEROL FUMARATE 80/4.5 60 PUFFS/INHALER INH SCH ×2 (07:37→20:44)
--- NOTE | 2019-05-25 08:12 | Pulmonology Progress Note ---
Date of Service May 25, 2019 Assessment & Plan (1) Persistent cough: Patient has severe hyperreactive airways with underlying undiagnosed asthma which results in bouts/fits of cough on deep inhalation and exertion. Patient feeling much better. Will transition IV Solu-Medrol to p.o. prednisone 40 mg. It seems patient will need prolonged taper of prednisone over 14 days at discharge along with cough suppressant. Would recommend 40 mg of prednisone for 5 days followed by 20 mg of prednisone for 5 days and followed by 10 mg of prednisone for 5 days. Give patient combined antihistamine-decongestant (Bropherniramine-pseudoephedrine) on discharge and Diphenhydramine 25mg once a day. Patient is to follow-up with pulmonary as an outpatient. From pulmonary perspective patient should be stable for discharge by tomorrow. Will add Benadryl 25mg for anxiety and cough. Lasting Benadryl has helped the patient significantly. If still there is no improvement in cough. Gabapentin could be considered 300mg daily. - Bronchoalveolar lavage differential showed neutrophilic. Gram stain showing gram-positive cocci. Culture growing Jenny albicans which is normal jessica in the lungs also given the patient had oral candidiasis. - Cytology of RUL BAL showing atypical squamous cells likely sec to underlying inflammation. Patient is low risk for lung cancer given he has only 2 pack year smoking history quit > 20 years ago. No other exposure to chemicals. Case discussed with pathologist Dr Rose. Total IgE: 36, Sputum for ova, parasites: Negative, Stool for ova and parasites: Negative. IgE and IgG specific to Aspergillus, ANCA, Coccidioides antibody, strongyloides Ab: All negative - Patient had bronchoscopy done 05/19/19 which showed oral candidiasis appreciated on the posterior tongue and pharynx along with thick grayish yellow secretions. Can DC antibiotics. - C/w Guifenessin with codeine and benzonatate for persistent cough. - Patient denies any risk factor for HIV. Edward-pharyngeal candidiasis likely sec to use of ICS inhaler which was started 2 weeks ago. Oral fluconazole started for the patient. Patient verbally consented for HIV to be tested. (2) Eosinophilia: Patient with persistent dry cough associated with wheezing and peripheral eosinophilia with absolute neutrophil count greater than 1500 Differential diagnosis includes but not limited to hypereosinophilic syndromes Total IgE: 36, Sputum for ova, parasites: Negative, Stool for ova and parasites: Negative. IgE and IgG specific to Aspergillus, ANCA, Coccidioides antibody, strongyloides Ab: All negative Patient denies any personal history of asthma but there is family history of asthma. Patient denies any recent travel history. No exposure to Hay or poultry. He did say that he consumed sushi twice prior to the symptoms. Patient had penile implant in March 2019, no erythema around the site. (3) Wheezing: Subjective Patient seen and examined at bedside. No acute distress, no adverse events overnight. Patient feeling much better. Cough is decreased in intensity. No more cough fits. Patient was started on Benadryl yesterday I think that is helping him calm down and decrease the cough intensity. Denies any chest pain, headache is decreased in intensity. No nausea or vomiting. Good appetite. No abdominal pain. No hematochezia, no hematuria. Review of Systems Review of Systems: All systems reviewed & are unremarkable except as noted in HPI & below Physical Exam Physical Exam: Constitutional: No acute distress HEENT: EOMI, PERRLA Respiratory system: Good entry bilaterally, no wheeze bilaterally, no rhonchi, no crackles CVS: S1-S2 positive, no murmurs or gallops Abdomen: Soft, nontender, nondistended, positive bowel sounds x4 Extremities: +2 pulses bilaterally radialis/ dorsalis pedis, no cyanosis, +1 edema b/l LE more on the left Neuro: Awake alert oriented x3 Psych: Normal mood and affect G/U: No erythema seen around the site, no Coll[place] ENMT: Mallampati Class: II Skin: no rashes, warm and dry Lymphatic: no cervical or axillary lymphadenopathy Results & Data Vital Signs (Past 12 Hours) Vital Signs Temp Pulse Resp BP BP Pulse Ox 05/25/19 07:52 36.8 C 79 18 169/79 H 96 05/25/19 07:04 81 16 97 05/25/19 03:28 94 H 18 94 05/25/19 03:23 36.4 C L 85 16 170/84 H 97 05/24/19 23:17 87 18 97 05/24/19 23:05 36.7 C 84 16 166/84 H 97 Laboratory Tests 05/18/19 11:15 A.fumigatus Allerg IgE <0.10 A.fumigatus Allerg IgG 10.2 H IgE 38 Coccidioides Ab (ID) Negative Aspergillus flavus Ab Negative Aspergill fumigatus Ab Negative Aspergillus niger Ab Negative Strongyloides IgG Ab NEGATIVE 05/20/19 03:13 05/23/19 07:19 PG Care Time/CCT Total # of Minutes Spent Total Time Spent with Patient: Total time spent is greater than 50% in coordination of care (as documented) at patient's floor/unit and/or counseling patient:
[2019-05-25] MEDS ORDERED: methylPREDNISolone 40 MG in SYRINGE 0 ML IV ONE (08:45)
[2019-05-25] MEDS: LORazepam 0.25 MG/0.5 ML VIAL IV PRN (10:19)
[2019-05-25] MEDS ORDERED: LIDOCAINE 4% INH SOLN 4 ML BTL NAE PRN (10:44)
[2019-05-25] MEDS ORDERED: GABAPENTIN 300 MG CAP PO PRN (11:04)
[2019-05-25] MEDS: GUAIFENESIN/CODEINE 200MG/20MG 10ML UDC PO PRN (11:07)
--- NOTE | 2019-05-25 11:29 | Hospitalist Progress Note ---
Date of Service May 25, 2019 Assessment & Plan (1) Persistent cough: Possible bacterial pneumonia, eosinophilic pneumonia, bronchopulmonary aspergillosis Status post bronchoscopy 05/19/2019: oral candidiasis appreciated on the posterior tongue and pharynx along with thick grayish yellow secretions. Bronchoalveolar lavage: normal jessica, fungal culture: pending Serologies pending: Total IgE= normal, IgE and allergy specific aspergillosis, ANCA= pending, sputum for ova and parasites= negative, stool for ova and parasites= negative --Patient experienced another coughing spell this morning Discussed with Dr. Sinclair Will continue Solumedrol to 40mg IV q12h, anticipate to transition to prednisone slow taper starting tomorrow Continue nebs every 4 hours DC ceftriaxone, continue doxycycline until tonight As needed guaifenesin DM --Continue to monitor Oropharyngeal candidiasis Continue fluconazole Hypertension Likely secondary to high-dose steroids, stress Amlodipine increased to 10 mg p.o. daily Blood pressure improving, monitor Eosinophilia Management per #1 DVT prophylaxis Lovenox SC Disposition pending anticipate d/c home on discharge Subjective Follow-up for pneumonia, severe bronchospasms Patient had another episode of coughing spell this morning lasting about 30 minutes Relieved by nebs and lidocaine nebulization, guaifenesin with codeine Reports coughing up yellow sputum and then leading to another bout of coughing spell Evaluated in the afternoon, patient was resting recliner, comfortable States breathing has improved since No other symptoms Review of Systems Review of Systems: All systems reviewed & are unremarkable except as noted in HPI & below Physical Exam Physical Exam: General- oriented x 3, not in distress, speaks in sentences with no effort or accessory muscle use Eyes- anicteric Neck- no JVD Lungs-faint wheeze and rhonchi bilateral bases, in the afternoon Heart- normal rate, regular rhythm; no murmurs Abdomen- normal bowel sounds, nondistended, soft, nontender Extremities-mild pedal edema, no calf tenderness Neuro- alert, oriented x 3; no gross focal neurologic deficits Skin- warm & dry Results & Data Vital Signs (Past 12 Hours) Vital Signs Temp Pulse Pulse Resp BP Pulse Ox 05/25/19 10:57 107 H 20 97 05/25/19 10:24 130 H 22 95 05/25/19 08:00 93 H 05/25/19 07:52 36.8 C 79 18 169/79 H 96 05/25/19 07:04 81 16 97 05/25/19 03:28 94 H 18 94 05/25/19 03:23 36.4 C L 85 16 170/84 H 97
[2019-05-25] MEDS: IPRATROPIUM BROMIDE NASAL SPRAY 0.06% 15ML NAE SCH ×2 (14:27→22:22)
[2019-05-25] MEDS ORDERED: LIDOCAINE 4% INH SOLN 4 ML BTL NEB PRN (15:00)
[2019-05-25] MEDS: ENOXAPARIN INJ 40 MG/0.4 ML SYR SQ SCH (17:43)
[2019-05-25] MEDS: IBUPROFEN 600 MG TAB PO PRN (20:42)
[2019-05-25] MEDS: methylPREDNISolone 40 MG in SYRINGE 0 ML IV SCH (20:43)
[2019-05-26] MEDS: IPRATROPIUM BROMIDE NEB SOLN 0.02% 2.5 ML VIAL INH SCH ×6 (03:13→22:50)
[2019-05-26] MEDS: LEVALBUTEROL 1.25MG/0.5ML NEB INH SCH ×6 (03:13→22:50)
[2019-05-26] MEDS: IPRATROPIUM BROMIDE NASAL SPRAY 0.06% 15ML NAE SCH ×3 (05:37→20:18)
[2019-05-26] MEDS: LEVOTHYROXINE SODIUM 125 MCG TABLET PO SCH (05:38)
[2019-05-26 06:30] LABS: Creatinine Clr Calc Pharmacy 102.9 ml/min; Est GFR (African American) 87.8; Est GFR (Non-African American) 75.8
[2019-05-26] MEDS: BENZONATATE 100 MG CAPSULE PO SCH ×3 (07:57→20:18)
[2019-05-26] MEDS: AMLODIPINE BESYLATE 5 MG TAB PO SCH (07:57)
[2019-05-26] MEDS: ATORVASTATIN 10 MG TAB PO SCH (07:57)
[2019-05-26] MEDS: BUDESONIDE/FORMOTEROL FUMARATE 80/4.5 60 PUFFS/INHALER INH SCH ×2 (07:59→20:17)
[2019-05-26] MEDS: PANTOprazole 40 MG TAB PO SCH (07:59)
[2019-05-26] MEDS: FLUCONAZOLE 100 MG TAB PO SCH (07:59)
[2019-05-26] MEDS: methylPREDNISolone 40 MG in SYRINGE 0 ML IV SCH ×2 (07:59→20:17)
[2019-05-26] MEDS: DOXYCYCLINE HYCLATE 100 MG CAP PO SCH (08:00)
[2019-05-26] MEDS ORDERED: predniSONE 20 MG TAB PO SCH (09:00)
[2019-05-26] MEDS: GABAPENTIN 300 MG CAP PO SCH (10:01)
--- NOTE | 2019-05-26 10:06 | Pulmonology Progress Note ---
Date of Service May 26, 2019 Assessment & Plan (1) Persistent cough: Patient has severe hyperreactive airways with underlying undiagnosed asthma which results in bouts/fits of cough on deep inhalation and exertion. Patient feeling better and energetic which he is usually early in the morning when I see him. Transition to Po Prednisone tomorrow. Patient will need prolonged taper of prednisone over 14 days at discharge along with cough suppressant. Would recommend 40 mg of prednisone for 5 days followed by 20 mg of prednisone for 5 days and followed by 10 mg of prednisone for 5 days. Give patient combined antihistamine-decongestant (Bropherniramine-pseudoephedrine) on discharge and Diphenhydramine 25mg once a day and Gabapentin once a day. Also provided patient with nebulized DuoNeb's to be taken at home as needed. Patient is to follow-up with pulmonary as an outpatient. Will add Benadryl 25mg for anxiety and cough. Lasting Benadryl has helped the patient significantly. Gabapentin 300mg PO daily started today. - Bronchoalveolar lavage differential showed neutrophilic. Gram stain showing gram-positive cocci. Culture growing Jenny albicans which is normal jessica in the lungs also given the patient had oral candidiasis. - Cytology of RUL BAL showing atypical squamous cells likely sec to underlying inflammation. Patient is low risk for lung cancer given he has only 2 pack year smoking history quit > 20 years ago. No other exposure to chemicals. Case discussed with pathologist Dr Rose. Total IgE: 36, Sputum for ova, parasites: Negative, Stool for ova and parasites: Negative. IgE and IgG specific to Aspergillus, ANCA, Coccidioides antibody, strongyloides Ab: All negative - Patient had bronchoscopy done 05/19/19 which showed oral candidiasis appreciated on the posterior tongue and pharynx along with thick grayish yellow secretions. Off antibiotics - C/w Guifenessin with codeine and benzonatate for persistent cough. - Patient denies any risk factor for HIV. Edward-pharyngeal candidiasis likely sec to use of ICS inhaler which was started 2 weeks ago. Oral fluconazole started for the patient. Patient verbally consented for HIV to be tested. (2) Eosinophilia: Patient with persistent dry cough associated with wheezing and peripheral eosinophilia with absolute neutrophil count greater than 1500 Differential diagnosis includes but not limited to hypereosinophilic syndromes Total IgE: 36, Sputum for ova, parasites: Negative, Stool for ova and parasites: Negative. IgE and IgG specific to Aspergillus, ANCA, Coccidioides antibody, strongyloides Ab: All negative Patient denies any personal history of asthma but there is family history of asthma. Patient denies any recent travel history. No exposure to Hay or poultry. He did say that he consumed sushi twice prior to the symptoms. Patient had penile implant in March 2019, no erythema around the site. (3) Wheezing: Subjective Patient seen and examined at bedside. No respiratory distress, no adverse events overnight. Yesterday late in the afternoon patient had a bout of cough fit lasting for approximately 10 to 15 minutes. No desaturation at that time responded to inhaled therapy. Patient still says that overall he feels better. Shortness of breath is improved. Except for the cough fits that he get he is feeling more energetic. He does bring up some clear phlegm. He was coughing at the time of examination as well. Denies any hemoptysis. No nausea vomiting. Good appetite. Review of Systems Review of Systems: All systems reviewed & are unremarkable except as noted in HPI & below Physical Exam Physical Exam: Constitutional: No acute distress HEENT: EOMI, PERRLA Respiratory system: Good entry bilaterally, no wheeze bilaterally, no rhonchi, no crackles CVS: S1-S2 positive, no murmurs or gallops Abdomen: Soft, nontender, nondistended, positive bowel sounds x4 Extremities: +2 pulses bilaterally radialis/ dorsalis pedis, no cyanosis, +1 edema b/l LE more on the left Neuro: Awake alert oriented x3 Psych: Normal mood and affect G/U: No erythema seen around the site, no [place] Skin: no rashes, warm and dry Lymphatic: no cervical or axillary lymphadenopathy Results & Data Vital Signs (Past 12 Hours) Vital Signs Temp Pulse Pulse Resp BP BP Pulse Ox 05/26/19 09:17 89 05/26/19 07:56 36.8 C 76 16 142/69 H 99 05/26/19 07:03 97 H 16 98 05/26/19 03:41 36.4 C L 88 16 174/78 H 96 05/26/19 03:16 90 16 97 05/26/19 00:19 36.5 C 91 H 20 152/88 H 95 05/26/19 00:00 89 05/25/19 22:55 85 18 98 Laboratory Tests 05/18/19 11:15 A.fumigatus Allerg IgE <0.10 A.fumigatus Allerg IgG 10.2 H IgE 38 Coccidioides Ab (ID) Negative Aspergillus flavus Ab Negative Aspergill fumigatus Ab Negative Aspergillus niger Ab Negative Strongyloides IgG Ab NEGATIVE 05/20/19 03:13 05/26/19 05:40 PG Care Time/CCT Total # of Minutes Spent Total Time Spent with Patient: Total time spent is greater than 50% in coordination of care (as documented) at patient's floor/unit and/or counseling patient:
[2019-05-26] MEDS: ENOXAPARIN INJ 40 MG/0.4 ML SYR SQ SCH (18:43)
[2019-05-27] MEDS: LEVALBUTEROL 1.25MG/0.5ML NEB INH SCH ×3 (03:45→13:11)
[2019-05-27] MEDS: IPRATROPIUM BROMIDE NEB SOLN 0.02% 2.5 ML VIAL INH SCH ×3 (03:45→13:11)
[2019-05-27] MEDS: IPRATROPIUM BROMIDE NASAL SPRAY 0.06% 15ML NAE SCH (06:05)
[2019-05-27] MEDS: LEVOTHYROXINE SODIUM 125 MCG TABLET PO SCH (06:05)
--- NOTE | 2019-05-27 07:16 | Hospitalist Progress Note ---
Date of Service May 27, 2019 Assessment & Plan (1) Persistent cough: Possible bacterial pneumonia, eosinophilic pneumonia, bronchopulmonary aspergillosis Status post bronchoscopy 05/19/2019: oral candidiasis appreciated on the posterior tongue and pharynx along with thick grayish yellow secretions. Bronchoalveolar lavage: normal jessica, fungal culture: pending Serologies pending: Total IgE= normal, IgE and allergy specific aspergillosis, ANCA= pending, sputum for ova and parasites= negative, stool for ova and parasites= negative -- coughing is improved today Will continue Solumedrol to 40mg IV q12h, anticipate to transition to prednisone slow taper starting tomorrow Continue nebs every 4 hours Continue Gabapentin daily DC ceftriaxone, and doxycycline As needed guaifenesin DM --Continue to monitor Oropharyngeal candidiasis Continue fluconazole to complete 2 weeks Hypertension Likely secondary to high-dose steroids, stress Amlodipine increased to 10 mg p.o. daily Blood pressure improving, monitor Eosinophilia Management per #1 DVT prophylaxis Lovenox SC Disposition pending anticipate d/c home on discharge Subjective delayed entry date of service 05/26/19 seen resting in chair, comfortable in good spirits states cough is much better after taking Gabapentin less sputum no severe coughing spell since this morning no other symptoms Review of Systems Review of Systems: All systems reviewed & are unremarkable except as noted in HPI & below Physical Exam Physical Exam: General- oriented x 3, not in distress, speaks in sentences with no effort or accessory muscle use Eyes- anicteric Neck- no JVD Lungs- very faint wheeze at the base no crackles Heart- normal rate, regular rhythm; no murmurs Abdomen- normal bowel sounds, nondistended, soft, nontender Extremities- pedal edema, no calf tenderness Neuro- alert, oriented x 3; no gross focal neurologic deficits Skin- warm & dry Results & Data Vital Signs (Past 12 Hours) Vital Signs Temp Pulse Resp BP Pulse Ox 05/27/19 07:07 36.5 C 91 H 19 156/86 H 97 05/27/19 03:46 100 H 18 98 05/27/19 03:41 36.6 C 95 H 19 134/87 96 05/27/19 00:42 36.9 C 103 H 18 139/81 94 05/26/19 22:51 87 14 94 05/26/19 19:33 36.6 C 105 H 19 152/82 H 97
--- NOTE | 2019-05-27 08:04 | Pulmonology Progress Note ---
Date of Service May 27, 2019 Assessment & Plan (1) Persistent cough: Patient has severe hyperreactive airways with underlying undiagnosed asthma which results in bouts/fits of cough on deep inhalation and exertion. Patient feeling way better today. Transition to prednisone today itself Patient will need prolonged taper of prednisone over 14 days at discharge along with cough suppressant. Would recommend 40 mg of prednisone for 5 days followed by 20 mg of prednisone for 5 days and followed by 10 mg of prednisone for 5 days. Give patient combined antihistamine-decongestant (Bropherniramine- pseudoephedrine) on discharge and Diphenhydramine 25mg once a day and Gabapentin once a day. Protonix 40mg daily while he is on Prednisone. Also provide patient with nebulized DuoNeb's to be taken at home as needed. Patient is to follow-up with pulmonary as an outpatient. Continue with Benadryl 25mg for anxiety and cough. Gabapentin 300mg PO daily started on 05/26/2019 - Bronchoalveolar lavage differential showed neutrophilic. Gram stain showing gram-positive cocci. Culture growing Jenny albicans which is normal jessica in the lungs also given the patient had oral candidiasis. - Cytology of RUL BAL showing atypical squamous cells likely sec to underlying inflammation. Patient is low risk for lung cancer given he has only 2 pack year smoking history quit > 20 years ago. No other exposure to chemicals. Case discussed with pathologist Dr Rose. Total IgE: 36, Sputum for ova, parasites: Negative, Stool for ova and parasites: Negative. IgE and IgG specific to Aspergillus, ANCA, Coccidioides antibody, strongyloides Ab: All negative - Patient had bronchoscopy done 05/19/19 which showed oral candidiasis appreciated on the posterior tongue and pharynx along with thick grayish yellow secretions. Off antibiotics - C/w Guifenessin with codeine and benzonatate for persistent cough. - Patient denies any risk factor for HIV. Edward-pharyngeal candidiasis likely sec to use of ICS inhaler which was started 2 weeks ago. Oral fluconazole for total of 2 weeks. (2) Eosinophilia: Patient with persistent dry cough associated with wheezing and peripheral eosinophilia with absolute neutrophil count greater than 1500 Differential diagnosis includes but not limited to hypereosinophilic syndromes Total IgE: 36, Sputum for ova, parasites: Negative, Stool for ova and parasites: Negative. IgE and IgG specific to Aspergillus, ANCA, Coccidioides antibody, strongyloides Ab: All negative Patient denies any personal history of asthma but there is family history of asthma. Patient denies any recent travel history. No exposure to Hay or poultry. He did say that he consumed sushi twice prior to the symptoms. Patient had penile implant in March 2019, no erythema around the site. (3) Wheezing: Subjective Patient seen and examined at bedside. No acute distress, no adverse events overnight. Patient at the time of examination states that this is the best he has felt so far. Cough is decreased in intensity and frequency. No hemoptysis. No chest pain. Denies any nausea or vomiting. No dizziness, minimal headache. Tolerating diet. Review of Systems Review of Systems: All systems reviewed & are unremarkable except as noted in HPI & below Physical Exam Physical Exam: Constitutional: No acute distress HEENT: EOMI, PERRLA Respiratory system: Good entry bilaterally, no wheeze bilaterally, no rhonchi, no crackles CVS: S1-S2 positive, no murmurs or gallops Abdomen: Soft, nontender, nondistended, positive bowel sounds x4 Extremities: +2 pulses bilaterally radialis/ dorsalis pedis, no cyanosis, +1 edema b/l LE more on the left Neuro: Awake alert oriented x3 Psych: Normal mood and affect G/U: No erythema seen around the site, no [place] ENMT: Mallampati Class: II Skin: no rashes, warm and dry Lymphatic: no cervical or axillary lymphadenopathy Results & Data Vital Signs (Past 12 Hours) Vital Signs Temp Pulse Resp BP Pulse Ox 05/27/19 07:07 36.5 C 91 H 19 156/86 H 97 05/27/19 03:46 100 H 18 98 05/27/19 03:41 36.6 C 95 H 19 134/87 96 05/27/19 00:42 36.9 C 103 H 18 139/81 94 05/26/19 22:51 87 14 94 05/20/19 03:13 05/26/19 05:40 PG Care Time/CCT Total # of Minutes Spent Total Time Spent with Patient: Total time spent is greater than 50% in coordination of care (as documented) at patient's floor/unit and/or counseling patient:
[2019-05-27] MEDS: methylPREDNISolone 40 MG in SYRINGE 0 ML IV SCH (08:45)
[2019-05-27] MEDS: PANTOprazole 40 MG TAB PO SCH (08:45)
[2019-05-27] MEDS: FLUCONAZOLE 100 MG TAB PO SCH (08:46)
[2019-05-27] MEDS: BUDESONIDE/FORMOTEROL FUMARATE 80/4.5 60 PUFFS/INHALER INH SCH (08:46)
[2019-05-27] MEDS: AMLODIPINE BESYLATE 5 MG TAB PO SCH (08:47)
[2019-05-27] MEDS: BENZONATATE 100 MG CAPSULE PO SCH (08:47)
[2019-05-27] MEDS: ATORVASTATIN 10 MG TAB PO SCH (08:47)
[2019-05-27] MEDS: GABAPENTIN 300 MG CAP PO SCH (08:47)
--- NOTE | 2019-05-27 11:04 | Hospitalist Progress Note ---
Date of Service May 27, 2019 Assessment & Plan (1) Reactive airway disease: (1) Persistent cough: Possible bacterial pneumonia in the setting of sever hyperreactive airways with underlying undiagnosed asthma - patient had episodes of severe cough with deep inspiration and exertion while admitted - Pulmonary consulted- Dr. Tristan Sinclair from [facility] Status post bronchoscopy 05/19/2019: oral candidiasis appreciated on the posterior tongue and pharynx along with thick grayish yellow secretions. per Dr. Sinclair: Bronchoalveolar lavage: Bronchoalveolar lavage: normal jessica, Culture growing Jenny albicans which is normal jessica in the lungs also given the patient had oral candidiasis. - Cytology of RUL BAL showing atypical squamous cells likely sec to underlying inflammation. Patient is low risk for lung cancer given he has only 2 pack year smoking history quit > 20 years ago. No other exposure to chemicals. Case discussed with pathologist Dr Rose. Total IgE: 36, Sputum for ova, parasites: Negative, Stool for ova and parasites: Negative. IgE and IgG specific to Aspergillus, ANCA, Coccidioides antibody, strongyloides Ab: All negative -- patient completed IV Ceftriaxone and Doxycycline given Nebs, high dose IV Solumedrol cough suppressants given including Robitussin with codeine, Tessalon pearls, Benadryl and Gabapenting -- patient gradually improved coughing has significantly improved cleared for discharge by Pulmonary Service -- discharge plan: Prednisone taper 40mg x 5 days, 20 mg x 5 days, 10mg x 5 days then stop Symbicort BID levalbulterol/ipratropium TID, and q4h PRN Gabapentin daily Tessalon pearls TID *patient declines Robitussin with codeine and Benadryl -- ff up with PCP next week ff up with [facility] in 2 weeks (2) Oropharyngeal candidiasis Edward-pharyngeal candidiasis likely sec to use of ICS inhaler which was started 2 weeks ago. Continue fluconazole to complete 2 weeks (6 more days) (3) Hypertension BP noted to be as high as systolic 170s Likely secondary to high-dose steroids, stress Amlodipine 10 mg p.o. daily given Blood pressure improving -- as patient is now being transitioned to Prednisone, anticipate improvement of hypertension will maintain on Amlodipine 5mg po daily, BP check on ff up with PCP next week, wean off accordingly (4) Eosinophilia per Pulmonary: Patient with persistent dry cough associated with wheezing and peripheral eosinophilia with absolute neutrophil count greater than 1500 Differential diagnosis includes but not limited to hypereosinophilic syndromes Total IgE: 36, Sputum for ova, parasites: Negative, Stool for ova and parasites: Negative. IgE and IgG specific to Aspergillus, ANCA, Coccidioides antibody, strongyloides Ab: All negative Patient denies any personal history of asthma but there is family history of asthma. Patient denies any recent travel history. No exposure to Hay or poultry. -- ff up with Pulmonary Clinic in 2 weeks DVT prophylaxis Lovenox SC Disposition d/c home ff up with PCP in 1 week (scheduling office will call patient, they are closed today) ff up with Pulm Clinic as noted above Subjective ff up for pneumonia, severe bronchospasms seen resting in chair, comfortable, in good spirits states he feels much better overall feels that he is finally "getting over this" less coughing which lasts much shorter, no uncontrollable coughing spells less sputum production no chest pain, headache, dizziness, palpitations ambulating with no problems denies other symptoms Review of Systems Review of Systems: All systems reviewed & are unremarkable except as noted in HPI & below Physical Exam Physical Exam: General- oriented x 3, not in distress, speaks in sentences with no effort or accessory muscle use Eyes- anicteric Neck- no JVD Lungs- faint rhonchi bilateral bases, no wheezing good air entry bilaterally Heart- normal rate, regular rhythm; no murmurs Abdomen- normal bowel sounds, nondistended, soft, nontender Extremities- mild bipedal edema, no calf tenderness Neuro- alert, oriented x 3; no gross focal neurologic deficits Skin- warm & dry Results & Data Vital Signs (Past 12 Hours) Vital Signs Temp Pulse Pulse Resp BP Pulse Ox 05/27/19 08:52 109 H 18 97 05/27/19 08:00 99 H 05/27/19 07:07 36.5 C 91 H 19 156/86 H 97 05/27/19 03:46 100 H 18 98 05/27/19 03:41 36.6 C 95 H 19 134/87 96 05/27/19 00:42 36.9 C 103 H 18 139/81 94
--- NOTE | 2019-05-27 11:58 | Discharge Summary ---
Date of Service May 27, 2019 Admission HPI Per Admitting Provider 58-year-old male with a past medical history of reactive airway disease, eosinophilic reactive airway disease, hypothyroid, hyperlipidemia, and diverticulitis who presents the emergency room with cough and wheezing that he says has been waxing and waning since February. Today he got so acutely short of breath and he had to come to the emergency room. This is his fifth episode of reactive airway disease exacerbation since February and he has been on multiple inhalers and antibiotics, but still relapses. He was given doxycycline, Solu-Medrol, nebulizers in the emergency room, but he does not feel well enough to leave. And he does have an audible wheeze when you talk to him. 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 Admission Exam Per Admitting Provider Gen-AAO x 3, NAD, Afebrile, pleasant Head-NCAT, EOMI, PERRLA, Anicteric Sclera, No Posterior Pharyngeal Erythema Neck-Supple, No JVD, No Thyromegaly, No Masses, No LAD, No Bruits Lungs-Tight B/L Wheezing, No Crepitus, No Rales or Rhonchi Chest-No S4, +S1, +S2, No S3, No Murmurs, No Rubs, No Gallops, No Ectopy Abdomen-Soft, Bowel Sounds Present, Non Tender, Non Distended, No Hepatomegaly, No Splenomegaly, No Palpable Masses, No Rebound, No Rigidity, No Guarding Musculoskeletal-Full Range of Motion Bilaterally, No CVAT Extremities-No Cyanosis, No Clubbing, No Edema Nuero-Cranial Nerves II-XII grossly intact, Motor WNL, DTRs WNL, Strength WNL, Non Focal Psych-Normal Mood Principal Diagnosis POSSIBLE PNEUMONIA WITH SEVERE HYPERACTIVE AIRWAYS DISEASE, UNDERLYING UNDIAGNOSED ASTHMA Discharge Exam General- oriented x 3, not in distress, speaks in sentences with no effort or accessory muscle use Eyes- anicteric Neck- no JVD Lungs- faint rhonchi bilateral bases, no wheezing good air entry bilaterally Heart- normal rate, regular rhythm; no murmurs Abdomen- normal bowel sounds, nondistended, soft, nontender Extremities- mild bipedal edema, no calf tenderness Neuro- alert, oriented x 3; no gross focal neurologic deficits Skin- warm & dry Discharge Data Allergies Allergy/AdvReac Type Severity Reaction Status Date / Time Gadolinium-Containing Allergy Intermediate HIVES Verified 05/14/19 12:20 Contrast Medi Consultations 05/17/19 16:43 ED Decision to Admit Stat 05/17/19 18:48 Consult Pulmonology Routine Procedures Performed Operation Date: 05/19/19 09:00 Actual Procedures p Bronchoscopy(Bilateral) - Ajay Sinclair MD PREOPERATIVE DIAGNOSIS: Eosinophilia with wheezing/pneumonia POSTOPERATIVE DIAGNOSIS: Eosinophilia with thick secretions/pneumonia PROCEDURE PERFORMED: Flexible fiberoptic bronchoscopy with bronchoalveolar lavage COMPLICATIONS: None. INDICATION: As above PROCEDURE: After obtaining an informed consent, the patient was brought to the Bronchoscopy Suite. The patient had appropriate oxygen, blood pressure, heart rate, and respiratory rate monitoring applied and monitored continuously throughout the procedure. Supplemental oxygen via nasal cannula as per nursing records was applied to the nasopharynx with adequate saturations achieved. Topical anesthesia with nebulized 1% lidocaine was achieved. Subsequent to this, the patient was premedicated with 8 mg of midazolam and 175 Mcg of fentanyl. Upper Airway: The oropharynx and larynx were well visualized and showed candidiasis in the posterior part of the tongue and the pharynx. There was normal vocal cord motion without masses or lesions. Additional topical anesthesia with 1% lidocaine was applied to the trachea and nellie. The trachea appeared normal.The bronchoscope was then advanced through the nellie, which was sharp. The scope was then advanced into the right main stem and each segment, subsegement in the right upper lobe, right middle lobe and right lower lobe were visualized. There was copious amounts of yellowish-cuevas thick secretions noted which were suctioned out. There were no other findings including evidence of mass, anatomic distortions, or hemorrhage. The bronchoscope was subsequently withdrawn and advanced into the left mainstem. Again, each segment and subsegment was well visualized. No specific masses or other lesions were identified throughout the tracheobronchial tree on the left. There was copious amounts of yellowish-cuevas thick secretions noted which were suctioned out. The bronchoscope was then wedged in the right middle lobe followed by right upper lobe and bronchoalveolar lavage samples were obtained. 120 ml of saline was instilled and 60 ml of fluid was aspirated back.The bronchoscope was withdrawn and the area was suctioned clear. The bronchoscope was then withdrawn to the mainstem. The area was suctioned clear. The bronchoscope was then withdrawn. The patient tolerated the procedure well without evidence of desaturation or complications. Bronchoalveolar lavage samples were sent for cell count, Gram stain and bacterial culture, AFB culture and smear, fungal culture and smear and cytology. Recommendations: Continue with antibiotics We will add fluconazole for oral pharyngeal candidiasis Add Mucomyst for thick secretions noted in the airway Follow-up culture, cell count with differential and cytology. Ordered Studies XR chest 1V portable CLINICAL HISTORY: 58 years-old Male presenting with Dyspnea. TECHNIQUE: Portable upright AP view of the chest was obtained. COMPARISON: 05/14/2019. FINDINGS: Cardiomediastinal silhouette normal. No focal opacity. No large effusion or pneumothorax. Degenerative changes of the thoracic spine. Upper abdomen normal. IMPRESSION: 1. No acute cardiopulmonary disease. Hospital Course (1) Reactive airway disease: (1) Persistent cough: Possible bacterial pneumonia in the setting of sever hyperreactive airways with underlying undiagnosed asthma - patient had episodes of severe cough with deep inspiration and exertion while admitted improved with Levalbulterol/Ipratropium with Lidocaine Nebs - Pulmonary consulted- Dr. Tristan iSnclair from [facility] Status post bronchoscopy 05/19/2019: oral candidiasis appreciated on the posterior tongue and pharynx along with thick grayish yellow secretions. per Dr. Sinclair: Bronchoalveolar lavage: Bronchoalveolar lavage: normal jessica, Culture growing Jenny albicans which is normal jessica in the lungs also given the patient had oral candidiasis. - Cytology of RUL BAL showing atypical squamous cells likely sec to underlying inflammation. Patient is low risk for lung cancer given he has only 2 pack year smoking history quit > 20 years ago. No other exposure to chemicals. Case discussed with pathologist Dr Rose. Total IgE: 36, Sputum for ova, parasites: Negative, Stool for ova and parasites: Negative. IgE and IgG specific to Aspergillus, ANCA, Coccidioides antibody, strongyloides Ab: All negative -- patient completed IV Ceftriaxone and Doxycycline given Nebs, high dose IV Solumedrol cough suppressants given including Robitussin with codeine, Tessalon pearls, Benadryl and Gabapentin -- patient gradually improved while admitted coughing has significantly improved cleared for discharge by Pulmonary Service -- discharge plan: Prednisone taper 40mg x 5 days, 20 mg x 5 days, 10mg x 5 days then stop Symbicort BID levalbulterol/ipratropium TID, and q4h PRN, Neb machinefor home use arranged Gabapentin daily Tessalon pearls TID *patient declines Robitussin with codeine and Benadryl -- ff up with PCP next week ff up with [facility] in 2 weeks (2) Oropharyngeal candidiasis Edward-pharyngeal candidiasis likely sec to use of ICS inhaler which was started 2 weeks ago. Continue fluconazole to complete 2 weeks (6 more days) advised rinsing of mouth after use of Symbicort (3) Hypertension BP noted to be as high as systolic 170s Likely secondary to high-dose steroids, stress Amlodipine 10 mg p.o. daily given Blood pressure improving -- as patient is now being transitioned to Prednisone, anticipate improvement of hypertension will maintain on Amlodipine 5mg po daily, BP check on ff up with PCP next week, wean off accordingly (4) Eosinophilia per Pulmonary: Patient with persistent dry cough associated with wheezing and peripheral eosinophilia with absolute neutrophil count greater than 1500 Differential diagnosis includes but not limited to hypereosinophilic syndromes Total IgE: 36, Sputum for ova, parasites: Negative, Stool for ova and parasites: Negative. IgE and IgG specific to Aspergillus, ANCA, Coccidioides antibody, strongyloides Ab: All negative Patient denies any personal history of asthma but there is family history of asthma. Patient denies any recent travel history. No exposure to Hay or poultry. -- ff up with Pulmonary Clinic in 2 weeks Disposition d/c home ff up with PCP in 1 week (scheduling office will call patient, they are closed today) ff up with Pulm Clinic as noted above Total Time Total Time Spent Total Time Spent (In Minutes): 80 Discharge Plan Discharge Items Patient Disposition: Home - Self-Care Reason For Visit: ASTHMA EXACERBATION *ICU 105- Discharge Diagnosis: POSSIBLE PNEUMONIA WITH SEVERE HYPERREACTIVE AIRWAYS, POSSIBLE UNDERLYING ASTHMA Condition on Discharge: Good Activity: As commented below Activity Comment: NO HEAVY EXERTION, INCREASE ACTIVITY GRADUALLY TOLERATED Lifting: Wait until after follow-up appointment Exercise/Sports: Wait until after follow-up appointment Driving/Machine Use: NO DRIVING UNTIL ALLOWED BY PRIMARY CARE PHYSICIAN Non-emergency contact: Primary Care Provider and Technical Service Engineer Call non-emergency contact if: you have any medication questions, your symptoms worsen and you have a fever Follow-up/Referrals: Agustín Hill MD [Physician] - (IN 2 WEEKS) Terrance Sagastume MD [Primary Care Provider] - 05/29/19 9:45 am (IN 1 WEEK, THE CLINIC WILL BE CALLING YOU FOR AN APPOINTMENT) Diet: Heart Healthy Addtl Attending Provider Instructions: PLEASE REVIEW YOUR NEW MEDICATION LIST AND FOLLOW INSTRUCTIONS CAREFULLY. CALL PRIMARY CARE PHYSICIAN/SPEAKING UNIT ASSEMBLER OR RETURN TO THE ER IMMEDIATELY IF WITH RECURRENCE OR WORSENING OF SYMPTOMS. THE PRIMARY CARE PHYSICIAN CLINIC WILL BE CALLING SOON YOU FOR AN APPOINTMENT WITH DR. SAGASTUME NEXT WEEK. PLEASE CALL DR. HILL'S OFFICE (SPEAKING UNIT ASSEMBLER) FOR A HOSPITAL FOLLOW UP VISIT IN 1 WEEK. Pending Studies at Discharge: No Stand-Alone Forms: [facility] urSelf, Smoking Cessation Medications and DC Order Prescriptions: New fluconazole 100 mg Tablet 100 mg PO QAM 6 Days Qty: 6 RF: 0 ipratropium bromide 0.02 % Solution 0.5 mg inhalation TID 14 Days Qty: 105 RF: 2 levalbuterol HCl 1.25 mg/0.5 mL Solution For Nebulization 1.25 mg inhalation TID 14 Days Qty: 50 RF: 2 amlodipine [Norvasc] 5 mg Tablet 5 mg PO QAM 14 Days Qty: 14 RF: 2 benzonatate [Tessalon Perles] 100 mg Capsule 200 mg PO TID 14 Days Qty: 84 RF: 1 gabapentin 300 mg Capsule 300 mg PO DAILY 14 Days Qty: 14 RF: 1 prednisone 10 mg tablet 10 mg PO UD Qty: 35 RF: 0 Continued levothyroxine [Synthroid] 125 mcg Tablet 125 mcg PO DAILY Qty: 34 RF: 0 atorvastatin 10 mg tablet 10 mg PO DAILY RF: 0 pantoprazole 40 mg Tablet,Delayed Release (Dr/Ec) 0 mg PO DAILY RF: 0 Symbicort 80-4.5 mcg/actuation HFA aerosol inhaler 0 puffs INH BID RF: 0 Discontinued Combivent Respimat 20-100 mcg/actuation mist 0 puff INHALATION QID RF: 0 albuterol sulfate [Ventolin HFA] 90 mcg/actuation HFA aerosol inhaler 0 puffs INH Q6H PRN (Reason: shortness of breath or wheezing) RF: 0 Discharge Orders: Discharge Order (Routine); Ordered 05/27/19 Ordered By: Kurtis Duvall Admission Data Admit Date/Time: 05/17/19 16:55 Attending Provider: Kurtis Duvall Admit Provider: Enrique Ernandez Primary Care Provider: Terrance Sagastume Other Providers: Enrique Ernandez ; Agustín Hill Other Interventions: Discharge Summary Assessment (RN) Last Done: 05/27/19 11:58 DC Date/Time DO NOT enter until pt leaves facility: 05/27/19 13:40
[2019-05-27] MEDS ORDERED: AMLODIPINE BESYLATE 5 MG TAB PO SCH (12:00)
[2019-05-27] MEDS ORDERED: IPRATROPIUM BROMIDE NEB SOLN 0.02% 2.5 ML VIAL INH SCH (13:00)
[2019-05-27] MEDS ORDERED: LEVALBUTEROL 1.25MG/0.5ML NEB INH SCH (13:00)
[2019-05-28] MEDS ORDERED: AMLODIPINE BESYLATE 5 MG TAB PO SCH (09:00)
== END 2019-05-27 13:40 | disposition home or self-care (01) | DRG 196 ==
LOC: ED 13:12 → 2W 16:55 → SUATTDRO 16:55 → 2W 18:14 → 2S 05-20 13:41

== ENCOUNTER 2024-11-17 19:51 | Inpatient (IN) ==
--- NOTE | 2024-11-17 20:03 | Emergency Department Note ---
History of Present Illness General Chief complaint: Shortness of Breath/Dyspnea Stated complaint: SOB Time Seen by Provider: 11/17/24 19:57 History of Present Illness This is a 64-year-old male that presents to the emergency department via private vehicle with complaints of "shortness of breath". The patient notes history of asthma. The patient states that this past Saturday he began with shortness of breath. There is a cough but it is nonproductive. His symptoms worsened today. He notes O2 sat at home was 63%. No chest pain. He notes history of ED visits for similar but never to this degree. No history of PE. He notes allergies to gadolinium contrast but not to iodinated contrast. No fever. No other infectious symptoms. Home Medications Medication Instructions Recorded Confirmed Type albuterol sulfate 2.5 mg/3 mL mg inhalation TID 11/17/24 History (0.083 %) solution for nebulization albuterol sulfate 90 mcg/actuation 2 puff inhalation QID PRN Wheezing 11/17/24 11/17/24 History aerosol inhaler atorvastatin 20 mg tablet 20 mg PO DAILY 11/17/24 11/17/24 History epinephrine 0.3 mg/0.3 mL 0.3 mg IM Q4H PRN Anaphylaxis 11/17/24 11/17/24 History injection, auto-injector fluticasone furoate 200 1 inh inhalation DAILY 11/17/24 11/17/24 History mcg-vilanterol 25 mcg/dose inhalation powder fluticasone propionate 50 1 spray intranasal DAILY 11/17/24 11/17/24 History mcg/actuation nasal spray,suspension ipratropium 0.5 mg-albuterol 3 mg 3 ml inhalation 6XD 11/17/24 11/17/24 History (2.5 mg base)/3 mL nebulization soln levocetirizine 5 mg tablet 5 mg PO PM 11/17/24 11/17/24 History levothyroxine 112 mcg tablet 112 mcg PO DAILY 11/17/24 11/17/24 History mepolizumab 100 mg/mL subcutaneous 3 subcut 11/17/24 History auto-injector mepolizumab 100 mg/mL subcutaneous mg subcut 11/17/24 History auto-injector montelukast 10 mg tablet 10 mg PO HS 11/17/24 11/17/24 History tamsulosin 0.4 mg capsule 0.4 mg PO DAILY 11/17/24 11/17/24 History Allergies Allergy/AdvReac Type Severity Reaction Status Date / Time Gadolinium-Containing Allergy Intermediate HIVES Verified 11/04/21 19:46 Contrast Medi Past Med/Surg History Problem List (Updated 11/18/24 @ 00:03 by Erasto Thacker PA-C) Asthma with exacerbation (Acute) Cough (Acute) Dyspnea (Acute) Acute hypoxic respiratory failure (Acute) Prediabetes Hypothyroidism Upper airway cough syndrome Chronic cough Lumbar paraspinal muscle spasm Respiratory distress (Acute) Medical History Prediabetes Severe persistent asthma Obesity (BMI 30.0-34.9) Acute bronchitis Hyperlipidemia Hypothyroidism Acute diverticulitis Social History Smoking Status: Never smoker Tobacco Type: Cigarettes Second Hand Exposure: No; Do You Dip or Chew Tobacco: No; Hx Alcohol Use: Yes Hx Substance Use: No Preferred Language: Omani Communication Ability: Effective Staff Developer Required: No Beliefs That Will Affect Care: None marital status: Current Living Situation: Spouse Feels Safe at Home: Yes Assistive Devices: None Review of Systems A total of 10 systems reviewed and were otherwise negative Physical Exam Vital Signs Vital Signs - 24 hr 11/17/24 19:53 11/17/24 20:08 11/17/24 20:08 Temperature 36.7 C Temperature Source Temporal Artery Scan Pulse Rate 91 H Pulse Rate [Apical] Pulse Rhythm Respiratory Rate 22 Respiratory Effort / Characteristics Short of Breath Respiratory Depth Normal Shallow Respiratory Pattern Regular Blood Pressure 155/89 H Blood Pressure [Left Arm] Blood Pressure Mean 111 Blood Pressure Mean [Left Arm] Blood Pressure Position [Left Arm] Pulse Oximetry 91 88 L Oxygen Delivery Method Room Air Room Air Room Air Oxygen Flow Rate Sepsis Recent Fever Within 48 Hours No Sepsis New/Unexplained Change in Mental Status N/A Sepsis Action Taken by Nursing No Action Required Oxygen Flow Rate - Titration Pulse Oximetry Post Tiitration 11/17/24 20:08 11/17/24 20:08 11/17/24 20:11 Temperature Temperature Source Pulse Rate Pulse Rate [Apical] 83 Pulse Rhythm Respiratory Rate 22 Respiratory Effort / Characteristics Labored Respiratory Depth Respiratory Pattern Blood Pressure Blood Pressure [Left Arm] 174/94 H Blood Pressure Mean Blood Pressure Mean [Left Arm] 120 Blood Pressure Position [Left Arm] Sitting Pulse Oximetry 88 L 96 Oxygen Delivery Method Room Air Nebulizer Oxygen Flow Rate Sepsis Recent Fever Within 48 Hours Sepsis New/Unexplained Change in Mental Status Sepsis Action Taken by Nursing Oxygen Flow Rate - Titration Pulse Oximetry Post Tiitration 11/17/24 20:13 11/17/24 21:18 11/17/24 21:22 Temperature Temperature Source Pulse Rate 85 96 H Pulse Rate [Apical] Pulse Rhythm Regular Respiratory Rate 21 Respiratory Effort / Characteristics Respiratory Depth Respiratory Pattern Blood Pressure Blood Pressure [Left Arm] Blood Pressure Mean Blood Pressure Mean [Left Arm] Blood Pressure Position [Left Arm] Pulse Oximetry 87 L 92 Oxygen Delivery Method Room Air Nasal Cannula Oxygen Flow Rate 2 Sepsis Recent Fever Within 48 Hours Sepsis New/Unexplained Change in Mental Status Sepsis Action Taken by Nursing Oxygen Flow Rate - Titration 2 Pulse Oximetry Post Tiitration 90 11/17/24 22:00 11/17/24 22:38 Temperature Temperature Source Pulse Rate Pulse Rate [Apical] 81 88 Pulse Rhythm Respiratory Rate 19 19 Respiratory Effort / Characteristics Respiratory Depth Respiratory Pattern Blood Pressure Blood Pressure [Left Arm] 134/82 Blood Pressure Mean Blood Pressure Mean [Left Arm] 99 Blood Pressure Position [Left Arm] Pulse Oximetry 93 93 Oxygen Delivery Method Nasal Cannula Nasal Cannula Oxygen Flow Rate 2 3 Sepsis Recent Fever Within 48 Hours Sepsis New/Unexplained Change in Mental Status Sepsis Action Taken by Nursing Oxygen Flow Rate - Titration Pulse Oximetry Post Tiitration VITAL SIGNS - Vital signs and nursing notes were reviewed. Hypoxic at 88% during my exam and tachypneic. GENERAL -64-year-old male appearing his stated age who is exhibiting mildmoderate respiratory distress. Communicates but not in full sentences and answers questions appropriately. SKIN - Without rashes. No meningeal or petechial rash. HEAD - NC/AT. EYES - PERRL with EOMI bilaterally. Sclera anicteric. EARS - No deformities of external structures noted on gross examination bilaterally. NOSE - Midline and without cyanosis. No epistaxis or purulent drainage noted. MOUTH/OROPHARYNX - Without perioral cyanosis. Buccal mucosa pink and moist and without leukoplakia. Tongue midline with equal elevation of palate bilaterally. No tonsillar hypertrophy, erythema, or exudates noted. Good dentition noted. No drooling, stridor, trismus or tripoding. There is audible wheezing noted. NECK - Neck with FROM. Supple to palpation. No lymphadenopathy noted. No nuchal rigidity. LUNGS -there is mild accessory muscle use and there is bilateral wheezing noted. CARDIAC - RRR ABDOMEN - Abdominal contour normal without pulsations or visible masses. BS normoactive all four quadrants. No tenderness, palpable masses, hepatosplenomegaly, or ascites noted. EXTREMITIES - No clubbing or peripheral cyanosis. +5/5 strength noted in UE/LE bilaterally. NEUROLOGIC - Cranial nerves II through XII grossly intact. PSYCH alert, oriented and pleasant on exam.. Course Administered Medications Discontinued Medications Albuterol (Albut/Ipratrop 3mg/0.5mg Neb 3 Ml Vial) 12 ml NEB ONE ONE; Protocol Stop: 11/17/24 20:00 Last Admin: 11/17/24 20:08 Dose: 12 ml Documented By: KEVIN Clonidine HCl (Clonidine Hcl 0.1 Mg Tab) 0.1 mg PO NOW ONE Stop: 11/17/24 22:15 Last Admin: 11/17/24 22:57 Dose: Not Given Documented By: KEVIN Magnesium Sulfate/Dextrose (Magnesium Sulfate / D5w) 1 gm in 100 mls @ 100 mls/hr IV NOW STA Stop: 11/17/24 21:56 Last Infusion: 11/17/24 22:06 Dose: Infused Documented By: Admin: 11/17/24 21:05 Dose: 100 mls/hr Documented By: KEVIN Ioversol (Optiray 320 100ml) 115 ml IV ONCE ONE Stop: 11/17/24 20:38 Last Admin: 11/17/24 20:37 Dose: 115 ml Documented By: ZAKI Methylprednisolone (Methylprednisolone 125 Mg/2 Ml Vial) 125 mg IV NOW STA Stop: 11/17/24 20:02 Last Admin: 11/17/24 20:08 Dose: 125 mg Documented By: KEVIN Critical Care Time I have personally spent about 35 minutes of critical care time in the direct management of this patient. This includes bedside care, interpretation of diagnostic studies, and testing, discussion with consultants, patient, and family members, and other required patient management activities. This 35 minutes is in excess of all separately billable procedures. Medical Decision Making Laboratory Data 11/17/24 20:08 11/17/24 20:08 Lab Results 11/17/24 11/17/24 11/17/24 Range/Units 20:08 20:15 23:22 WBC 10.60 (4.8-10.8) K/ul RBC 5.03 (4.70-6.10) M/uL Hgb 16.5 (14.0-18.0) g/dl POC Hgb 16.7 (14.0-18.0) g/dl Hct 46.3 (42.0-52.0) % POC Hct 49 (42-52) % MCV 92.0 (80.0-100.0) fL MCH 32.8 (25.0-34.0) pg MCHC 35.6 (32.0-36.0) g/dL RDW Std Deviation 45.6 (36.4-46.3) fL RDW Coeff of Femi 13.4 (11.5-14.5) % Plt Count 338 (130-400) K/uL MPV 10.2 (9.4-12.4) fL Immature Gran % (Auto) 0.3 % Neut % (Auto) 51.3 % Lymph % (Auto) 19.3 % [place] % (Auto) 11.7 % Eos % (Auto) 15.7 % Baso % (Auto) 1.7 % Neut # (Auto) 5.44 (1.40-6.50) K/uL Lymph # (Auto) 2.05 (1.20-3.40) K/uL [place] # (Auto) 1.24 H (0.11-0.59) K/uL Eos # (Auto) 1.66 H (0.00-0.50) K/uL Baso # (Auto) 0.18 (0.00-0.20) K/uL Immature Gran # (Auto) 0.03 (0.01-0.20) K/uL PT 10.7 (9.0-12.0) Seconds INR 1.0 (0.9-1.1) APTT 28 (21-31) Seconds PTT Ratio 1.0 VBG pH 7.33 L 7.39 (7.36-7.41) VBG pCO2 61 H 42 (38-50) mmHg VBG pO2 33 45 mmHg VBG HCO3 32 25 mmol/L VBG O2 Saturation < 60.0 78.6 % VBG Base Excess 4.5 0.3 mEq/L POC Sodium 140 (135-144) mmol/L Sodium 142 (136-145) mmol/L POC Potassium 4.3 (3.3-5.0) mmol/L Potassium 3.8 (3.5-5.1) mmol/L POC Chloride 102 (101-112) mmol/L Chloride 104 (98-107) mmol/L Carbon Dioxide 31 (21-32) mmol/L POC Total CO2 29 (24-31) mmol/L Anion Gap 7 (3-11) POC Anion Gap 14.0 L (16-25) mmol/L POC BUN 10 (7-18) mg/dl BUN 11 (6-23) mg/dl Creatinine 0.90 (0.6-1.4) mg/dl POC Creatinine 1.0 (0.6-1.3) mg/dl Est Cr Clr Drug Dosing 97.7 ml/min eGFR 95.97 BUN/Creatinine Ratio 12.2 (10-20) Glucose 89 (70-99(Fasting)) mg/dl POC Glucose (other) 94 (70-99) mg/dl Calcium 9.8 (8.6-10.3) mg/dl POC Ioniz Calcium Arnold 1.25 (1.12-1.32) mmol/l Magnesium 1.9 (1.7-2.4) mg/dl Total Bilirubin 1.0 (0.2-1.0) mg/dl AST 19 (13-39) U/L ALT 16 (7-52) U/L Alkaline Phosphatase 50 (34-104) U/L Troponin I High Sens 5.0 (0-20) pg/ml B-Natriuretic Peptide 52 (0-100) pg/ml Total Protein 7.0 (6.0-8.3) gm/dl Albumin 4.0 (3.4-5.0) gm/dl Globulin 3.0 (2.5-4.0) gm/dl Albumin/Globulin Ratio 1.3 (0.9-2) Procalcitonin < 0.02 (0-0.5) ng/ml TSH 2.929 (0.300-4.500) uIu/ml Adenovirus (PCR) Not Detected (NotDetected) B. pertussis DNA (PCR) Not Detected (NotDetected) B.parapertussis DNA PCR Not Detected (NotDetected) C. pneumoniae DNA (PCR) Not Detected (NotDetected) Coronavirus OC43 (PCR) Not Detected (NotDetected) Coronavirus HKU1 (PCR) Not Detected (NotDetected) Coronavirus 229E (PCR) Not Detected (NotDetected) SARS-CoV-2 (PCR) Not Detected (NotDetected) Coronavirus NL63 (PCR) Not Detected (NotDetected) Human Metapneumovir PCR Not Detected (NotDetected) Influenza Type A (PCR) Not Detected (NotDetected) Influenza Type B (PCR) Not Detected (NotDetected) M. pneumoniae (PCR) Not Detected (NotDetected) Parainfluenza 1 (PCR) Not Detected (NotDetected) Parainfluenza 2 (PCR) Not Detected (NotDetected) Parainfluenza 3 (PCR) Not Detected (NotDetected) Parainfluenza 4 (PCR) Not Detected (NotDetected) RSV (PCR) Not Detected (NotDetected) Entero/Rhino (PCR) Not Detected (NotDetected) Imaging Data Radiologist's Impression: Chest CTA 11/17/24 19:59 Exam(s): CTA CHEST EXAM: CT Angiography Chest With Intravenous Contrast CLINICAL HISTORY: dyspnea. TECHNIQUE: Axial computed tomographic angiography images of the chest with intravenous contrast. CTDI is 32.38 mGy and DLP is 841.26 mGy-cm. Automated exposure control was utilized for the study. A dose lowering technique was utilized adhering to the principles of ALARA. MIP reconstructed images were created and reviewed. COMPARISON: No relevant prior studies available. FINDINGS: Limitations: There is diffuse respiratory artifact, which degrades image quality throughout the examination. Pulmonary arteries: Accounting for limitations with respiratory artifact, there is no definite evidence for pulmonary embolism. Several distal subsegmental pulmonary artery segments are of limited to nondiagnostic quality. Aorta: No acute findings. No thoracic aortic aneurysm. Lungs: Accounting for respiratory artifact, no definite focal airspace consolidation. There is intermittent opacification of the subsegmental bronchi, primarily involving the inferior aspect of all lung segments bilaterally. Pleural space: Unremarkable. No significant effusion. No pneumothorax. Heart: Unremarkable. No cardiomegaly. No significant pericardial effusion. Bones/joints: No acute fracture. No dislocation. Soft tissues: Unremarkable. Lymph nodes: Unremarkable. No enlarged lymph nodes. IMPRESSION: 1. Accounting for limitations with respiratory artifact, there is no definite evidence for pulmonary embolism. Several distal subsegmental pulmonary artery segments are of limited to nondiagnostic quality. 2. Accounting for respiratory artifact, no definite focal airspace consolidation. There is intermittent opacification of the subsegmental bronchi, primarily involving the inferior aspect of all lung segments bilaterally. This may represent aspiration, inflammatory or infectious bronchitis with endobronchial secretions. No significant postobstructive pneumonitis. Electronically signed by: Zion Camara MD 11/17/24 23:14 PM Chest X-Ray 11/17/24 19:59 Exam(s): XR CXR 1 VIEW EXAM: XR Chest, 1 View CLINICAL HISTORY: dyspnea. TECHNIQUE: Frontal view of the chest. COMPARISON: Portable chest single view 08/19/2023 FINDINGS: Lungs: The lungs are stable in appearance without interval new airspace consolidation. The pulmonary vasculature demonstrates no significant radiographic abnormality. Pleural space: Unremarkable. No pneumothorax. No large pleural effusion. Heart: Unremarkable. No cardiomegaly. Mediastinum: No significant abnormality identified. The trachea is midline. Bones/joints: Unremarkable. No acute fracture. IMPRESSION: No acute cardiopulmonary process or significant alteration from the prior examination. Electronically signed by: Zion Camara MD 11/17/24 22:08 PM [facility] Narrative Patient was seen and evaluated as above in room A10. Review was performed of triage nursing notes and vital signs. I did review pertinent previous visits and patient history. After obtaining a thorough history and physical examination the above work up was performed. Patient presents to us today for evaluation of dyspnea and nonproductive cough. Patient does have bilateral wheezing on examination. There is mild to moderate respiratory distress. Options of care were discussed with the patient. IV access was established labs were drawn. DuoNeb plus IV steroids ordered. He did have some improvement. He underwent chest x-ray which per my interpretation was negative for large infiltrate. No pneumothorax. We did attempt CT angio however the patient could not lay flat. He was returning from CT suite. He did not receive any contrast during that attempt. We did allow the breathing treatment to finish and I also added IV magnesium. He was reevaluated and feeling much better but still not 100%. CT angio was able to be performed of the chest and is as above. No PE. There is no leukocytosis or concerning anemia. Initial VBG revealed pH of 7.33 with a CO2 of 61. No evidence of kidney or liver failure. Troponin and BNP are normal. Procalcitonin undetectable. TSH reveals euthyroid state. Blood culture pending. BioFire panel negative. I do believe that further evaluation and management in the inpatient setting is warranted. Case discussed with the hospitalist service. Please refer to further documentation regarding his stay. GCS: 15 In the evaluation and treatment of this patient the following differential diagnoses were entertained: [place], PE, pneumothorax, pneumonia, bronchitis, COPD, asthma exacerbation, among others. Impression & Plan Acute hypoxic respiratory failure, Dyspnea, Cough, Asthma with exacerbation Discharge Plan Visit Data Chief Complaint: Shortness of Breath/Dyspnea Stated Complaint: SOB ED Provider: Stefany Mcbride ED Midlevel Provider: Erasto Thacker Discharge Problem: Acute hypoxic respiratory failure, Dyspnea, Cough, Asthma with exacerbation Patient Disposition: Admitted As Inpatient Condition: Fair Forms Stand Alone Forms: My [facility] Prescriptions Prescriptions: No Action albuterol sulfate 2.5 mg /3 mL (0.083 %) solution for nebulization inhalation TID Rx Instructions: morning, noon and evening montelukast 10 mg Tablet 10 mg PO HS mepolizumab 100 mg/mL Auto-Injector 3 SUBCUT Rx Instructions: 3ml under the skin every 4 weeks fluticasone furoate-vilanterol 200-25 mcg/dose Blister With Device 1 inh INHALATION DAILY albuterol sulfate 90 mcg/actuation Hfa Aerosol Inhaler 2 puff INHALATION QID PRN (Reason: Wheezing) levocetirizine 5 mg Tablet 5 mg PO PM levothyroxine 112 mcg Tablet 112 mcg PO DAILY fluticasone propionate 50 mcg/actuation [place],Suspension 1 spray INTRANASAL DAILY Rx Instructions: administer into each nostril mepolizumab 100 mg/mL Auto-Injector SUBCUT Rx Instructions: 1ml under the skin every 4 weeks epinephrine 0.3 mg/0.3 mL Auto-Injector 0.3 mg IM Q4H PRN (Reason: Anaphylaxis) Rx Instructions: use only for severe reaction. atorvastatin 20 mg Tablet 20 mg PO DAILY ipratropium-albuterol 0.5 mg-3 mg(2.5 mg base)/3 mL Solution For Nebulization 3 ml INHALATION 6XD tamsulosin 0.4 mg Capsule 0.4 mg PO DAILY Referrals Referrals: Gatito Frazier Jr, MD [Primary Care Provider] -
[2024-11-17] MEDS: ALBUT/IPRATROP 3MG/0.5MG NEB 3 ML VIAL NEB ONE (20:08)
[2024-11-17] MEDS: methylPREDNISolone 125 MG/2 ML VIAL IV STA (20:08)
[2024-11-17 20:22] LABS: Base Excess VBG 4.5 mEq/L; HCO3 VBG 32 mmol/L; Oxygen Saturation VBG < 60.0 %; PCO2 VBG 61 mmHg (38-50); PO2 VBG 33 mmHg; pH VBG 7.33 (7.36-7.41)
[2024-11-17 20:27] LABS: iSTAT Hemoglobin 16.7 g/dl (14.0-18.0); iSTAT Ionized Calcium 1.25 mmol/l (1.12-1.32); iSTAT Potassium 4.3 mmol/L (3.3-5.0)
[2024-11-17] MEDS: OPTIRAY 320 100ml IV ONE (20:37)
[2024-11-17 20:45] LABS: Albumin Globulin Ratio 1.3 (0.9-2); BUN Creatinine Ratio 12.2 (10-20); Calcium 9.8 mg/dl (8.6-10.3); Creatinine Clr Calc Pharmacy 97.7 ml/min; Magnesium 1.9 mg/dl (1.7-2.4); Potassium 3.8 mmol/L (3.5-5.1)
[2024-11-17 20:51] LABS: Basophils # (auto) 0.18 K/uL (0.00-0.20); Basophils % (auto) 1.7 %; Eosinophils # (auto) 1.66 K/uL (0.00-0.50); Eosinophils % (auto) 15.7 %; Hematocrit (blood only) 46.3 % (42.0-52.0); Hemoglobin 16.5 g/dl (14.0-18.0); Immature Granulocytes # (auto) 0.03 K/uL (0.01-0.20); Immature Granulocytes % (auto) 0.3 %; Lymphocytes # (auto) 2.05 K/uL (1.20-3.40); Lymphocytes % (auto) 19.3 %; Mean Corpuscular Hemoglobin 32.8 pg (25.0-34.0); Mean Corpuscular Hgb Conc 35.6 g/dL (32.0-36.0); Mean Platelet Volume 10.2 fL (9.4-12.4); Monocytes # (auto) 1.24 K/uL (0.11-0.59); Monocytes % (auto) 11.7 %; Neutrophils # (auto) 5.44 K/uL (1.40-6.50); Neutrophils % (auto) 51.3 %; Platelet Count 338 K/uL (130-400); RDW Coefficient of Variation 13.4 % (11.5-14.5); RDW Standard Deviation 45.6 fL (36.4-46.3); Red Blood Count 5.03 M/uL (4.70-6.10)
[2024-11-17 21:00] LABS: Partial Thromboplastin Time 28 Seconds (21-31); Prothrombin Time 10.7 Seconds (9.0-12.0)
[2024-11-17 21:02] LABS: Thyroid Stimulating Hormone 2.929 uIu/ml (0.300-4.500)
[2024-11-17] MEDS: MAGNESIUM SULFATE / D5W 1 GM/100 ML BAG IV STA (21:05)
[2024-11-17 21:11] LABS: Adenovirus PCR Not Detected (NotDetected); Bordetella parapertussis PCR Not Detected (NotDetected); Bordetella pertussis PCR Not Detected (NotDetected); Chlamydia pneumoniae PCR Not Detected (NotDetected); Coronavirus 229E PCR Not Detected (NotDetected); Coronavirus CoV-2 (COVID19)PCR Not Detected (NotDetected); Coronavirus HKU1 PCR Not Detected (NotDetected); Coronavirus NL63 PCR Not Detected (NotDetected); Coronavirus OC43PCR Not Detected (NotDetected); Human Metapneumovirus PCR Not Detected (NotDetected); Influenza A PCR Not Detected (NotDetected); Influenza B PCR Not Detected (NotDetected); Mycoplasma pneumoniae PCR Not Detected (NotDetected); Parainfluenza Virus 1 PCR Not Detected (NotDetected); Parainfluenza Virus 2 PCR Not Detected (NotDetected); Parainfluenza Virus 3 PCR Not Detected (NotDetected); Parainfluenza Virus 4 PCR Not Detected (NotDetected); Respiratory Syncytial VirusPCR Not Detected (NotDetected); Rhinovirus/Enterovirus PCR Not Detected (NotDetected)
--- NOTE | 2024-11-17 22:10 | XRay Report ---
Exam(s): XR CXR 1 VIEW EXAM: XR Chest, 1 View CLINICAL HISTORY: dyspnea. TECHNIQUE: Frontal view of the chest. COMPARISON: Portable chest single view 08/19/2023 FINDINGS: Lungs: The lungs are stable in appearance without interval new airspace consolidation. The pulmonary vasculature demonstrates no significant radiographic abnormality. Pleural space: Unremarkable. No pneumothorax. No large pleural effusion. Heart: Unremarkable. No cardiomegaly. Mediastinum: No significant abnormality identified. The trachea is midline. Bones/joints: Unremarkable. No acute fracture. IMPRESSION: No acute cardiopulmonary process or significant alteration from the prior examination. Electronically signed by: Zion Camara MD 11/17/24 22:08 PM
--- NOTE | 2024-11-17 22:29 | History & Physical Report ---
Date of Service November 17, 2024 Assessment & Plan (1) Acute hypoxic respiratory failure: Plan: Assessment and plan below following discussion of case with ED provider and reviewing patient history/pertinent normal/abnormal diagnostic test results. Acute hypoxemic, hypercapnic respiratory failure Secondary to asthma exacerbation hyperlipidemia, on statin Rx bicuspid aortic valve PVD (hx TAA as per records, [place] [facility] [place] prediabetes, hemoglobin A1c of 5.6 last year hypothyroidism, euthyroid as of today's TSH MASLD/hemochromatosis past tobacco abuse Admit to med/tele Supplemental O2 Recheck VBG Solu-Medrol, nebs RTC No indication for antibiotics right now. Pulmonology consult if without improvement DVT prophylaxis. Lovenox subcu Full code Text document was generated using Addy voice recognition software. It may contain grammatical or spelling errors. Kindly contact undersigned for clarification of any documentation item in question. History of Present Illness Chief Complaint: Shortness of breath, low O2 Primary Care Provider: Gatito Frazier Jr, MD History obtained from patient, family, and records. Medical history significant for bronchial asthma, hyperlipidemia, coronary artery calcification as per records, bicuspid aortic valve, PVD, prediabetes, hypothyroidism, MASLD, hemochromatosis, BPH, peripheral eosinophilia as per records, past tobacco abuse (only for 2 months as per patient). Last confinement February 2023 for asthma exacerbation. 3 days history of cough symptoms productive of clear sputum with worsening SOB. No chest pain. Not sure about sick contacts. Denies aspiration, fever, chills, some fluid retention. O2 sats on pulse ox 60s as per patient. Outpatient steroid course prescribed by security director last month for breathing attack (second steroid course this year). Lowest O2 sats of 80s documented at the ER. Solu-Medrol, and neb treatment administered at the ER. Patient currently feeling better. Medical History as above Surgical History : Cataract surgeries, hypospadia surgery Family History : Heart disease, stroke, thyroid disease Personal/Social history : Past tobacco abuse (only 2 months as per patient), no EtOH intake, office work Allergies Allergy/AdvReac Type Severity Reaction Status Date / Time Gadolinium-Containing Allergy Intermediate HIVES Verified 11/04/21 19:46 Contrast Medi Home Medications Medication Instructions Recorded Confirmed Type albuterol sulfate 2.5 mg/3 mL mg inhalation TID 11/17/24 History (0.083 %) solution for nebulization albuterol sulfate 90 mcg/actuation 2 puff inhalation QID PRN Wheezing 11/17/24 11/17/24 History aerosol inhaler atorvastatin 20 mg tablet 20 mg PO DAILY 11/17/24 11/17/24 History epinephrine 0.3 mg/0.3 mL 0.3 mg IM Q4H PRN Anaphylaxis 11/17/24 11/17/24 History injection, auto-injector fluticasone furoate 200 1 inh inhalation DAILY 11/17/24 11/17/24 History mcg-vilanterol 25 mcg/dose inhalation powder fluticasone propionate 50 1 spray intranasal DAILY 11/17/24 11/17/24 History mcg/actuation nasal spray,suspension ipratropium 0.5 mg-albuterol 3 mg 3 ml inhalation 6XD 11/17/24 11/17/24 History (2.5 mg base)/3 mL nebulization soln levocetirizine 5 mg tablet 5 mg PO PM 11/17/24 11/17/24 History levothyroxine 112 mcg tablet 112 mcg PO DAILY 11/17/24 11/17/24 History mepolizumab 100 mg/mL subcutaneous 3 subcut 11/17/24 History auto-injector mepolizumab 100 mg/mL subcutaneous mg subcut 11/17/24 History auto-injector montelukast 10 mg tablet 10 mg PO HS 11/17/24 11/17/24 History tamsulosin 0.4 mg capsule 0.4 mg PO DAILY 11/17/24 11/17/24 History Past Med/Surg History Problem List (Updated 11/18/24 @ 00:03 by Erasto Thacker PA-C) Asthma with exacerbation (Acute) Cough (Acute) Dyspnea (Acute) Acute hypoxic respiratory failure (Acute) Prediabetes Hypothyroidism Upper airway cough syndrome Chronic cough Lumbar paraspinal muscle spasm Respiratory distress (Acute) Medical History Prediabetes Severe persistent asthma Obesity (BMI 30.0-34.9) Acute bronchitis Hyperlipidemia Hypothyroidism Acute diverticulitis Social History Smoking Status: Never smoker Tobacco Type: Cigarettes Second Hand Exposure: No; Do You Dip or Chew Tobacco: No; Hx Alcohol Use: No Hx Substance Use: No Preferred Language: Maltese Communication Ability: Effective Operating Room Registered Nurse Required: No Beliefs That Will Affect Care: None marital status: Current Living Situation: Spouse Feels Safe at Home: Yes Assistive Devices: Glasses Review of Systems Review of Systems: As per HPI, all other systems reviewed and negative Physical Exam Physical Exam: GENERAL: Slightly anxious, tremulous, pleasant, no respiratory distress SKIN: Normal color, warm HEENT: [place] palpebral conjunctivae, no ptosis, dry buccal mucosa, nasal cannula in place NECK : Supple, no tenderness CHEST : Decreased breath sounds, expiratory wheezes, no tenderness HEART : RRR, no obvious murmurs ABDOMEN: no distention, nontender EXTREMITIES : No LE swelling/tenderness, palpable pulses, no other conspicuous deformities noted NEUROLOGIC : Coherent, no facial asymmetry, hand tremors following breathing treatment, no other gross focality Results & Data Results & Data Vital Signs (Past 12 Hours) Vital Signs Temp Pulse Pulse Resp BP BP Pulse Ox 11/17/24 22:00 81 19 93 11/17/24 21:22 96 H 21 92 11/17/24 21:18 87 L 11/17/24 20:13 85 11/17/24 20:11 96 11/17/24 20:08 88 L 11/17/24 20:08 83 22 174/94 H 11/17/24 20:08 88 L 11/17/24 20:08 11/17/24 19:53 36.7 C 91 H 22 155/89 H 91 O2 Del Method O2 Flow Rate 11/17/24 22:00 Nasal Cannula 2 11/17/24 21:22 Nasal Cannula 2 11/17/24 21:18 Room Air 11/17/24 20:13 11/17/24 20:11 Nebulizer 11/17/24 20:08 Room Air 11/17/24 20:08 11/17/24 20:08 Room Air 11/17/24 20:08 Room Air 11/17/24 19:53 Room Air Laboratory Results Laboratory Results WBC 10.60 K/ul (4.8-10.8) 11/17/24 20:08 RBC 5.03 M/uL (4.70-6.10) 11/17/24 20:08 Hgb 16.5 g/dl (14.0-18.0) 11/17/24 20:08 POC Hgb 16.7 g/dl (14.0-18.0) 11/17/24 20:15 Hct 46.3 % (42.0-52.0) 11/17/24 20:08 POC Hct 49 % (42-52) 11/17/24 20:15 MCV 92.0 fL (80.0-100.0) 11/17/24 20:08 MCH 32.8 pg (25.0-34.0) 11/17/24 20:08 MCHC 35.6 g/dL (32.0-36.0) 11/17/24 20:08 RDW Std Deviation 45.6 fL (36.4-46.3) 11/17/24 20:08 RDW Coeff of Femi 13.4 % (11.5-14.5) 11/17/24 20:08 Plt Count 338 K/uL (130-400) 11/17/24 20:08 MPV 10.2 fL (9.4-12.4) 11/17/24 20:08 Immature Gran % (Auto) 0.3 % 11/17/24 20:08 Neut % (Auto) 51.3 % 11/17/24 20:08 Lymph % (Auto) 19.3 % 11/17/24 20:08 Mcclain % (Auto) 11.7 % 11/17/24 20:08 Eos % (Auto) 15.7 % 11/17/24 20:08 Baso % (Auto) 1.7 % 11/17/24 20:08 Neut # (Auto) 5.44 K/uL (1.40-6.50) 11/17/24 20:08 Lymph # (Auto) 2.05 K/uL (1.20-3.40) 11/17/24 20:08 [place]clain # (Auto) 1.24 K/uL (0.11-0.59) H 11/17/24 20:08 Eos # (Auto) 1.66 K/uL (0.00-0.50) H 11/17/24 20:08 Baso # (Auto) 0.18 K/uL (0.00-0.20) 11/17/24 20:08 Immature Gran # (Auto) 0.03 K/uL (0.01-0.20) 11/17/24 20:08 PT 10.7 Seconds (9.0-12.0) 11/17/24 20:08 INR 1.0 (0.9-1.1) 11/17/24 20:08 APTT 28 Seconds (21-31) 11/17/24 20:08 PTT Ratio 1.0 11/17/24 20:08 VBG pH 7.33 (7.36-7.41) L 11/17/24 20:08 VBG pCO2 61 mmHg (38-50) H 11/17/24 20:08 VBG pO2 33 mmHg 11/17/24 20:08 VBG HCO3 32 mmol/L 11/17/24 20:08 VBG O2 Saturation < 60.0 % 11/17/24 20:08 VBG Base Excess 4.5 mEq/L 11/17/24 20:08 POC Sodium 140 mmol/L (135-144) 11/17/24 20:15 Sodium 142 mmol/L (136-145) 11/17/24 20:08 POC Potassium 4.3 mmol/L (3.3-5.0) 11/17/24 20:15 Potassium 3.8 mmol/L (3.5-5.1) 11/17/24 20:08 POC Chloride 102 mmol/L (101-112) 11/17/24 20:15 Chloride 104 mmol/L (98-107) 11/17/24 20:08 Carbon Dioxide 31 mmol/L (21-32) 11/17/24 20:08 POC Total CO2 29 mmol/L (24-31) 11/17/24 20:15 Anion Gap 7 (3-11) 11/17/24 20:08 POC Anion Gap 14.0 mmol/L (16-25) L 11/17/24 20:15 POC BUN 10 mg/dl (7-18) 11/17/24 20:15 BUN 11 mg/dl (6-23) 11/17/24 20:08 Creatinine 0.90 mg/dl (0.6-1.4) 11/17/24 20:08 POC Creatinine 1.0 mg/dl (0.6-1.3) 11/17/24 20:15 Est Cr Clr Drug Dosing 97.7 ml/min 11/17/24 20:08 eGFR 95.97 11/17/24 20:08 BUN/Creatinine Ratio 12.2 (10-20) 11/17/24 20:08 Glucose 89 mg/dl (70-99(Fasting)) 11/17/24 20:08 POC Glucose (other) 94 mg/dl (70-99) 11/17/24 20:15 Calcium 9.8 mg/dl (8.6-10.3) 11/17/24 20:08 POC Ioniz Calcium Arnold 1.25 mmol/l (1.12-1.32) 11/17/24 20:15 Magnesium 1.9 mg/dl (1.7-2.4) 11/17/24 20:08 Total Bilirubin 1.0 mg/dl (0.2-1.0) 11/17/24 20:08 AST 19 U/L (13-39) 11/17/24 20:08 ALT 16 U/L (7-52) 11/17/24 20:08 Alkaline Phosphatase 50 U/L (34-104) 11/17/24 20:08 Troponin I High Sens 5.0 pg/ml (0-20) 11/17/24 20:08 B-Natriuretic Peptide 52 pg/ml (0-100) 11/17/24 20:08 Total Protein 7.0 gm/dl (6.0-8.3) 11/17/24 20:08 Albumin 4.0 gm/dl (3.4-5.0) 11/17/24 20:08 Globulin 3.0 gm/dl (2.5-4.0) 11/17/24 20:08 Albumin/Globulin Ratio 1.3 (0.9-2) 11/17/24 20:08 Procalcitonin < 0.02 ng/ml (0-0.5) 11/17/24 20:08 TSH 2.929 uIu/ml (0.300-4.500) 11/17/24 20:08 Adenovirus (PCR) Not Detected (NotDetected) 11/17/24 20:08 B. pertussis DNA (PCR) Not Detected (NotDetected) 11/17/24 20:08 B.parapertussis DNA PCR Not Detected (NotDetected) 11/17/24 20:08 C. pneumoniae DNA (PCR) Not Detected (NotDetected) 11/17/24 20:08 Coronavirus OC43 (PCR) Not Detected (NotDetected) 11/17/24 20:08 Coronavirus HKU1 (PCR) Not Detected (NotDetected) 11/17/24 20:08 Coronavirus 229E (PCR) Not Detected (NotDetected) 11/17/24 20:08 SARS-CoV-2 (PCR) Not Detected (NotDetected) 11/17/24 20:08 Coronavirus NL63 (PCR) Not Detected (NotDetected) 11/17/24 20:08 Human Metapneumovir PCR Not Detected (NotDetected) 11/17/24 20:08 Influenza Type A (PCR) Not Detected (NotDetected) 11/17/24 20:08 Influenza Type B (PCR) Not Detected (NotDetected) 11/17/24 20:08 M. pneumoniae (PCR) Not Detected (NotDetected) 11/17/24 20:08 Parainfluenza 1 (PCR) Not Detected (NotDetected) 11/17/24 20:08 Parainfluenza 2 (PCR) Not Detected (NotDetected) 11/17/24 20:08 Parainfluenza 3 (PCR) Not Detected (NotDetected) 11/17/24 20:08 Parainfluenza 4 (PCR) Not Detected (NotDetected) 11/17/24 20:08 RSV (PCR) Not Detected (NotDetected) 11/17/24 20:08 Entero/Rhino (PCR) Not Detected (NotDetected) 11/17/24 20:08 Impressions Chest X-Ray 11/17/24 19:59 Exam(s): XR CXR 1 VIEW EXAM: XR Chest, 1 View CLINICAL HISTORY: dyspnea. TECHNIQUE: Frontal view of the chest. COMPARISON: Portable chest single view 08/19/2023 FINDINGS: Lungs: The lungs are stable in appearance without interval new airspace consolidation. The pulmonary vasculature demonstrates no significant radiographic abnormality. Pleural space: Unremarkable. No pneumothorax. No large pleural effusion. Heart: Unremarkable. No cardiomegaly. Mediastinum: No significant abnormality identified. The trachea is midline. Bones/joints: Unremarkable. No acute fracture. IMPRESSION: No acute cardiopulmonary process or significant alteration from the prior examination. Electronically signed by: Zion Camara MD 11/17/24 22:08 PM Chest CTA 1. Accounting for limitations with respiratory artifact, there is no definite evidence for pulmonary embolism. Several distal subsegmental pulmonary artery segments are of limited to nondiagnostic quality. 2. Accounting for respiratory artifact, no definite focal airspace consolidation. There is intermittent opacification of the subsegmental bronchi, primarily involving the inferior aspect of all lung segments bilaterally. This may represent aspiration, inflammatory or infectious bronchitis with endobronchial secretions. No significant postobstructive pneumonitis. Diagnostic Findings EKG as per my interpretation :Rate 90, NSR, normal axis, T wave abnormalities septal leads,
[2024-11-17] MEDS: cloNIDine HCL 0.1 MG TAB PO ONE (22:56)
[2024-11-17] MEDS ORDERED: PROMETHAZINE 6.25 MG/50.25 ML BAG IV PRN (23:11)
--- NOTE | 2024-11-17 23:15 | CT Scan Report ---
Exam(s): CTA CHEST EXAM: CT Angiography Chest With Intravenous Contrast CLINICAL HISTORY: dyspnea. TECHNIQUE: Axial computed tomographic angiography images of the chest with intravenous contrast. CTDI is 32.38 mGy and DLP is 841.26 mGy-cm. Automated exposure control was utilized for the study. A dose lowering technique was utilized adhering to the principles of ALARA. MIP reconstructed images were created and reviewed. COMPARISON: No relevant prior studies available. FINDINGS: Limitations: There is diffuse respiratory artifact, which degrades image quality throughout the examination. Pulmonary arteries: Accounting for limitations with respiratory artifact, there is no definite evidence for pulmonary embolism. Several distal subsegmental pulmonary artery segments are of limited to nondiagnostic quality. Aorta: No acute findings. No thoracic aortic aneurysm. Lungs: Accounting for respiratory artifact, no definite focal airspace consolidation. There is intermittent opacification of the subsegmental bronchi, primarily involving the inferior aspect of all lung segments bilaterally. Pleural space: Unremarkable. No significant effusion. No pneumothorax. Heart: Unremarkable. No cardiomegaly. No significant pericardial effusion. Bones/joints: No acute fracture. No dislocation. Soft tissues: Unremarkable. Lymph nodes: Unremarkable. No enlarged lymph nodes. IMPRESSION: 1. Accounting for limitations with respiratory artifact, there is no definite evidence for pulmonary embolism. Several distal subsegmental pulmonary artery segments are of limited to nondiagnostic quality. 2. Accounting for respiratory artifact, no definite focal airspace consolidation. There is intermittent opacification of the subsegmental bronchi, primarily involving the inferior aspect of all lung segments bilaterally. This may represent aspiration, inflammatory or infectious bronchitis with endobronchial secretions. No significant postobstructive pneumonitis. Electronically signed by: Zion Camara MD 11/17/24 23:14 PM
[2024-11-17 23:32] LABS: Base Excess VBG 0.3 mEq/L; HCO3 VBG 25 mmol/L; Oxygen Saturation VBG 78.6 %; PCO2 VBG 42 mmHg (38-50); PO2 VBG 45 mmHg; pH VBG 7.39 (7.36-7.41)
[2024-11-18] MEDS: LACTATED RINGER'S 1,000 ML IV ONE (00:35)
[2024-11-18] MEDS: ACETAMINOPHEN 500 MG TAB PO PRN (00:48)
[2024-11-18] MEDS: LEVALBUTEROL 1.25 MG/3 ML NEB NEB SCH ×2 (01:01→14:48)
[2024-11-18] MEDS: IPRATROPIUM BROMIDE NEB SOLN 0.02% 0.5MG/2.5ML VIAL INH SCH ×2 (01:01→14:49)
[2024-11-18] MEDS: oxyCODONE HCL IR 5 MG TAB (IMMEDIATE RELEASE) PO PRN (04:39)
[2024-11-18] MEDS: LEVOTHYROXINE SODIUM 112 MCG TABLET PO SCH (04:40)
[2024-11-18] MEDS: COUGH DROP (SUGAR FREE) LOZ 24 LOZ/1 BOX BUCCAL PRN (06:09)
[2024-11-18 06:35] LABS: Hematocrit (blood only) 43.5 % (42.0-52.0); Hemoglobin 14.9 g/dl (14.0-18.0); Mean Corpuscular Hemoglobin 31.3 pg (25.0-34.0); Mean Corpuscular Hgb Conc 34.3 g/dL (32.0-36.0); Mean Corpuscular Volume 91.4 fL (80.0-100.0); Mean Platelet Volume 10.1 fL (9.4-12.4); Platelet Count 314 K/uL (130-400); RDW Coefficient of Variation 13.6 % (11.5-14.5); RDW Standard Deviation 45.9 fL (36.4-46.3); Red Blood Count 4.76 M/uL (4.70-6.10); White Blood Count 6.03 K/ul (4.8-10.8)
[2024-11-18 06:57] LABS: BUN Creatinine Ratio 12.6 (10-20); Calcium 9.2 mg/dl (8.6-10.3); Potassium 4.1 mmol/L (3.5-5.1)
[2024-11-18 07:03] LABS: Basophils # (auto) 0.01 K/uL (0.00-0.20); Basophils % (auto) 0.2 %; Immature Granulocytes # (auto) 0.03 K/uL (0.01-0.20); Immature Granulocytes % (auto) 0.5 %; Lymphocytes # (auto) 0.37 K/uL (1.20-3.40); Lymphocytes % (auto) 6.1 %; Monocytes # (auto) 0.06 K/uL (0.11-0.59); Neutrophils # (auto) 5.56 K/uL (1.40-6.50); Neutrophils % (auto) 92.2 %
[2024-11-18] MEDS: ENOXAPARIN INJ 40 MG/0.4 ML SYR SQ SCH (08:35)
[2024-11-18] MEDS: ATORVASTATIN 20 MG TAB PO SCH (08:35)
[2024-11-18] MEDS: FLUTICASONE PROPIONATE NA SPR 16 GM BTL SCH (08:35)
[2024-11-18] MEDS: TAMSULOSIN HCL 0.4 MG CAP PO SCH (08:36)
[2024-11-18] MEDS: methylPREDNISolone 40 MG in SYRINGE 0 ML IV SCH ×2 (08:36→14:26)
--- NOTE | 2024-11-18 08:48 | Hospitalist Progress Note ---
Date of Service November 18, 2024 Assessment & Plan (1) Acute hypoxic respiratory failure: Plan: Assessment and plan Acute hypoxemic, hypercapnic respiratory failure Secondary to asthma exacerbation Supplemental O2 Solu-Medrol, nebs RTC Pt follows w/ [facility] pulm. Dr. Jameson , previously followed w/ [facility] pulm. 11/18 Today w/ worsening hypoxia, and resp. distress, on phys. exam significant wheezing Pulmonary medicine (Dr. Sinclair) consulted Records from [facility] reviewed - note from pulm. dated February 2024 Per pulm. pt w/ cough, poss. pna, asthma exacerb., peripheral eosinophilia (which pt has hx of and was previously on biologics) - Increase Solu-Medrol to 40 mg 3 times daily Start the patient on budesonide and formoterol nebulized along with hypertonic saline Continue with montelukast as well as Claritin Azithromycin for 5 days, QTc 438 I will order tryptase level for the patient to make sure patient does not have underlying mast cell disorder given the significant elevation of eosinophils He did stop taking mepolizumab because of issues with cost, this could be rebound eosinophilia after stopping it. Although it is rare but it has been noted. Chronic conditions: hyperlipidemia, on statin Rx bicuspid aortic valve PVD (hx TAA as per records, patient follows with [facility] vascular surgery) prediabetes, hemoglobin A1c of 5.6 last year hypothyroidism, euthyroid as of curent TSH MASLD/hemochromatosis past tobacco abuse DVT prophylaxis. Lovenox subcu Full code Admission and Anticipated Discharge Date Admission Date: November 17, 2024 Subjective Pt seen in follow up of acute hypoxic resp. failure, hx of asthma Contacted by RN that pt in more distress, difficulty breathing, up on 4L of O2 via NC. Immediately went to assess the pt. Pt awake alert, somewhat anxious, on suppl. O2. Able to answer questions in full sentences but with cough and wheezing on phys. exam. Reviewed pt's medications as well. Pt follows w/ pulmonary med. (currently w/ [facility], previously w/ [facility]). Contacted pulmonary medicine (Dr. Sinclair) to evaluate the pt as well and help w/ medical management of this pt. Besides hypoxia, cough, some resp. distress, pt denied any chest pain, abd. pain, n/v, SOSA, diarrhea, urinary symptoms Review of Systems Review of Systems: All systems reviewed & are unremarkable except as noted in Subjective Physical Exam Physical Exam: GENERAL: WD/WN M , Slightly anxious, on suppl. O2 SKIN: Normal color, warm HEENT: [place] palpebral conjunctivae, no ptosis, nasal cannula in place NECK : Supple CHEST : Decreased breath sounds, expiratory wheezes HEART : RRR, no obvious murmurs ABDOMEN: no distention, nontender EXTREMITIES : No LE swelling/tenderness, moves extremities NEUROLOGIC : Coherent, no facial asymmetry, answers appropriately, moves extremities Results & Data Results & Data Vital Signs (Past 12 Hours) Vital Signs Temp Pulse Pulse Pulse Resp BP BP 11/18/24 08:08 36.5 C 95 H 16 117/65 11/18/24 06:58 99 H 20 11/18/24 03:39 36.3 C L 84 18 110/64 11/18/24 01:01 83 18 11/18/24 00:40 84 11/18/24 00:20 11/18/24 00:20 36.7 C 81 20 154/83 H 11/18/24 00:10 79 20 139/77 11/18/24 00:00 81 20 139/77 11/17/24 22:38 88 19 134/82 11/17/24 22:00 81 19 11/17/24 21:22 96 H 21 11/17/24 21:18 Pulse Ox O2 Del Method O2 Flow Rate 11/18/24 08:08 94 Nasal Cannula 2 11/18/24 06:58 97 Nasal Cannula 3 11/18/24 03:39 95 Nasal Cannula 11/18/24 01:01 93 Nasal Cannula 3 11/18/24 00:40 11/18/24 00:20 Nasal Cannula 3 11/18/24 00:20 91 Nasal Cannula 3 11/18/24 00:10 94 Nasal Cannula 3 11/18/24 00:00 94 Nasal Cannula 3 11/17/24 22:38 93 Nasal Cannula 3 11/17/24 22:00 93 Nasal Cannula 2 11/17/24 21:22 92 Nasal Cannula 2 11/17/24 21:18 87 L Room Air Laboratory Results 11/18/24 11/17/24 11/17/24 Range/Units 05:28 23:22 20:15 WBC 6.03 (4.8-10.8) K/ul RBC 4.76 (4.70-6.10) M/uL Hgb 14.9 (14.0-18.0) g/dl POC Hgb 16.7 (14.0-18.0) g/dl Hct 43.5 (42.0-52.0) % POC Hct 49 (42-52) % MCV 91.4 (80.0-100.0) fL MCH 31.3 (25.0-34.0) pg MCHC 34.3 (32.0-36.0) g/dL RDW Std Deviation 45.9 (36.4-46.3) fL RDW Coeff of Femi 13.6 (11.5-14.5) % Plt Count 314 (130-400) K/uL MPV 10.1 (9.4-12.4) fL Immature Gran % (Auto) 0.5 % Neut % (Auto) 92.2 % Lymph % (Auto) 6.1 % [place] % (Auto) 1.0 % Eos % (Auto) 0.0 % Baso % (Auto) 0.2 % Neut # (Auto) 5.56 (1.40-6.50) K/uL Lymph # (Auto) 0.37 L (1.20-3.40) K/uL [place] # (Auto) 0.06 L (0.11-0.59) K/uL Eos # (Auto) 0.00 (0.00-0.50) K/uL Baso # (Auto) 0.01 (0.00-0.20) K/uL Immature Gran # (Auto) 0.03 (0.01-0.20) K/uL PT (9.0-12.0) Seconds INR (0.9-1.1) APTT (21-31) Seconds PTT Ratio VBG pH 7.39 (7.36-7.41) VBG pCO2 42 (38-50) mmHg VBG pO2 45 mmHg VBG HCO3 25 mmol/L VBG O2 Saturation 78.6 % VBG Base Excess 0.3 mEq/L POC Sodium 140 (135-144) mmol/L Sodium 137 (136-145) mmol/L POC Potassium 4.3 (3.3-5.0) mmol/L Potassium 4.1 (3.5-5.1) mmol/L POC Chloride 102 (101-112) mmol/L Chloride 104 (98-107) mmol/L Carbon Dioxide 21 (21-32) mmol/L POC Total CO2 29 (24-31) mmol/L Anion Gap 12 H (3-11) POC Anion Gap 14.0 L (16-25) mmol/L POC BUN 10 (7-18) mg/dl BUN 11 (6-23) mg/dl Creatinine 0.87 (0.6-1.4) mg/dl POC Creatinine 1.0 (0.6-1.3) mg/dl Est Cr Clr Drug Dosing 101.0 ml/min eGFR 96.96 BUN/Creatinine Ratio 12.6 (10-20) Glucose 199 H (70-99(Fasting)) mg/dl POC Glucose (other) 94 (70-99) mg/dl Calcium 9.2 (8.6-10.3) mg/dl POC Ioniz Calcium Arnold 1.25 (1.12-1.32) mmol/l Magnesium (1.7-2.4) mg/dl Total Bilirubin (0.2-1.0) mg/dl AST (13-39) U/L ALT (7-52) U/L Alkaline Phosphatase (34-104) U/L Troponin I High Sens (0-20) pg/ml B-Natriuretic Peptide (0-100) pg/ml Total Protein (6.0-8.3) gm/dl Albumin (3.4-5.0) gm/dl Globulin (2.5-4.0) gm/dl Albumin/Globulin Ratio (0.9-2) Procalcitonin (0-0.5) ng/ml TSH (0.300-4.500) uIu/ml Adenovirus (PCR) (NotDetected) B. pertussis DNA (PCR) (NotDetected) B.parapertussis DNA PCR (NotDetected) C. pneumoniae DNA (PCR) (NotDetected) Coronavirus OC43 (PCR) (NotDetected) Coronavirus HKU1 (PCR) (NotDetected) Coronavirus 229E (PCR) (NotDetected) SARS-CoV-2 (PCR) (NotDetected) Coronavirus NL63 (PCR) (NotDetected) Human Metapneumovir PCR (NotDetected) Influenza Type A (PCR) (NotDetected) Influenza Type B (PCR) (NotDetected) M. pneumoniae (PCR) (NotDetected) Parainfluenza 1 (PCR) (NotDetected) Parainfluenza 2 (PCR) (NotDetected) Parainfluenza 3 (PCR) (NotDetected) Parainfluenza 4 (PCR) (NotDetected) RSV (PCR) (NotDetected) Entero/Rhino (PCR) (NotDetected) 11/17/24 Range/Units 20:08 WBC 10.60 (4.8-10.8) K/ul RBC 5.03 (4.70-6.10) M/uL Hgb 16.5 (14.0-18.0) g/dl POC Hgb (14.0-18.0) g/dl Hct 46.3 (42.0-52.0) % POC Hct (42-52) % MCV 92.0 (80.0-100.0) fL MCH 32.8 (25.0-34.0) pg MCHC 35.6 (32.0-36.0) g/dL RDW Std Deviation 45.6 (36.4-46.3) fL RDW Coeff of Femi 13.4 (11.5-14.5) % Plt Count 338 (130-400) K/uL MPV 10.2 (9.4-12.4) fL Immature Gran % (Auto) 0.3 % Neut % (Auto) 51.3 % Lymph % (Auto) 19.3 % [place] % (Auto) 11.7 % Eos % (Auto) 15.7 % Baso % (Auto) 1.7 % Neut # (Auto) 5.44 (1.40-6.50) K/uL Lymph # (Auto) 2.05 (1.20-3.40) K/uL [place] # (Auto) 1.24 H (0.11-0.59) K/uL Eos # (Auto) 1.66 H (0.00-0.50) K/uL Baso # (Auto) 0.18 (0.00-0.20) K/uL Immature Gran # (Auto) 0.03 (0.01-0.20) K/uL PT 10.7 (9.0-12.0) Seconds INR 1.0 (0.9-1.1) APTT 28 (21-31) Seconds PTT Ratio 1.0 VBG pH 7.33 L (7.36-7.41) VBG pCO2 61 H (38-50) mmHg VBG pO2 33 mmHg VBG HCO3 32 mmol/L VBG O2 Saturation < 60.0 % VBG Base Excess 4.5 mEq/L POC Sodium (135-144) mmol/L Sodium 142 (136-145) mmol/L POC Potassium (3.3-5.0) mmol/L Potassium 3.8 (3.5-5.1) mmol/L POC Chloride (101-112) mmol/L Chloride 104 (98-107) mmol/L Carbon Dioxide 31 (21-32) mmol/L POC Total CO2 (24-31) mmol/L Anion Gap 7 (3-11) POC Anion Gap (16-25) mmol/L POC BUN (7-18) mg/dl BUN 11 (6-23) mg/dl Creatinine 0.90 (0.6-1.4) mg/dl POC Creatinine (0.6-1.3) mg/dl Est Cr Clr Drug Dosing 97.7 ml/min eGFR 95.97 BUN/Creatinine Ratio 12.2 (10-20) Glucose 89 (70-99(Fasting)) mg/dl POC Glucose (other) (70-99) mg/dl Calcium 9.8 (8.6-10.3) mg/dl POC Ioniz Calcium Arnold (1.12-1.32) mmol/l Magnesium 1.9 (1.7-2.4) mg/dl Total Bilirubin 1.0 (0.2-1.0) mg/dl AST 19 (13-39) U/L ALT 16 (7-52) U/L Alkaline Phosphatase 50 (34-104) U/L Troponin I High Sens 5.0 (0-20) pg/ml B-Natriuretic Peptide 52 (0-100) pg/ml Total Protein 7.0 (6.0-8.3) gm/dl Albumin 4.0 (3.4-5.0) gm/dl Globulin 3.0 (2.5-4.0) gm/dl Albumin/Globulin Ratio 1.3 (0.9-2) Procalcitonin < 0.02 (0-0.5) ng/ml TSH 2.929 (0.300-4.500) uIu/ml Adenovirus (PCR) Not Detected (NotDetected) B. pertussis DNA (PCR) Not Detected (NotDetected) B.parapertussis DNA PCR Not Detected (NotDetected) C. pneumoniae DNA (PCR) Not Detected (NotDetected) Coronavirus OC43 (PCR) Not Detected (NotDetected) Coronavirus HKU1 (PCR) Not Detected (NotDetected) Coronavirus 229E (PCR) Not Detected (NotDetected) SARS-CoV-2 (PCR) Not Detected (NotDetected) Coronavirus NL63 (PCR) Not Detected (NotDetected) Human Metapneumovir PCR Not Detected (NotDetected) Influenza Type A (PCR) Not Detected (NotDetected) Influenza Type B (PCR) Not Detected (NotDetected) M. pneumoniae (PCR) Not Detected (NotDetected) Parainfluenza 1 (PCR) Not Detected (NotDetected) Parainfluenza 2 (PCR) Not Detected (NotDetected) Parainfluenza 3 (PCR) Not Detected (NotDetected) Parainfluenza 4 (PCR) Not Detected (NotDetected) RSV (PCR) Not Detected (NotDetected) Entero/Rhino (PCR) Not Detected (NotDetected) Medications Administered Current Inpatient Medications Acetaminophen (Acetaminophen 500 Mg Tab) 500 mg PO Q6H PRN PRN Reason: fever/pain Stop: 12/17/24 23:10 Last Admin: 11/18/24 08:32 Dose: 500 mg Atorvastatin Calcium (Atorvastatin 20 Mg Tab) 20 mg PO DAILY [facility]ON Stop: 12/18/24 08:59 Last Admin: 11/18/24 08:35 Dose: 20 mg Cetirizine HCl (Cetirizine Hcl 10 Mg Tablet) 10 mg PO PM [facility] Stop: 12/18/24 20:59 Enoxaparin Sodium (Enoxaparin Inj 40 Mg/0.4 Ml Syr) 40 mg SQ QAM [facility] Stop: 12/18/24 08:59 Last Admin: 11/18/24 08:35 Dose: 40 mg Fluticasone Propionate (Fluticasone Propionate Na Spr 16 Gm Btl) 1 sprays NA DAILY [facility] Stop: 12/18/24 08:59 Last Admin: 11/18/24 08:35 Dose: 1 sprays Hydroxyzine HCl (Hydroxyzine Hcl 10 Mg Tab) 10 mg PO QID PRN PRN Reason: Anxiety Stop: 12/17/24 23:09 Promethazine HCl (Phenergan) 6.25 mg in 50.25 mls @ 201 mls/hr IV Q6H PRN PRN Reason: Nausea And Vomiting Stop: 12/17/24 23:10 Lactated Ringer's (Lr) 1,000 mls @ 60 mls/hr IV .[id number] ONE Stop: 11/18/24 15:51 Last Admin: 11/18/24 00:35 Dose: 60 mls/hr Methylprednisolone 40 mg/ (Syringe) 0.64 mls @ 1.5 mls/min IV Q24H [facility] Stop: 12/18/24 08:59 Last Admin: 11/18/24 08:36 Dose: 1.5 mls/min Ipratropium [place] (Ipratropium [place] Neb Soln 0.02% 0.5mg/2.5ml Vial) 0.5 mg INH Q6R [facility] Stop: 12/18/24 00:00 Last Admin: 11/18/24 06:58 Dose: 0.5 mg Levalbuterol HCl (Levalbuterol 1.25 Mg/3 Ml Neb) 1.25 mg NEB Q6R [facility] Stop: 12/18/24 00:00 Last Admin: 11/18/24 06:58 Dose: 1.25 mg Levothyroxine Sodium (Levothyroxine Sodium 112 Mcg Tablet) 112 mcg PO DAILYBB [facility] Stop: 12/18/24 06:29 Last Admin: 11/18/24 04:40 Dose: 112 mcg Menthol (Cough Drop (Sugar Free) Kaye 24 Kaye/1 Box) 1 kaye BUCCAL Q2H PRN PRN Reason: Sore Throat Stop: 12/18/24 05:47 Last Admin: 11/18/24 06:09 Dose: 1 kaye Montelukast Sodium (Montelukast Sodium 10 Mg Tablet) 10 mg PO HS [facility] Stop: 12/18/24 20:59 Oxycodone HCl (Oxycodone Hcl Ir 5 Mg Tab (Immediate Release)) 5 mg PO Q4H PRN PRN Reason: Pain Stop: 12/01/24 23:10 Last Admin: 11/18/24 04:39 Dose: 5 mg Tamsulosin HCl (Tamsulosin Hcl 0.4 Mg Cap) 0.4 mg PO DAILY [facility] Stop: 12/18/24 08:59 Last Admin: 11/18/24 08:36 Dose: 0.4 mg
[2024-11-18] MEDS ORDERED: predniSONE 20 MG TAB PO SCH (09:00)
[2024-11-18] MEDS: hydrOXYzine HCl 10 MG TAB PO PRN (11:50)
--- NOTE | 2024-11-18 13:06 | Pulmonary Consultation ---
Date of Consultation November 18, 2024 Assessment & Plan (1) Acute hypoxic respiratory failure: (2) Cough: (3) Pneumonia: Laterality: left Lung location: lower lobe of lung Pneumonia type: due to unspecified organism Qualified Code(s): J18.9 - Pneumonia, unspecified organism (4) Reactive airway disease: Asthma complication type: with acute exacerbation Asthma persistence: unspecified Asthma severity: unspecified severity Qualified Code(s): J45.901 - Unspecified asthma with (acute) exacerbation (5) Asthma with exacerbation: (6) Upper airway cough syndrome: (7) Chronic cough: (8) Peripheral eosinophilia: Plan CTA chest 11/17/2024 personally reviewed: Small left upper lobe peripheral cavitary lesion Patchy groundglass opacity in the right middle lobe anteriorly Motion degraded study No significant mediastinal lymphadenopathy PFTs 03/01/2020: No obstructive lung dysfunction, insignificant bronchodilator response, normal lung volumes, normal flow volume loops, normal DLCO FVC 5.34 L, 98%, FEV1 4.15 L, 100%, FEV1/FVC 78%, RV 97%, TLC 99%, RV/TLC 95%, DLCO 109% -- Acute exacerbation of underlying hyperreactive airway disease from underlying asthma With possible right upper right middle lobe pneumonia On Breo 200 at home Supposed to be on 10 mg montelukast nightly but uses it as needed Was started on mepolizumab earlier this year but because of cost she stopped taking Other Biologics could be thought of in patient's case after finding out what is covered by the insurance Respiratory BioFire negative for everything on 11/17/2024 Absolute eosinophil count 1660 on 11/17/2024, it has been as high as 4020 on 08/19/2023 --Peripheral eosinophilia it has been as high as 4020 on 08/19/2023 -- Chronic cough Component of upper airway cough syndrome secondary allergic rhinitis and postnasal drip Continue with antihistamine Continue using fluticasone nasal spray on an as-needed basis Luke warm salt water gargles with OTC lozenges for sore throat. Plan: Increase Solu-Medrol to 40 mg 3 times daily Start the patient on budesonide and formoterol nebulized along with hypertonic saline Continue with montelukast as well as Claritin Azithromycin for 5 days, QTc 438 I will order tryptase level for the patient to make sure patient does not have underlying mast cell disorder given the significant elevation of eosinophils He did stop taking mepolizumab because of issues with cost, this could be rebound eosinophilia after stopping it. Although it is rare but it has been noted. I spent more than 75 minutes looking in the chart, images, discussing the plan of care with the patient, RN as well as primary team Please note the above document was generated using voice recognition software. It may contain grammatical, syntax or spelling errors.Any formal questions or concerns about the content, text or information contained within the body of this dictation should be directly addressed to the provider for clarification. History of Present Illness Attending Physician: Brodie Johnson MD History of Present Illness 64-year-old admitted to hospital with shortness of breath Past medical history: hypothyroidism, dyslipidemia, asthma '' He admitted to the hospital in the mid May 2019 with complaints of shortness of breath and cough which had been going on since February 2019. Patient had a bronchoscopy done on 05/19/2019 as he had significant peripheral eosinophilia.Total IgE: 36, Sputum for ova, parasites: Negative, Stool for ova and parasites: Negative. IgE and IgG specific to Aspergillus, ANCA, Coccidioides antibody, strongyloides Ab: All negative. Pertussis antibody was negative. BAL from the lavage grew Jenny albicans which is nonspecific especially given the patient or candidiasis. '' Patient is known to me from the clinic when he used to follow-up with me, I saw him last on 09/05/2021 Now he follows up with pulmonology Dr. Jameson at [facility] Patient was taking Breo 200 on a daily basis, he was also recently started on mepolizumab but because of the issues with the pricing he stopped taking it He was compliant with his Breo up until this episode when he was having difficulty breathing He supposed to be on montelukast on a daily basis as well but because of a weird thoughts he says he is not that compliant and uses it only on an as-needed basis He has been complaining of chest congestion and difficulty bringing up the phlegm. When he does bring of the phlegm denies any hemoptysis No dysuria, no diarrhea No unusual headache or blurry vision No subjective fever or chills Social history: Smoked for only 2 years while he was in the college, no alcohol use since last 25 years, no illicit drug use. Works as an lang interpreter. No exposure to poultry or farm. Has pet dog at home which he has since 2009. Denies any mold at home. Surgical history: Penile implant in March 2019 Family history: History of asthma in maternal grandmother, pancreatic cancer in maternal ankles, maternal grandmother had lupus. Allergies Allergy/AdvReac Type Severity Reaction Status Date / Time Gadolinium-Containing Allergy Intermediate HIVES Verified 11/04/21 19:46 Contrast Medi Home Medications Medication Instructions Recorded Confirmed Type albuterol sulfate 2.5 mg/3 mL mg inhalation TID 11/17/24 History (0.083 %) solution for nebulization albuterol sulfate 90 mcg/actuation 2 puff inhalation QID PRN Wheezing 11/17/24 11/17/24 History aerosol inhaler atorvastatin 20 mg tablet 20 mg PO DAILY 11/17/24 11/17/24 History epinephrine 0.3 mg/0.3 mL 0.3 mg IM Q4H PRN Anaphylaxis 11/17/24 11/17/24 History injection, auto-injector fluticasone furoate 200 1 inh inhalation DAILY 11/17/24 11/17/24 History mcg-vilanterol 25 mcg/dose inhalation powder fluticasone propionate 50 1 spray intranasal DAILY 11/17/24 11/17/24 History mcg/actuation nasal spray,suspension ipratropium 0.5 mg-albuterol 3 mg 3 ml inhalation 6XD 11/17/24 11/17/24 History (2.5 mg base)/3 mL nebulization soln levocetirizine 5 mg tablet 5 mg PO PM 11/17/24 11/17/24 History levothyroxine 112 mcg tablet 112 mcg PO DAILY 11/17/24 11/17/24 History mepolizumab 100 mg/mL subcutaneous 3 subcut 11/17/24 History auto-injector mepolizumab 100 mg/mL subcutaneous mg subcut 11/17/24 History auto-injector montelukast 10 mg tablet 10 mg PO HS 11/17/24 11/17/24 History tamsulosin 0.4 mg capsule 0.4 mg PO DAILY 11/17/24 11/17/24 History Patient History Medical History Prediabetes Severe persistent asthma Obesity (BMI 30.0-34.9) Acute bronchitis Hyperlipidemia Hypothyroidism Acute diverticulitis Social History Smoking Status: Never smoker Tobacco Type: Cigarettes Second Hand Exposure: No; Do You Dip or Chew Tobacco: No; Hx Alcohol Use: No Hx Substance Use: No Preferred Language: Palestinian Communication Ability: Effective Monitor And Storage Bin Tender Required: No Beliefs That Will Affect Care: None marital status: Current Living Situation: Spouse Feels Safe at Home: Yes Assistive Devices: Glasses Review of Systems 2 Review of Systems: All systems reviewed & are unremarkable except as noted in HPI & below Physical Exam 2 Physical Exam: Constitutional: No acute distress HEENT: EOMI, PERRLA Respiratory system: Decreased air entry bilaterally, no diffuse expiratory wheeze, positive rhonchi, mild crackles bilateral lower lobe CVS: S1-S2 positive, no murmurs or gallops Abdomen: Soft, nontender, nondistended, positive bowel sounds x4 Extremities: +2 pulses bilaterally radialis/ dorsalis pedis, no cyanosis, no edema Neuro: Awake alert oriented x3 Psych: Normal mood and affect G/U: No [place] Skin: no rashes, warm and dry Lymphatic: no cervical or axillary lymphadenopathy Results & Data Results & Data Vital Signs (Past 12 Hours) Vital Signs Temp Pulse Pulse Pulse Resp BP BP 11/18/24 12:37 115 H 20 11/18/24 12:24 11/18/24 12:22 37.3 C 99 H 24 128/71 11/18/24 11:57 37.8 C H 108 H 16 129/68 11/18/24 10:10 90 22 11/18/24 08:08 36.5 C 95 H 16 117/65 11/18/24 06:58 99 H 20 11/18/24 03:39 36.3 C L 84 18 110/64 11/18/24 01:01 83 18 Pulse Ox O2 Del Method O2 Flow Rate 11/18/24 12:37 93 Nasal Cannula 3 11/18/24 12:24 Nasal Cannula 4 11/18/24 12:22 91 Nasal Cannula 4 11/18/24 11:57 94 Nasal Cannula 3 11/18/24 10:10 94 Nasal Cannula 4 06/18/25 08:08 94 Nasal Cannula 2 11/18/24 06:58 97 Nasal Cannula 3 11/18/24 03:39 95 Nasal Cannula 11/18/24 01:01 93 Nasal Cannula 3 Laboratory Results Laboratory Tests 05/18/19 11:15 A.fumigatus Allerg IgE <0.10 A.fumigatus Allerg IgG 10.2 H IgE 38 Coccidioides Ab (ID) Negative Aspergillus flavus Ab Negative Aspergill fumigatus Ab Negative Aspergillus niger Ab Negative Strongyloides IgG Ab NEGATIVE 11/18/24 05:28 11/18/24 05:28 PG Care Time/CCT Total # of Minutes Spent Total Time Spent with Patient: Total time spent is greater than 50% in coordination of care (as documented) at patient's floor/unit and/or counseling patient: Coding Level of Care Code 42369 INT INP/OBS CARE 375MIN Diagnoses Acute hypoxic respiratory failure J96.01 Cough R05.9 Pneumonia J18.9 Laterality: left Lung location: lower lobe of lung Pneumonia type: due to unspecified organism Reactive airway disease J45.901 Asthma complication type: with acute exacerbation Asthma persistence: unspecified Asthma severity: unspecified severity Asthma with exacerbation J45.901 Upper airway cough syndrome R05.8 Chronic cough R05 Peripheral eosinophilia D72.19
[2024-11-18] MEDS: AZITHROMYCIN 500 MG/255 ML BAG IV SCH (14:26)
[2024-11-18] MEDS: SODIUM CHLOR 7% 4 ML NEB NEB SCH (19:59)
[2024-11-18] MEDS: BUDESONIDE 0.5 MG/2 ML VIAL (PULMICORT) NEB SCH (19:59)
[2024-11-18] MEDS: FORMOTEROL 20 MCG/2 ML VIAL NEB SCH (19:59)
--- NOTE | 2024-11-18 20:55 | Communication Note ---
Date of Service: November 18, 2024 Patient noted to be 'super wheezy and short of breath' after hypertonic saline administration as per RT. Hold hypertonic saline neb for now.
[2024-11-18] MEDS: hydrOXYzine HCl 10 MG TAB PO STA (21:53)
[2024-11-18] MEDS: methylPREDNISolone 40 MG in SYRINGE 0 ML IV ONE (21:53)
[2024-11-18] MEDS: MONTELUKAST SODIUM 10 MG TABLET PO SCH (21:54)
[2024-11-18] MEDS: CETIRIZINE HCL 10 MG TABLET PO SCH (21:54)
[2024-11-18 22:34] LABS: Magnesium 1.8 mg/dl (1.7-2.4)
--- NOTE | 2024-11-18 23:08 | XRay Report ---
Exam(s): XR CXR 1 VIEW EXAM: XR Chest, 1 View CLINICAL HISTORY: Reason for exam: wheeze. TECHNIQUE: Frontal view of the chest. COMPARISON: 11/17/2024 FINDINGS: Lungs: No consolidation. Pleural space: No significant pleural effusion. No pneumothorax. Heart: No cardiomegaly or pulmonary vascular congestion. Bones/joints: No acute fracture. No dislocation. IMPRESSION: No evidence of acute cardiopulmonary disease. Electronically signed by: Syed Barreto M.D. 11/18/24 23:07 PM
[2024-11-18] MEDS: MAGNESIUM SULFATE / D5W 1 GM/100 ML BAG IV SCH (23:55)
--- NOTE | 2024-11-19 05:18 | Electrocardiogram Report ---
Test Reason : Blood Pressure : */* mmHG Vent. Rate : 88 BPM Atrial Rate : 88 BPM P-R Int : 170 ms QRS Dur : 80 ms QT Int : 362 ms P-R-T Axes : 80 60 63 degrees QTcB Int : 438 ms Normal sinus rhythm Possible Left atrial enlargement Septal infarct , age undetermined Abnormal ECG When compared with ECG of 19-Aug-2023 16:10, No significant change was found Confirmed by Edmund Coe ([id number]) on 11/19/2024 5:18:36 AM Referred By: REFERRED SELF Confirmed By: Edmund Coe
[2024-11-19 06:07] LABS: Hematocrit (blood only) 41.5 % (42.0-52.0); Hemoglobin 14.3 g/dl (14.0-18.0); Mean Corpuscular Hemoglobin 31.8 pg (25.0-34.0); Mean Corpuscular Hgb Conc 34.5 g/dL (32.0-36.0); Mean Corpuscular Volume 92.2 fL (80.0-100.0); Platelet Count 299 K/uL (130-400); RDW Coefficient of Variation 13.9 % (11.5-14.5); RDW Standard Deviation 47.5 fL (36.4-46.3); White Blood Count 19.27 K/ul (4.8-10.8)
[2024-11-19 06:23] LABS: BUN Creatinine Ratio 17.4 (10-20); Calcium 9.3 mg/dl (8.6-10.3); Creatinine Clr Calc Pharmacy 95.6 ml/min; Magnesium 2.3 mg/dl (1.7-2.4); Phosphorus 4.3 mg/dl (2.5-4.9); Potassium 4.8 mmol/L (3.5-5.1)
[2024-11-19] MEDS: methylPREDNISolone 40 MG in SYRINGE 0 ML IV SCH (08:31)
--- NOTE | 2024-11-19 10:00 | Hospitalist Progress Note ---
Date of Service November 19, 2024 Assessment & Plan (1) Acute hypoxic respiratory failure: Plan: Assessment and plan Acute hypoxemic, hypercapnic respiratory failure Secondary to asthma exacerbation Supplemental O2 Solu-Medrol, nebs RTC Pt follows w/ [facility] Dr. Jameson , previously followed w/ [facility] pulm. 11/18 Today w/ worsening hypoxia, and resp. distress, on phys. exam significant wheezing Pulmonary medicine (Dr. Sinclair) consulted Records from [facility] reviewed - note from pulm. dated February 2024 Per pulm. pt w/ cough, poss. pna, asthma exacerb., peripheral eosinophilia (which pt has hx of and was previously on biologics) - Solu-Medrol to 40 mg 3 times daily budesonide and formoterol nebulized along with hypertonic saline Continue with montelukast as well as Claritin Azithromycin for 5 days, QTc 438 Tryptase level ordered for the patient to make sure patient does not have underlying mast cell disorder given the significant elevation of eosinophils He did stop taking mepolizumab because of issues with cost, this could be rebound eosinophilia after stopping it. Although it is rare but it has been noted. Added richard wileycodon to help w/ cough (11/19) 11/19 Pt reports contacted the company for biologics - as it is quite costly at this time and pt not able to take Chronic conditions: hyperlipidemia, on statin Rx bicuspid aortic valve PVD (hx TAA as per records, patient follows with [facility] [place]) prediabetes, hemoglobin A1c of 5.6 last year hypothyroidism, euthyroid as of curent TSH MASLD/hemochromatosis past tobacco abuse DVT prophylaxis. Lovenox subcu Full code Admission and Anticipated Discharge Date Admission Date: November 17, 2024 Subjective Pt seen in follow up of acute hypoxic resp. failure, hx of asthma Pt follows w/ pulmonary med. (currently w/ [facility] [place]. Jaemson, previously w/ [facility] Dr. Sinclair consulted and following closely - adding hycodon today as pt with significant coughing episodes, haven white also started this AM Pt reports biologics ended up being very costly, now contacted the company to see if can get assistance, plan to also discuss w/ insurance company No fever, chills, any chest pain, abd. pain, n/v, SOSA, diarrhea, or urinary symptoms Review of Systems Review of Systems: All systems reviewed & are unremarkable except as noted in Subjective Physical Exam Physical Exam: GENERAL: WD/WN M , Slightly anxious, on suppl. O2 SKIN: Normal color, warm HEENT: [place] palpebral conjunctivae, no ptosis, nasal cannula in place NECK : Supple CHEST : expiratory wheezes, + rhonchi, + cough HEART : RRR, no obvious murmurs ABDOMEN: no distention, nontender EXTREMITIES : No LE swelling/tenderness, moves extremities NEUROLOGIC : Coherent, no facial asymmetry, answers appropriately, moves extremities Results & Data Results & Data Vital Signs (Past 12 Hours) Vital Signs Temp Pulse Resp BP BP Pulse Ox O2 Del Method 11/19/24 08:34 Nasal Cannula 11/19/24 07:40 36.2 C L 91 H 20 119/56 L 95 Nasal Cannula 11/19/24 07:29 93 H 18 96 Nasal Cannula 11/19/24 05:51 94 H 26 H 95 Nasal Cannula 11/19/24 03:48 36.6 C 81 18 114/62 96 Nasal Cannula 11/19/24 01:53 76 18 96 Nasal Cannula 11/18/24 23:32 36.6 C 102 H 20 103/58 L 94 Nasal Cannula 11/18/24 23:12 83 18 97 Nasal Cannula O2 Flow Rate 11/19/24 08:34 3 11/19/24 07:40 3 11/19/24 07:29 3 11/19/24 05:51 3 11/19/24 03:48 3 11/19/24 01:53 3 11/18/24 23:32 3 11/18/24 23:12 3 Laboratory Results 11/19/24 11/18/24 11/18/24 Range/Units 05:37 12:58 05:28 WBC 19.27 H (4.8-10.8) K/ul RBC 4.50 L (4.70-6.10) M/uL Hgb 14.3 (14.0-18.0) g/dl Hct 41.5 L (42.0-52.0) % MCV 92.2 (80.0-100.0) fL MCH 31.8 (25.0-34.0) pg MCHC 34.5 (32.0-36.0) g/dL RDW Std Deviation 47.5 H (36.4-46.3) fL RDW Coeff of Femi 13.9 (11.5-14.5) % Plt Count 299 (130-400) K/uL MPV 10.0 (9.4-12.4) fL Sodium 134 L (136-145) mmol/L Potassium 4.8 (3.5-5.1) mmol/L Chloride 102 (98-107) mmol/L Carbon Dioxide 24 (21-32) mmol/L Anion Gap 8 (3-11) BUN 16 (6-23) mg/dl Creatinine 0.92 (0.6-1.4) mg/dl Est Cr Clr Drug Dosing 95.6 ml/min eGFR 93.47 BUN/Creatinine Ratio 17.4 (10-20) Glucose 160 H (70-99(Fasting)) mg/dl Calcium 9.3 (8.6-10.3) mg/dl Phosphorus 4.3 (2.5-4.9) mg/dl Magnesium 2.3 1.8 (1.7-2.4) mg/dl Tryptase Pending Medications Administered Current Inpatient Medications Acetaminophen (Acetaminophen 500 Mg Tab) 500 mg PO Q6H PRN PRN Reason: fever/pain Stop: 12/17/24 23:10 Last Admin: 11/18/24 15:43 Dose: 500 mg Atorvastatin Calcium (Atorvastatin 20 Mg Tab) 20 mg PO DAILY [facility] Stop: 12/18/24 08:59 Last Admin: 11/19/24 08:32 Dose: 20 mg Budesonide (Budesonide 0.5 Mg/2 Ml Vial (Pulmicort)) 0.5 mg NEB BIDR [facility] Stop: 12/18/24 18:59 Last Admin: 11/19/24 07:29 Dose: 0.5 mg Cetirizine HCl (Cetirizine Hcl 10 Mg Tablet) 10 mg PO PM [facility] Stop: 12/18/24 20:59 Last Admin: 11/18/24 21:54 Dose: 10 mg Enoxaparin Sodium (Enoxaparin Inj 40 Mg/0.4 Ml Syr) 40 mg SQ QAM [facility] Stop: 12/18/24 08:59 Last Admin: 11/19/24 08:32 Dose: 40 mg Fluticasone Propionate (Fluticasone Propionate Na Spr 16 Gm Btl) 1 sprays NA DAILY [facility] Stop: 12/18/24 08:59 Last Admin: 11/19/24 08:32 Dose: 1 sprays Formoterol Fumarate (Formoterol 20 Mcg/2 Ml Vial) 20 mcg NEB BIDR [facility] Stop: 12/18/24 18:59 Last Admin: 11/19/24 07:29 Dose: 20 mcg Hydroxyzine HCl (Hydroxyzine Hcl 10 Mg Tab) 10 mg PO QID PRN PRN Reason: Anxiety Stop: 12/17/24 23:09 Last Admin: 11/19/24 06:06 Dose: 10 mg Promethazine HCl (Phenergan) 6.25 mg in 50.25 mls @ 201 mls/hr IV Q6H PRN PRN Reason: Nausea And Vomiting Stop: 12/17/24 23:10 Azithromycin (Zithromax) 500 mg in 255 mls @ 127.5 mls/hr IV Q24H [facility] Stop: 11/23/24 13:14 Last Infusion: 11/18/24 16:37 Dose: Infused Methylprednisolone 40 mg/ (Syringe) 0.64 mls @ 1.5 mls/min IV Q8 [facility] Stop: 12/19/24 07:59 Last Admin: 11/19/24 08:31 Dose: 1.5 mls/min Ipratropium [place] (Ipratropium [place] Neb Soln 0.02% 0.5mg/2.5ml Vial) 0.5 mg INH Q4R [facility] Stop: 12/18/24 14:59 Last Admin: 11/19/24 05:51 Dose: 0.5 mg Levalbuterol HCl (Levalbuterol 1.25 Mg/3 Ml Neb) 1.25 mg NEB Q4R [facility] Stop: 12/18/24 14:59 Last Admin: 11/19/24 05:51 Dose: 1.25 mg Levothyroxine Sodium (Levothyroxine Sodium 112 Mcg Tablet) 112 mcg PO DAILYBB [facility] Stop: 12/18/24 06:29 Last Admin: 11/19/24 06:06 Dose: 112 mcg Menthol (Cough Drop (Sugar Free) Kaye 24 Kaye/1 Box) 1 kaye BUCCAL Q2H PRN PRN Reason: Sore Throat Stop: 12/18/24 05:47 Last Admin: 11/18/24 06:09 Dose: 1 kaye Montelukast Sodium (Montelukast Sodium 10 Mg Tablet) 10 mg PO HS [facility] Stop: 12/18/24 20:59 Last Admin: 11/18/24 21:54 Dose: 10 mg Oxycodone HCl (Oxycodone Hcl Ir 5 Mg Tab (Immediate Release)) 5 mg PO Q4H PRN PRN Reason: Pain Stop: 12/01/24 23:10 Last Admin: 11/18/24 15:43 Dose: 5 mg Sodium Chloride (Sodium Chlor 7% 4 Ml Neb) 4 ml NEB BIDR [facility] Stop: 12/18/24 18:59 Last Admin: 11/18/24 19:59 Dose: 4 ml Tamsulosin HCl (Tamsulosin Hcl 0.4 Mg Cap) 0.4 mg PO DAILY [facility] Stop: 12/18/24 08:59 Last Admin: 11/19/24 08:32 Dose: 0.4 mg
--- NOTE | 2024-11-19 10:10 | Pulmonology Progress Note ---
Date of Service November 19, 2024 Assessment & Plan (1) Acute hypoxic respiratory failure: (2) Cough: (3) Pneumonia: Laterality: left Lung location: lower lobe of lung Pneumonia type: due to unspecified organism Qualified Code(s): J18.9 - Pneumonia, unspecified organism (4) Reactive airway disease: Asthma complication type: with acute exacerbation Asthma persistence: unspecified Asthma severity: unspecified severity Qualified Code(s): J45.901 - Unspecified asthma with (acute) exacerbation (5) Asthma with exacerbation: (6) Upper airway cough syndrome: (7) Chronic cough: (8) Peripheral eosinophilia: Plan CTA chest 11/17/2024 personally reviewed: Small left upper lobe peripheral cavitary lesion Patchy groundglass opacity in the right middle lobe anteriorly Motion degraded study No significant mediastinal lymphadenopathy PFTs 03/01/2020: No obstructive lung dysfunction, insignificant bronchodilator response, normal lung volumes, normal flow volume loops, normal DLCO FVC 5.34 L, 98%, FEV1 4.15 L, 100%, FEV1/FVC 78%, RV 97%, TLC 99%, RV/TLC 95%, DLCO 109% -- Acute exacerbation of underlying hyperreactive airway disease from underlying asthma With possible right upper right middle lobe pneumonia On Breo 200 at home Supposed to be on 10 mg montelukast nightly but uses it as needed Was started on mepolizumab November 2023 but because of cost she stopped taking Other Biologics could be thought of in patient's case after finding out what is covered by the insurance He did stop taking mepolizumab because of issues with cost, this could be rebound eosinophilia after stopping it. Although it is rare but it has been noted. Respiratory BioFire negative for everything on 11/17/2024 Absolute eosinophil count 1660 on 11/17/2024, it has been as high as 4020 on 08/19/2023 --Peripheral eosinophilia it has been as high as 4020 on 08/19/2023 -- Chronic cough Component of upper airway cough syndrome secondary allergic rhinitis and postnasal drip Continue with antihistamine Continue using fluticasone nasal spray on an as-needed basis Luke warm salt water gargles with OTC lozenges for sore throat. Start Hycodan syrup for cough suppression. Admission and Anticipated Discharge Date Admission Date: November 17, 2024 Supervising Physician Co-Signing Physician Notes I saw and evaluated the patient with GIANNA Vargas, and agree with findings and plan as documented in the note. Patient seen and examined at bedside. Patient's daughter was also in the room Did not have a good night sleep because of coughing. He was actually saturating 94% on 3 L nasal cannula, I went down to 2 L. He was tachycardic Still significant coughing episodes especially when he is talking or taking deep breaths Bringing up little amount of phlegm. No hemoptysis Denies any chest pain. Constitutional: No acute distress HEENT: EOMI, PERRLA Respiratory system: Decreased air entry bilaterally, diffuse expiratory wheeze bilaterally, positive rhonchi, positive crackles bilateral lower lobe CVS: S1-S2 positive, no murmurs or gallops Abdomen: Soft, nontender, nondistended, positive bowel sounds x4 Extremities: +2 pulses bilaterally radialis/ dorsalis pedis, no cyanosis, no edema Neuro: Awake alert oriented x3 Psych: Normal mood and affect G/U: No [place] Plan: Given the significance bouts of coughing fits, will start him on hydrocodone homatroprine 5 mL every 8 hours [id number] Cont Solu-Medrol to 40 mg 3 times daily Continue with budesonide and formoterol nebulized along with hypertonic saline Continue with montelukast as well as Claritin Azithromycin for 5 days, QTc 438 Follow-up tryptase level, to make sure patient does not have underlying mast cell disorder given the significant elevation of eosinophils Please note the above document was generated using voice recognition software. It may contain grammatical, syntax or spelling errors.Any formal questions or concerns about the content, text or information contained within the body of this dictation should be directly addressed to the provider for clarification. Subjective "I have moments I feel like my oxygen has to be low because I feel like I can't catch my breath." Patient remains dyspneic with significant rhonchi and wheezing slightly improved from yesterday. Patient having persistent coughing spells which cause him to feel more short of breath. SpO2 93-95% weaned nasal cannula down to 2 liters. PRN duonebs added as respiratory therapy called to administer schedule nebulizers early. Start Hycodan syrup q4h for cough. Patient coughing up minimal yellow phlegm. Will consider adding Mucomyst neb to assist secretion clearance but will need to mindful of patient's severe reactive airway disease. Will discuss with Dr. Jameson the patient's primary remelt worker regarding alternative biologic agents as this will be borrego to maintaining asthma control after discharge given severely elevated eosinophil count. Review of Systems 2 Review of Systems: All systems reviewed & are unremarkable except as noted in HPI & below Physical Exam 2 Physical Exam: Constitutional: Patient lying in bed with mild distress which worsens with coughing spells. HEENT: EOMI, PERRLA Respiratory system: Decreased air entry bilaterally, no diffuse expiratory wheeze, positive rhonchi, mild crackles bilateral lower lobe CVS: S1-S2 positive, no murmurs or gallops Abdomen: Soft, nontender, nondistended, positive bowel sounds x4 Extremities: +2 pulses bilaterally radialis/ dorsalis pedis, no cyanosis, no edema Neuro: Awake alert oriented x3 Psych: Normal mood and affect G/U: No [place] Skin: no rashes, warm and dry Lymphatic: no cervical or axillary lymphadenopathy Results & Data Results & Data Vital Signs (Past 12 Hours) Vital Signs Temp Pulse Resp BP BP Pulse Ox O2 Del Method 11/19/24 08:34 Nasal Cannula 11/19/24 07:40 36.2 C L 91 H 20 119/56 L 95 Nasal Cannula 11/19/24 07:29 93 H 18 96 Nasal Cannula 11/19/24 05:51 94 H 26 H 95 Nasal Cannula 11/19/24 03:48 36.6 C 81 18 114/62 96 Nasal Cannula 11/19/24 01:53 76 18 96 Nasal Cannula 11/18/24 23:32 36.6 C 102 H 20 103/58 L 94 Nasal Cannula 11/18/24 23:12 83 18 97 Nasal Cannula O2 Flow Rate 11/19/24 08:34 3 11/19/24 07:40 3 11/19/24 07:29 3 11/19/24 05:51 3 11/19/24 03:48 3 11/19/24 01:53 3 11/18/24 23:32 3 11/18/24 23:12 3 Laboratory Results 11/19/24 05:37 11/19/24 05:37 Abnormal Lab Results 11/18/24 11/19/24 05:28 05:37 WBC 19.27 H RBC 4.50 L Hgb 14.3 Hct 41.5 L MCV 92.2 MCH 31.8 MCHC 34.5 RDW Std Deviation 47.5 H RDW Coeff of Femi 13.9 Plt Count 299 MPV 10.0 Sodium 134 L Potassium 4.8 Chloride 102 Carbon Dioxide 24 Anion Gap 8 BUN 16 Creatinine 0.92 Est Cr Clr Drug Dosing 95.6 eGFR 93.47 BUN/Creatinine Ratio 17.4 Glucose 160 H Calcium 9.3 Phosphorus 4.3 Magnesium 1.8 2.3 PG Care Time/CCT Total # of Minutes Spent Total Time Spent with Patient: Total time spent is greater than 50% in coordination of care (as documented) at patient's floor/unit and/or counseling patient: Coding Level of Care Code 29306 SUB INP/OBS CARE 235MIN Diagnoses Acute hypoxic respiratory failure J96.01 Cough R05.9 Pneumonia J18.9 Laterality: left Lung location: lower lobe of lung Pneumonia type: due to unspecified organism Reactive airway disease J45.901 Asthma complication type: with acute exacerbation Asthma persistence: unspecified Asthma severity: unspecified severity Asthma with exacerbation J45.901 Upper airway cough syndrome R05.8 Chronic cough R05 Peripheral eosinophilia D72.19
[2024-11-19] MEDS: BENZONATATE 100 MG CAPSULE PO SCH (10:58)
[2024-11-19] MEDS ORDERED: HYDROcodone/HOMATROPINE SYRUP 5MG/1.5MG 5ML UDP PO PRN (11:04)
[2024-11-19] MEDS: ALBUT/IPRATROP 3MG/0.5MG NEB 3 ML VIAL NEB PRN (12:46)
[2024-11-19] MEDS: HYDROcodone/HOMATROPINE SYRUP 5MG/1.5MG 5ML UDP PO SCH (13:45)
[2024-11-19] MEDS: ACETAMINOPHEN 1,000 MG/100 ML VIAL IV STA (22:40)
[2024-11-19] MEDS: hydrOXYzine HCl 10 MG TAB PO STA (22:44)
[2024-11-19] MEDS: methylPREDNISolone 20 MG in SYRINGE 0 ML IV ONE (22:50)
[2024-11-19 23:04] LABS: Base Excess VBG -0.1 mEq/L; HCO3 VBG 24 mmol/L; Oxygen Saturation VBG 97.3 %; PCO2 VBG 36 mmHg (38-50); PO2 VBG 82 mmHg; pH VBG 7.43 (7.36-7.41)
[2024-11-20] MEDS: METOPROLOL TARTRATE 1 MG/ML VIAL IV STA (00:30)
--- NOTE | 2024-11-20 02:07 | XRay Report ---
Exam(s): XR CXR 1 VIEW EXAM: XR Chest, 1 View CLINICAL HISTORY: Reason for exam: sob. TECHNIQUE: Frontal view of the chest. COMPARISON: 11/18/2024 FINDINGS: Lungs: No consolidation. Pleural space: No significant pleural effusion. No pneumothorax. Heart: No cardiomegaly or pulmonary vascular congestion. Bones/joints: No acute fracture. No dislocation. IMPRESSION: No evidence of acute cardiopulmonary disease. Electronically signed by: Syed Barreto M.D. 11/20/24 02:06 AM
[2024-11-20] MEDS: methylPREDNISolone 40 MG in SYRINGE 0 ML IV ONE (04:24)
[2024-11-20 07:25] LABS: Hematocrit (blood only) 42.2 % (42.0-52.0); Hemoglobin 15.2 g/dl (14.0-18.0); Mean Corpuscular Hemoglobin 32.5 pg (25.0-34.0); Mean Corpuscular Volume 90.4 fL (80.0-100.0); Mean Platelet Volume 9.8 fL (9.4-12.4); Platelet Count 320 K/uL (130-400); RDW Coefficient of Variation 14.1 % (11.5-14.5); RDW Standard Deviation 46.6 fL (36.4-46.3); Red Blood Count 4.67 M/uL (4.70-6.10); White Blood Count 18.62 K/ul (4.8-10.8)
[2024-11-20 07:46] LABS: BUN Creatinine Ratio 21.4 (10-20); Calcium 9.6 mg/dl (8.6-10.3); Creatinine Clr Calc Pharmacy 104.7 ml/min; Magnesium 2.1 mg/dl (1.7-2.4); Phosphorus 3.1 mg/dl (2.5-4.9); Potassium 4.7 mmol/L (3.5-5.1)
--- NOTE | 2024-11-20 08:46 | Hospitalist Progress Note ---
Date of Service November 20, 2024 Assessment & Plan (1) Acute hypoxic respiratory failure: Plan: Assessment and plan Acute hypoxemic, hypercapnic respiratory failure Secondary to asthma exacerbation Supplemental O2 Solu-Medrol, nebs RTC Pt follows w/ [facility] pulm. Dr. Jameson , previously followed w/ [facility] pulm. 11/18 Today w/ worsening hypoxia, and resp. distress, on phys. exam significant wheezing Pulmonary medicine (Dr. Sinclair) consulted Records from [facility] reviewed - note from pulm. dated February 2024 Per pulm. pt w/ cough, poss. pna, asthma exacerb., peripheral eosinophilia (which pt has hx of and was previously on biologics) - Solu-Medrol to 40 mg 3 times daily budesonide and formoterol nebulized along with hypertonic saline Continue with montelukast as well as Claritin Azithromycin for 5 days, QTc 438 Tryptase level ordered for the patient to make sure patient does not have underlying mast cell disorder given the significant elevation of eosinophils He did stop taking mepolizumab because of issues with cost, this could be rebound eosinophilia after stopping it. Although it is rare but it has been noted. Added brenda wiley to help w/ cough (11/19) 11/19 Pt reports contacted the company for biologics - as it is quite costly at this time and pt not able to take 11/20 CM also involved to help navigate insurance/ coverage for biologics Chronic conditions: hyperlipidemia, on statin Rx bicuspid aortic valve PVD (hx TAA as per records, patient follows with [facility] vascular [place]) prediabetes, hemoglobin A1c of 5.6 last year hypothyroidism, euthyroid as of curent TSH MASLD/hemochromatosis past tobacco abuse DVT prophylaxis. Lovenox subcu Full code Admission and Anticipated Discharge Date Admission Date: November 17, 2024 Subjective Pt seen in follow up of acute hypoxic resp. failure, hx of asthma Pt follows w/ pulmonary med. (currently w/ [facility] Dr. Jameson, previously w/ [facility] Dr. Sinclair consulted and following closely - added hycodon yesterday as pt with significant coughing episodes, haven white also started Pt seen while having a breathing treatment Pt reports biologics ended up being very costly, now contacted the company to see if can get assistance, plan to also discuss w/ insurance company. CM is involved. No fever, chills, chest pain, abd. pain, n/v, SOSA, diarrhea, or urinary symptoms Review of Systems Review of Systems: All systems reviewed & are unremarkable except as noted in Subjective Physical Exam Physical Exam: GENERAL: WD/WN M , Slightly anxious, on suppl. O2 SKIN: Normal color, warm HEENT: [place] palpebral conjunctivae, no ptosis, nasal cannula in place NECK : Supple CHEST : expiratory wheezes, + rhonchi, + cough HEART : RRR, no obvious murmurs ABDOMEN: no distention, nontender EXTREMITIES : No LE swelling/tenderness, moves extremities NEUROLOGIC : Coherent, no facial asymmetry, answers appropriately, moves extremities Results & Data Results & Data Vital Signs (Past 12 Hours) Vital Signs Temp Pulse Pulse Resp BP BP BP 11/20/24 08:20 36.5 C 74 16 130/75 11/20/24 07:39 77 18 11/20/24 03:20 36.4 C L 78 18 126/62 11/20/24 03:04 81 22 11/20/24 01:10 11/20/24 01:07 101 H 11/20/24 00:30 98 H 139/68 11/20/24 00:29 98 H 139/68 11/19/24 22:46 109 H 22 11/19/24 22:30 36.5 C 11/19/24 22:17 125 H 32 H 177/90 H Pulse Ox O2 Del Method O2 Flow Rate 11/20/24 08:20 97 Oxymask 4 11/20/24 07:39 98 Oxymask 4 11/20/24 03:20 98 Oxymask 11/20/24 03:04 93 Oxymask 4 11/20/24 01:10 Oxymask 4 11/20/24 01:07 11/20/24 00:30 11/20/24 00:29 96 Oxymask 4 11/19/24 22:46 93 Oxymask 4 11/19/24 22:30 11/19/24 22:17 92 Oxymask 4 Laboratory Results 11/20/24 11/19/24 Range/Units 07:01 22:50 WBC 18.62 H (4.8-10.8) K/ul RBC 4.67 L (4.70-6.10) M/uL Hgb 15.2 (14.0-18.0) g/dl Hct 42.2 (42.0-52.0) % MCV 90.4 (80.0-100.0) fL MCH 32.5 (25.0-34.0) pg MCHC 36.0 (32.0-36.0) g/dL RDW Std Deviation 46.6 H (36.4-46.3) fL RDW Coeff of Femi 14.1 (11.5-14.5) % Plt Count 320 (130-400) K/uL MPV 9.8 (9.4-12.4) fL VBG pH 7.43 H (7.36-7.41) VBG pCO2 36 L (38-50) mmHg VBG pO2 82 mmHg VBG HCO3 24 mmol/L VBG O2 Saturation 97.3 % VBG Base Excess -0.1 mEq/L Sodium 134 L (136-145) mmol/L Potassium 4.7 (3.5-5.1) mmol/L Chloride 101 (98-107) mmol/L Carbon Dioxide 27 (21-32) mmol/L Anion Gap 6 (3-11) BUN 18 (6-23) mg/dl Creatinine 0.84 (0.6-1.4) mg/dl Est Cr Clr Drug Dosing 104.7 ml/min eGFR 97.99 BUN/Creatinine Ratio 21.4 H (10-20) Glucose 145 H (70-99(Fasting)) mg/dl Calcium 9.6 (8.6-10.3) mg/dl Phosphorus 3.1 D (2.5-4.9) mg/dl Magnesium 2.1 (1.7-2.4) mg/dl Medications Administered Current Inpatient Medications Acetaminophen (Acetaminophen 500 Mg Tab) 500 mg PO Q6H PRN PRN Reason: fever/pain Stop: 12/17/24 23:10 Last Admin: 11/20/24 06:37 Dose: 500 mg Atorvastatin Calcium (Atorvastatin 20 Mg Tab) 20 mg PO DAILY [facility] Stop: 12/18/24 08:59 Last Admin: 11/20/24 08:24 Dose: 20 mg Benzonatate (Benzonatate 100 Mg Capsule) 100 mg PO TID E[facility]ON Stop: 12/19/24 10:49 Last Admin: 11/20/24 08:27 Dose: 100 mg Budesonide (Budesonide 0.5 Mg/2 Ml Vial (Pulmicort)) 0.5 mg NEB BIDR [facility] Stop: 12/18/24 18:59 Last Admin: 11/20/24 07:38 Dose: 0.5 mg Cetirizine HCl (Cetirizine Hcl 10 Mg Tablet) 10 mg PO PM [facility] Stop: 12/18/24 20:59 Last Admin: 11/19/24 20:43 Dose: 10 mg Enoxaparin Sodium (Enoxaparin Inj 40 Mg/0.4 Ml Syr) 40 mg SQ QAM [facility] Stop: 12/18/24 08:59 Last Admin: 11/20/24 08:24 Dose: 40 mg Fluticasone Propionate (Fluticasone Propionate Na Spr 16 Gm Btl) 1 sprays NA DAILY [facility] Stop: 12/18/24 08:59 Last Admin: 11/20/24 08:24 Dose: 1 sprays Formoterol Fumarate (Formoterol 20 Mcg/2 Ml Vial) 20 mcg NEB BIDR [facility] Stop: 12/18/24 18:59 Last Admin: 11/20/24 07:38 Dose: 20 mcg Hydrocodone Bit/Homatropine Methylb (Hydrocodone/Homatropine Syrup 5mg/1.5mg 5ml Udp) 5 ml PO Q8 [facility] Stop: 12/03/24 13:59 Last Admin: 11/20/24 05:23 Dose: 5 ml Hydroxyzine HCl (Hydroxyzine Hcl 10 Mg Tab) 10 mg PO QID PRN PRN Reason: Anxiety Stop: 12/17/24 23:09 Last Admin: 11/20/24 04:14 Dose: 10 mg Azithromycin (Zithromax) 500 mg in 255 mls @ 127.5 mls/hr IV Q24H [facility] Stop: 11/23/24 13:14 Last Infusion: 11/19/24 15:57 Dose: Infused Methylprednisolone 40 mg/ (Syringe) 0.64 mls @ 1.5 mls/min IV Q8H [facility] Stop: 12/20/24 13:59 Ipratropium [place] (Ipratropium [place] Neb Soln 0.02% 0.5mg/2.5ml Vial) 0.5 mg INH Q4R [facility] Stop: 12/18/24 14:59 Last Admin: 11/20/24 07:39 Dose: Not Given Levalbuterol HCl (Levalbuterol 1.25 Mg/3 Ml Neb) 1.25 mg NEB Q4R [facility] Stop: 12/18/24 14:59 Last Admin: 11/20/24 07:39 Dose: Not Given Levothyroxine Sodium (Levothyroxine Sodium 112 Mcg Tablet) 112 mcg PO DAILYBB [facility] Stop: 12/18/24 06:29 Last Admin: 11/20/24 05:23 Dose: 112 mcg Menthol (Cough Drop (Sugar Free) Kaye 24 Kaye/1 Box) 1 kaye BUCCAL Q2H PRN PRN Reason: Sore Throat Stop: 12/18/24 05:47 Last Admin: 11/18/24 06:09 Dose: 1 kaye Montelukast Sodium (Montelukast Sodium 10 Mg Tablet) 10 mg PO HS [facility] Stop: 12/18/24 20:59 Last Admin: 11/19/24 20:43 Dose: 10 mg Oxycodone HCl (Oxycodone Hcl Ir 5 Mg Tab (Immediate Release)) 5 mg PO Q4H PRN PRN Reason: Pain Stop: 12/01/24 23:10 Last Admin: 11/18/24 15:43 Dose: 5 mg Sodium Chloride (Sodium Chlor 7% 4 Ml Neb) 4 ml NEB BIDR [facility] Stop: 12/18/24 18:59 Last Admin: 11/18/24 19:59 Dose: 4 ml Tamsulosin HCl (Tamsulosin Hcl 0.4 Mg Cap) 0.4 mg PO DAILY [facility] Stop: 12/18/24 08:59 Last Admin: 11/20/24 08:24 Dose: 0.4 mg
--- NOTE | 2024-11-20 09:53 | Pulmonology Progress Note ---
Date of Service November 20, 2024 Assessment & Plan (1) Acute hypoxic respiratory failure: (2) Cough: (3) Pneumonia: Laterality: left Lung location: lower lobe of lung Pneumonia type: due to unspecified organism Qualified Code(s): J18.9 - Pneumonia, unspecified organism (4) Reactive airway disease: Asthma complication type: with acute exacerbation Asthma persistence: unspecified Asthma severity: unspecified severity Qualified Code(s): J45.901 - Unspecified asthma with (acute) exacerbation (5) Asthma with exacerbation: (6) Upper airway cough syndrome: (7) Chronic cough: (8) Peripheral eosinophilia: Plan CTA chest 11/17/2024 personally reviewed: Small left upper lobe peripheral cavitary lesion Patchy groundglass opacity in the right middle lobe anteriorly Motion degraded study No significant mediastinal lymphadenopathy PFTs 03/01/2020: No obstructive lung dysfunction, insignificant bronchodilator response, normal lung volumes, normal flow volume loops, normal DLCO FVC 5.34 L, 98%, FEV1 4.15 L, 100%, FEV1/FVC 78%, RV 97%, TLC 99%, RV/TLC 95%, DLCO 109% -- Acute exacerbation of underlying hyperreactive airway disease from underlying asthma With possible right upper right middle lobe pneumonia On Breo 200 at home Supposed to be on 10 mg montelukast nightly but uses it as needed Was started on mepolizumab November 2023 but because of cost she stopped taking Other Biologics could be thought of in patient's case after finding out what is covered by the insurance He did stop taking mepolizumab because of issues with cost, this could be rebound eosinophilia after stopping it. Although it is rare but it has been noted. Respiratory BioFire negative for everything on 11/17/2024 Absolute eosinophil count 1660 on 11/17/2024, it has been as high as 4020 on 08/19/2023 --Peripheral eosinophilia it has been as high as 4020 on 08/19/2023 -- Chronic cough Component of upper airway cough syndrome secondary allergic rhinitis and postnasal drip Continue with antihistamine Continue using fluticasone nasal spray on an as-needed basis Luke warm salt water gargles with OTC lozenges for sore throat. Continue Hycodan syrup for cough suppression. Admission and Anticipated Discharge Date Admission Date: November 17, 2024 Supervising Physician Co-Signing Physician Notes I saw and evaluated the patient with GIANNA Vargas, and agree with findings and plan as documented in the note. Patient seen and examined at bedside. No acute distress. Patient stated that he is feeling better. Coughing fits have decreased but still present He was able to talk in full sentences and coughed only once during the whole time. He was saturating 96% on 3 L, went down to 1 L On physical exam he still has some wheezing and rhonchi but he seems to be improved compared to yesterday Fair appetite, no nausea vomiting Constitutional: No acute distress HEENT: EOMI, PERRLA Respiratory system: Decreased air entry bilaterally, positive expiratory wheeze bilaterally, improved from before, positive rhonchi, positive crackles bilateral lower lobe CVS: S1-S2 positive, no murmurs or gallops, tachycardia Abdomen: Soft, nontender, nondistended, positive bowel sounds x4 Extremities: +2 pulses bilaterally radialis/ dorsalis pedis, no cyanosis, no edema Neuro: Awake alert oriented x3 Psych: Normal mood and affect G/U: No Collado Plan: Continue with hydrocodone homatroprine 5 mL every 8 hours [id number] Cont Solu-Medrol to 40 mg 3 times daily, will try to go down to twice daily tomorrow Continue with budesonide and formoterol nebulized along with hypertonic saline Continue with montelukast as well as Claritin Azithromycin for 5 days, QTc 438 Follow-up tryptase level, to make sure patient does not have underlying mast cell disorder given the significant elevation of eosinophils Please note the above document was generated using voice recognition software. It may contain grammatical, syntax or spelling errors.Any formal questions or concerns about the content, text or information contained within the body of this dictation should be directly addressed to the provider for clarification. Subjective "I fee like I am getting better faster than I have in the past." "I feel worse during and after coughing fits." Patient continues to wheeze and have bilateral rhonchi. Subjectively breathing feels improved since admission. SpO2 95-96% on 3L oxymask. Coughing improved with hydrocodone-homatropine and Tessalon-Perle. Patient had an episode of chest tightness overnight and increasing shortness of breath. CXR ordered and showed no acute cardiopulmonary abnormalities. Tightness resolved spontaneously. Review of Systems 2 Review of Systems: All systems reviewed & are unremarkable except as noted in HPI & below Physical Exam 2 Physical Exam: Constitutional: Patient lying in bed with mild distress which worsens with coughing spells. HEENT: EOMI, PERRLA Respiratory system: Decreased air entry bilaterally, expiratory wheeze noted bilaterally, positive rhonchi, mild crackles bilateral lower lobe CVS: S1-S2 positive, no murmurs or gallops Abdomen: Soft, nontender, nondistended, positive bowel sounds x4 Extremities: +2 pulses bilaterally radialis/ dorsalis pedis, no cyanosis, no edema Neuro: Awake alert oriented x3 Psych: Normal mood and affect G/U: No [place] Skin: no rashes, warm and dry Lymphatic: no cervical or axillary lymphadenopathy Results & Data Results & Data Vital Signs (Past 12 Hours) Vital Signs Temp Pulse Pulse Resp BP BP BP 11/20/24 08:20 36.5 C 74 16 130/75 11/20/24 07:39 77 18 11/20/24 03:20 36.4 C L 78 18 126/62 11/20/24 03:04 81 22 11/20/24 01:10 11/20/24 01:07 101 H 11/20/24 00:30 98 H 139/68 11/20/24 00:29 98 H 139/68 11/19/24 22:46 109 H 22 11/19/24 22:30 36.5 C 11/19/24 22:17 125 H 32 H 177/90 H Pulse Ox O2 Del Method O2 Flow Rate 11/20/24 08:20 97 Oxymask 4 11/20/24 07:39 98 Oxymask 4 11/20/24 03:20 98 Oxymask 11/20/24 03:04 93 Oxymask 4 11/20/24 01:10 Oxymask 4 11/20/24 01:07 11/20/24 00:30 11/20/24 00:29 96 Oxymask 4 11/19/24 22:46 93 Oxymask 4 11/19/24 22:30 11/19/24 22:17 92 Oxymask 4 Laboratory Results 11/20/24 07:01 11/20/24 07:01 Abnormal Lab Results 11/19/24 11/20/24 22:50 07:01 WBC 18.62 H RBC 4.67 L Hgb 15.2 Hct 42.2 MCV 90.4 MCH 32.5 MCHC 36.0 RDW Std Deviation 46.6 H RDW Coeff of Femi 14.1 Plt Count 320 MPV 9.8 VBG pH 7.43 H VBG pCO2 36 L VBG pO2 82 VBG HCO3 24 VBG O2 Saturation 97.3 VBG Base Excess -0.1 Sodium 134 L Potassium 4.7 Chloride 101 Carbon Dioxide 27 Anion Gap 6 BUN 18 Creatinine 0.84 Est Cr Clr Drug Dosing 104.7 eGFR 97.99 BUN/Creatinine Ratio 21.4 H Glucose 145 H Calcium 9.6 Phosphorus 3.1 D Magnesium 2.1 Diagnostic Findings Chest X-Ray 11/19/24 22:31 Exam(s): XR CXR 1 VIEW EXAM: XR Chest, 1 View CLINICAL HISTORY: Reason for exam: sob. TECHNIQUE: Frontal view of the chest. COMPARISON: 11/18/2024 FINDINGS: Lungs: No consolidation. Pleural space: No significant pleural effusion. No pneumothorax. Heart: No cardiomegaly or pulmonary vascular congestion. Bones/joints: No acute fracture. No dislocation. IMPRESSION: No evidence of acute cardiopulmonary disease. Electronically signed by: Syed Barreto M.D. 11/20/24 02:06 AM PG Care Time/CCT Total # of Minutes Spent Total Time Spent with Patient: Total time spent is greater than 50% in coordination of care (as documented) at patient's floor/unit and/or counseling patient: Coding Level of Care Code 67501 SUB INP/OBS CARE 2/35MIN Diagnoses Acute hypoxic respiratory failure J96.01 Cough R05.9 Pneumonia J18.9 Laterality: left Lung location: lower lobe of lung Pneumonia type: due to unspecified organism Reactive airway disease J45.901 Asthma complication type: with acute exacerbation Asthma persistence: unspecified Asthma severity: unspecified severity Asthma with exacerbation J45.901 Upper airway cough syndrome R05.8 Chronic cough R05 Peripheral eosinophilia D72.19
[2024-11-20] MEDS: methylPREDNISolone 40 MG in SYRINGE 0 ML IV SCH (13:08)
--- NOTE | 2024-11-20 13:30 | Electrocardiogram Report ---
Test Reason : Blood Pressure : */* mmHG Vent. Rate : 114 BPM Atrial Rate : 114 BPM P-R Int : 156 ms QRS Dur : 88 ms QT Int : 332 ms P-R-T Axes : 76 61 61 degrees QTcB Int : 457 ms Sinus tachycardia Possible Left atrial enlargement Septal infarct (cited on or before 17-Nov-2024) Abnormal ECG When compared with ECG of 17-Nov-2024 20:00, No significant change was found Confirmed by Miles Ahuja ([id number]) on 11/20/2024 1:29:38 PM Referred By: REFERRED SELF Confirmed By: Miles Ahuja
[2024-11-21 06:29] LABS: Hematocrit (blood only) 45.2 % (42.0-52.0); Hemoglobin 15.8 g/dl (14.0-18.0); Mean Corpuscular Hemoglobin 32.3 pg (25.0-34.0); Mean Corpuscular Volume 92.4 fL (80.0-100.0); Mean Platelet Volume 10.1 fL (9.4-12.4); Platelet Count 316 K/uL (130-400); RDW Standard Deviation 47.6 fL (36.4-46.3); Red Blood Count 4.89 M/uL (4.70-6.10); White Blood Count 16.69 K/ul (4.8-10.8)
[2024-11-21 07:04] LABS: BUN Creatinine Ratio 18.3 (10-20); Calcium 9.6 mg/dl (8.6-10.3); Creatinine Clr Calc Pharmacy 84.5 ml/min; Magnesium 2.2 mg/dl (1.7-2.4); Phosphorus 4.1 mg/dl (2.5-4.9); Potassium 4.4 mmol/L (3.5-5.1)
--- NOTE | 2024-11-21 08:40 | Pulmonology Progress Note ---
Date of Service November 21, 2024 Assessment & Plan (1) Acute hypoxic respiratory failure: (2) Cough: (3) Pneumonia: Laterality: left Lung location: lower lobe of lung Pneumonia type: due to unspecified organism Qualified Code(s): J18.9 - Pneumonia, unspecified organism (4) Reactive airway disease: Asthma complication type: with acute exacerbation Asthma persistence: unspecified Asthma severity: unspecified severity Qualified Code(s): J45.901 - Unspecified asthma with (acute) exacerbation (5) Asthma with exacerbation: (6) Upper airway cough syndrome: (7) Chronic cough: (8) Peripheral eosinophilia: Plan CTA chest 11/17/2024 personally reviewed: Small left upper lobe peripheral cavitary lesion Patchy groundglass opacity in the right middle lobe anteriorly Motion degraded study No significant mediastinal lymphadenopathy PFTs 03/01/2020: No obstructive lung dysfunction, insignificant bronchodilator response, normal lung volumes, normal flow volume loops, normal DLCO FVC 5.34 L, 98%, FEV1 4.15 L, 100%, FEV1/FVC 78%, RV 97%, TLC 99%, RV/TLC 95%, DLCO 109% -- Acute exacerbation of underlying hyperreactive airway disease from underlying asthma With possible right upper right middle lobe pneumonia On Breo 200 at home Supposed to be on 10 mg montelukast nightly but uses it as needed Was started on mepolizumab November 2023 but because of cost she stopped taking Other Biologics could be thought of in patient's case after finding out what is covered by the insurance He did stop taking mepolizumab because of issues with cost, this could be rebound eosinophilia after stopping it. Although it is rare but it has been noted. Respiratory BioFire negative for everything on 11/17/2024 Absolute eosinophil count 1660 on 11/17/2024, it has been as high as 4020 on 08/19/2023 --Peripheral eosinophilia it has been as high as 4020 on 08/19/2023 -- Chronic cough Component of upper airway cough syndrome secondary allergic rhinitis and postnasal drip Continue with antihistamine Continue using fluticasone nasal spray on an as-needed basis Luke warm salt water gargles with OTC lozenges for sore throat. Plan: Continue with hydrocodone homatroprine 5 mL every 8 hours [id number] Continue with benzonatate Perles Cont Solu-Medrol to 40 mg twice daily Continue with budesonide and formoterol nebulized along with hypertonic saline Continue with montelukast as well as Claritin Azithromycin for 5 days, QTc 438 Follow-up tryptase level, to make sure patient does not have underlying mast cell disorder given the significant elevation of eosinophils Please note the above document was generated using voice recognition software. It may contain grammatical, syntax or spelling errors.Any formal questions or concerns about the content, text or information contained within the body of this dictation should be directly addressed to the provider for clarification. Admission and Anticipated Discharge Date Admission Date: November 17, 2024 Subjective Patient seen and examined at bedside. No acute distress Still having coughing fits whenever he talks. He says he is bringing up phlegm now. Was saturating 97% on room air while being little tachycardic Denied any nausea or vomiting Fair appetite No headache Review of Systems 2 Review of Systems: All systems reviewed & are unremarkable except as noted in Subjective Physical Exam 2 Physical Exam: Constitutional: No acute distress HEENT: EOMI, PERRLA Respiratory system: Decreased air entry bilaterally, positive diffuse expiratory wheeze, positive rhonchi, mild crackles bilateral lower lobe CVS: S1-S2 positive, no murmurs or gallops Abdomen: Soft, nontender, nondistended, positive bowel sounds x4 Extremities: +2 pulses bilaterally radialis/ dorsalis pedis, no cyanosis, no edema Neuro: Awake alert oriented x3 Psych: Normal mood and affect G/U: No [place] Skin: no rashes, warm and dry Lymphatic: no cervical or axillary lymphadenopathy Results & Data Results & Data Vital Signs (Past 12 Hours) Vital Signs Temp Pulse Pulse Resp BP Pulse Ox O2 Del Method 11/21/24 08:08 84 11/21/24 08:08 Room Air 11/21/24 07:36 36.7 C 97 H 18 145/76 H 93 Room Air 11/21/24 07:07 91 H 20 95 Room Air 11/21/24 03:29 36.6 C 76 18 134/77 93 Room Air 11/21/24 03:02 77 18 90 Room Air 11/21/24 01:38 88 11/20/24 23:14 36.7 C 80 20 147/83 H 93 Room Air 06/20/25 22:44 81 18 91 Room Air Laboratory Results Laboratory Tests 05/18/19 11:15 A.fumigatus Allerg IgE <0.10 A.fumigatus Allerg IgG 10.2 H IgE 38 Coccidioides Ab (ID) Negative Aspergillus flavus Ab Negative Aspergill fumigatus Ab Negative Aspergillus niger Ab Negative Strongyloides IgG Ab NEGATIVE 11/21/24 05:57 11/21/24 05:57 PG Care Time/CCT Total # of Minutes Spent Total Time Spent with Patient: Total time spent is greater than 50% in coordination of care (as documented) at patient's floor/unit and/or counseling patient: Coding Level of Care Code 45496 SUB INP/OBS CARE 2/35MIN Diagnoses Acute hypoxic respiratory failure J96.01 Cough R05.9 Pneumonia J18.9 Laterality: left Lung location: lower lobe of lung Pneumonia type: due to unspecified organism Reactive airway disease J45.901 Asthma complication type: with acute exacerbation Asthma persistence: unspecified Asthma severity: unspecified severity Asthma with exacerbation J45.901 Upper airway cough syndrome R05.8 Chronic cough R05 Peripheral eosinophilia D72.19
--- NOTE | 2024-11-21 13:03 | Hospitalist Progress Note ---
Date of Service November 21, 2024 Assessment & Plan (1) Acute hypoxic respiratory failure: Plan: Assessment and plan Acute hypoxemic, hypercapnic respiratory failure Secondary to asthma exacerbation Supplemental O2 Solu-Medrol, nebs RTC [facility] , previously followed w/ [facility] pulm. 11/18 Today w/ worsening hypoxia, and resp. distress, on phys. exam significant wheezing Pulmonary medicine (Dr. Sinclair) consulted Records from [facility] reviewed - note from pulm. dated February 2024 Per pulm. pt w/ cough, poss. pna, asthma exacerb., peripheral eosinophilia (which pt has hx of and was previously on biologics) - Solu-Medrol to 40 mg 3 times daily -> twice a day budesonide and formoterol nebulized along with hypertonic saline Continue with montelukast as well as Claritin Azithromycin for 5 days, QTc 438 Tryptase level ordered for the patient to make sure patient does not have underlying mast cell disorder given the significant elevation of eosinophils. Tryptase 4.2 (normal) He did stop taking mepolizumab because of issues with cost, this could be rebound eosinophilia after stopping it. Although it is rare but it has been noted. Added brenda wiley to help w/ cough (11/19) 11/19 Pt reports contacted the company for biologics - as it is quite costly at this time and pt not able to take 11/20 CM also involved to help navigate insurance/ coverage for biologics 11/21 Pt now on RA, but still with coughing spells, and now coughing up some phlegm Chronic conditions: hyperlipidemia, on statin Rx bicuspid aortic valve PVD (hx TAA as per records, [place] [facility] [place] prediabetes, hemoglobin A1c of 5.6 last year hypothyroidism, euthyroid as of current TSH MASLD/hemochromatosis past tobacco abuse DVT prophylaxis. Lovenox subcu Full code Admission and Anticipated Discharge Date Admission Date: November 17, 2024 Subjective Pt seen in follow up of acute hypoxic resp. failure, hx of asthma Pt follows w/ pulmonary med. ([place] [facility] [place], previously w/ [facility]). Dr. Sinclair consulted and following closely - added hycodon as pt with significant coughing episodes, haven white also added Pt reports biologics ended up being very costly, now contacted the company to see if can get assistance, plan to also discuss w/ insurance company. CM is involved. No fever, chills, chest pain, abd. pain, n/v, SOSA, diarrhea, or urinary symptoms Currently pt sitting up in bed in NAD, on RA , still with coughing episodes. Coughed up phlegm yesterday. Review of Systems Review of Systems: All systems reviewed & are unremarkable except as noted in Subjective Physical Exam Physical Exam: GENERAL: WD/WN M , Slightly anxious, on RA SKIN: Normal color, warm HEENT: [place] palpebral conjunctivae, no ptosis, nasal cannula in place NECK : Supple CHEST : expiratory wheezes, + rhonchi, + cough HEART : RRR, no obvious murmurs ABDOMEN: no distention, nontender EXTREMITIES : No LE swelling/tenderness, moves extremities NEUROLOGIC : Coherent, no facial asymmetry, answers appropriately, moves extremi ties Results & Data Results & Data Vital Signs (Past 12 Hours) Vital Signs Temp Pulse Pulse Resp BP Pulse Ox O2 Del Method 11/21/24 11:03 36.8 C 87 16 153/84 H 93 Room Air 11/21/24 11:01 89 20 91 Room Air 11/21/24 08:08 84 11/21/24 08:08 Room Air 11/21/24 07:36 36.7 C 97 H 18 145/76 H 93 Room Air 11/21/24 07:07 91 H 20 95 Room Air 11/21/24 03:29 36.6 C 76 18 134/77 93 Room Air 11/21/24 03:02 77 18 90 Room Air 11/21/24 01:38 88 Laboratory Results 11/21/24 Range/Units 05:57 WBC 16.69 H (4.8-10.8) K/ul RBC 4.89 (4.70-6.10) M/uL Hgb 15.8 (14.0-18.0) g/dl Hct 45.2 (42.0-52.0) % MCV 92.4 (80.0-100.0) fL MCH 32.3 (25.0-34.0) pg MCHC 35.0 (32.0-36.0) g/dL RDW Std Deviation 47.6 H (36.4-46.3) fL RDW Coeff of Femi 14.0 (11.5-14.5) % Plt Count 316 (130-400) K/uL MPV 10.1 (9.4-12.4) fL Sodium 137 (136-145) mmol/L Potassium 4.4 (3.5-5.1) mmol/L Chloride 99 (98-107) mmol/L Carbon Dioxide 30 (21-32) mmol/L Anion Gap 8 (3-11) BUN 19 (6-23) mg/dl Creatinine 1.04 (0.6-1.4) mg/dl Est Cr Clr Drug Dosing 84.5 ml/min eGFR 80.68 BUN/Creatinine Ratio 18.3 (10-20) Glucose 178 H (70-99(Fasting)) mg/dl Calcium 9.6 (8.6-10.3) mg/dl Phosphorus 4.1 D (2.5-4.9) mg/dl Magnesium 2.2 (1.7-2.4) mg/dl Medications Administered Current Inpatient Medications Acetaminophen (Acetaminophen 500 Mg Tab) 500 mg PO Q6H PRN PRN Reason: fever/pain Stop: 12/17/24 23:10 Last Admin: 11/21/24 01:35 Dose: 500 mg Atorvastatin Calcium (Atorvastatin 20 Mg Tab) 20 mg PO DAILY EDSON Stop: 12/18/24 08:59 Last Admin: 11/21/24 09:41 Dose: 20 mg Benzonatate (Benzonatate 100 Mg Capsule) 100 mg PO TID EDSON Stop: 12/19/24 10:49 Last Admin: 11/21/24 09:44 Dose: 100 mg Budesonide (Budesonide 0.5 Mg/2 Ml Vial (Pulmicort)) 0.5 mg NEB BIDR EDSON Stop: 12/18/24 18:59 Last Admin: 11/21/24 07:02 Dose: 0.5 mg Cetirizine HCl (Cetirizine Hcl 10 Mg Tablet) 10 mg PO PM EDSON Stop: 12/18/24 20:59 Last Admin: 11/20/24 20:32 Dose: 10 mg Enoxaparin Sodium (Enoxaparin Inj 40 Mg/0.4 Ml Syr) 40 mg SQ QAM EDSON Stop: 12/18/24 08:59 Last Admin: 11/21/24 09:40 Dose: 40 mg Fluticasone Propionate (Fluticasone Propionate Na Spr 16 Gm Btl) 1 sprays NA DAILY EDSON Stop: 12/18/24 08:59 Last Admin: 11/21/24 09:41 Dose: 1 sprays Formoterol Fumarate (Formoterol 20 Mcg/2 Ml Vial) 20 mcg NEB BIDR EDSON Stop: 12/18/24 18:59 Last Admin: 11/21/24 07:04 Dose: 20 mcg Hydrocodone Bit/Homatropine Methylb (Hydrocodone/Homatropine Syrup 5mg/1.5mg 5ml Udp) 5 ml PO Q8 EDSON Stop: 12/03/24 13:59 Last Admin: 11/21/24 05:32 Dose: 5 ml Hydroxyzine HCl (Hydroxyzine Hcl 10 Mg Tab) 10 mg PO QID PRN PRN Reason: Anxiety Stop: 12/17/24 23:09 Last Admin: 11/20/24 20:33 Dose: 10 mg Azithromycin (Zithromax) 500 mg in 255 mls @ 127.5 mls/hr IV Q24H EDSON Stop: 11/23/24 13:14 Last Infusion: 11/20/24 17:15 Dose: Infused Methylprednisolone 40 mg/ (Syringe) 0.64 mls @ 1.5 mls/min IV Q12 EDSON Stop: 12/21/24 20:59 Ipratropium [place] (Ipratropium [place] Neb Soln 0.02% 0.5mg/2.5ml Vial) 0.5 mg INH Q4R EDSON Stop: 12/18/24 14:59 Last Admin: 11/21/24 11:01 Dose: 0.5 mg Levalbuterol HCl (Levalbuterol 1.25 Mg/3 Ml Neb) 1.25 mg NEB Q4R EDSON Stop: 12/18/24 14:59 Last Admin: 11/21/24 11:01 Dose: 1.25 mg Levothyroxine Sodium (Levothyroxine Sodium 112 Mcg Tablet) 112 mcg PO DAILYBB EDSON Stop: 12/18/24 06:29 Last Admin: 11/21/24 05:32 Dose: 112 mcg Menthol (Cough Drop (Sugar Free) Kaye 24 Kaye/1 Box) 1 kaye BUCCAL Q2H PRN PRN Reason: Sore Throat Stop: 12/18/24 05:47 Last Admin: 11/18/24 06:09 Dose: 1 kaye Montelukast Sodium (Montelukast Sodium 10 Mg Tablet) 10 mg PO HS EDSON Stop: 12/18/24 20:59 Last Admin: 11/20/24 20:32 Dose: 10 mg Oxycodone HCl (Oxycodone Hcl Ir 5 Mg Tab (Immediate Release)) 5 mg PO Q4H PRN PRN Reason: Pain Stop: 12/01/24 23:10 Last Admin: 11/18/24 15:43 Dose: 5 mg Sodium Chloride (Sodium Chlor 7% 4 Ml Neb) 4 ml NEB BIDR EDSON Stop: 12/18/24 18:59 Last Admin: 11/18/24 19:59 Dose: 4 ml Tamsulosin HCl (Tamsulosin Hcl 0.4 Mg Cap) 0.4 mg PO DAILY EDSON Stop: 12/18/24 08:59 Last Admin: 11/21/24 09:41 Dose: 0.4 mg
[2024-11-21] MEDS: SODIUM CHLORIDE 0.9% 500 ML IV ONE (16:42)
[2024-11-21] MEDS: methylPREDNISolone 40 MG in SYRINGE 0 ML IV SCH (22:02)
[2024-11-22 06:10] LABS: Hemoglobin 14.6 g/dl (14.0-18.0); Mean Corpuscular Hemoglobin 31.6 pg (25.0-34.0); Mean Corpuscular Volume 93.1 fL (80.0-100.0); Platelet Count 308 K/uL (130-400); RDW Coefficient of Variation 13.8 % (11.5-14.5); RDW Standard Deviation 47.3 fL (36.4-46.3); Red Blood Count 4.62 M/uL (4.70-6.10); White Blood Count 8.87 K/ul (4.8-10.8)
[2024-11-22 06:37] LABS: BUN Creatinine Ratio 20.9 (10-20); Calcium 8.9 mg/dl (8.6-10.3); Creatinine Clr Calc Pharmacy 96.6 ml/min; Magnesium 2.2 mg/dl (1.7-2.4); Phosphorus 4.1 mg/dl (2.5-4.9); Potassium 4.6 mmol/L (3.5-5.1)
--- NOTE | 2024-11-22 08:30 | Pulmonology Progress Note ---
Date of Service November 22, 2024 Assessment & Plan (1) Acute hypoxic respiratory failure: (2) Cough: (3) Pneumonia: Laterality: left Lung location: lower lobe of lung Pneumonia type: due to unspecified organism Qualified Code(s): J18.9 - Pneumonia, unspecified organism (4) Reactive airway disease: Asthma complication type: with acute exacerbation Asthma persistence: unspecified Asthma severity: unspecified severity Qualified Code(s): J45.901 - Unspecified asthma with (acute) exacerbation (5) Asthma with exacerbation: (6) Upper airway cough syndrome: (7) Chronic cough: (8) Peripheral eosinophilia: Plan CTA chest 11/17/2024 personally reviewed: Small left upper lobe peripheral cavitary lesion Patchy groundglass opacity in the right middle lobe anteriorly Motion degraded study No significant mediastinal lymphadenopathy PFTs 03/01/2020: No obstructive lung dysfunction, insignificant bronchodilator response, normal lung volumes, normal flow volume loops, normal DLCO FVC 5.34 L, 98%, FEV1 4.15 L, 100%, FEV1/FVC 78%, RV 97%, TLC 99%, RV/TLC 95%, DLCO 109% -- Acute exacerbation of underlying hyperreactive airway disease from underlying asthma With possible right upper right middle lobe pneumonia On Breo 200 at home Supposed to be on 10 mg montelukast nightly but uses it as needed Was started on mepolizumab November 2023 but because of cost she stopped taking Other Biologics could be thought of in patient's case after finding out what is covered by the insurance He did stop taking mepolizumab because of issues with cost, this could be rebound eosinophilia after stopping it. Although it is rare but it has been noted. Respiratory BioFire negative for everything on 11/17/2024 Absolute eosinophil count 1660 on 11/17/2024, it has been as high as 4020 on 08/19/2023 --Peripheral eosinophilia it has been as high as 4020 on 08/19/2023 -- Chronic cough Component of upper airway cough syndrome secondary allergic rhinitis and postnasal drip Continue with antihistamine Continue using fluticasone nasal spray on an as-needed basis Luke warm salt water gargles with OTC lozenges for sore throat. Plan: Continue with hydrocodone homatroprine 5 mL every 8 hours [id number] Continue with benzonatate Perles Cont Solu-Medrol to 40 mg twice daily Continue with budesonide and formoterol nebulized along with hypertonic saline, chest vest to be added to the regimen Continue with montelukast as well as Claritin Azithromycin for 5 days, QTc 438 Tryptase level within normal limit Please note the above document was generated using voice recognition software. It may contain grammatical, syntax or spelling errors.Any formal questions or concerns about the content, text or information contained within the body of this dictation should be directly addressed to the provider for clarification. Admission and Anticipated Discharge Date Admission Date: November 17, 2024 Subjective Patient seen and examined at bedside. No acute distress, no adverse events overnight Was saturating 97% on room air He stated he is feeling better compared to before Was able to tolerate hypertonic saline, bringing up clear phlegm. Denies any hemoptysis No nausea or vomiting, fair appetite No headache Review of Systems 2 Review of Systems: All systems reviewed & are unremarkable except as noted in Subjective Physical Exam 2 Physical Exam: Constitutional: No acute distress HEENT: EOMI, PERRLA Respiratory system: Decreased air entry bilaterally, no crackles, positive expiratory wheeze, positive rhonchi, improved from yesterday CVS: S1-S2 positive, no murmurs or gallops Abdomen: Soft, nontender, nondistended, positive bowel sounds x4 Extremities: +2 pulses bilaterally radialis/ dorsalis pedis, no cyanosis, no edema Neuro: Awake alert oriented x3 Psych: Normal mood and affect G/U: No [place] Skin: no rashes, warm and dry Lymphatic: no cervical or axillary lymphadenopathy Results & Data Results & Data Vital Signs (Past 12 Hours) Vital Signs Temp Pulse Pulse Resp BP Pulse Ox O2 Del Method 11/22/24 07:36 36.5 C 95 H 16 147/81 H 93 Room Air 11/22/24 07:20 67 11/22/24 07:10 96 H 18 94 Room Air 11/22/24 02:08 72 18 94 Room Air 11/21/24 23:11 Room Air 11/21/24 22:10 97 H 18 91 Room Air 11/21/24 21:46 96 H Laboratory Results 11/22/24 05:31 11/22/24 05:31 Laboratory Tests 05/18/19 11:15 A.fumigatus Allerg IgE <0.10 A.fumigatus Allerg IgG 10.2 H IgE 38 Coccidioides Ab (ID) Negative Aspergillus flavus Ab Negative Aspergill fumigatus Ab Negative Aspergillus niger Ab Negative Strongyloides IgG Ab NEGATIVE Laboratory Tests 11/18/24 12:58 Tryptase 4.2 PG Care Time/CCT Total # of Minutes Spent Total Time Spent with Patient: Total time spent is greater than 50% in coordination of care (as documented) at patient's floor/unit and/or counseling patient: Coding Level of Care Code 46685 SUB INP/OBS CARE 2/35MIN Diagnoses Acute hypoxic respiratory failure J96.01 Cough R05.9 Pneumonia J18.9 Laterality: left Lung location: lower lobe of lung Pneumonia type: due to unspecified organism Reactive airway disease J45.901 Asthma complication type: with acute exacerbation Asthma persistence: unspecified Asthma severity: unspecified severity Asthma with exacerbation J45.901 Upper airway cough syndrome R05.8 Chronic cough R05 Peripheral eosinophilia D72.19
--- NOTE | 2024-11-22 13:19 | Hospitalist Progress Note ---
Date of Service November 22, 2024 Assessment & Plan (1) Acute hypoxic respiratory failure: Plan: Assessment and plan Acute hypoxemic, hypercapnic respiratory failure Secondary to asthma exacerbation Supplemental O2 Solu-Medrol, nebs RTC Pt follows w/ [facility] pulm. Dr. Jameson , previously followed w/ [facility] pulm. 11/18 Today w/ worsening hypoxia, and resp. distress, on phys. exam significant wheezing [facility] medicine consulted while inpt Records from [facility] reviewed - note from pulm. (Dr. Jameson) dated February 2024 Per pulm. pt w/ cough, poss. pna, asthma exacerb., peripheral eosinophilia (i ch pt has hx of and was previously on biologics) - Solu-Medrol to 40 mg 3 times daily -> twice a day budesonide and formoterol nebulized along with hypertonic saline Continue with montelukast as well as Claritin Azithromycin for 5 days, QTc 438 Tryptase level ordered for the patient to make sure patient does not have underlying mast cell disorder given the significant elevation of eosinophils. Tryptase 4.2 (normal) He did stop taking mepolizumab because of issues with cost, this could be rebound eosinophilia after stopping it. Although it is rare but it has been noted. Added brenda wiley to help w/ cough (11/19) 11/19 Pt reports contacted the [employer] for biologics - as it is quite costly at this time and pt not able to take 11/20 CM also involved to help navigate insurance/ coverage for biologics 11/21 - Pt now on RA, but still with coughing spells, and now coughing up some phlegm Chronic conditions: hyperlipidemia, on statin Rx bicuspid aortic valve PVD (hx TAA as per records, patient follows with [facility] vascular surgery) prediabetes, hemoglobin A1c of 5.6 last year hypothyroidism, euthyroid as of current TSH MASLD/hemochromatosis past tobacco abuse DVT prophylaxis. Lovenox subcu Full code Admission and Anticipated Discharge Date Admission Date: November 17, 2024 Subjective Pt seen in follow up of acute hypoxic resp. failure, hx of asthma Pt follows w/ pulmonary med. (currently w/ C Dr. Jameson, previously w/ [facility]). [facility] pulm. consulted and following closely Pt reports biologics ended up being very costly, now contacted the company to see if can get assistance, CM involved. No fever, chills, chest pain, abd. pain, n/v, SOSA, diarrhea, or urinary symptoms Currently pt sitting up in bed in NAD, on RA , still with coughing episodes. Coughing up phlegm Review of Systems Review of Systems: All systems reviewed & are unremarkable except as noted in Subjective Physical Exam Physical Exam: GENERAL: WD/WN M , Slightly anxious, on RA SKIN: Normal color, warm HEENT: [place] palpebral conjunctivae, no ptosis, nasal cannula in place NECK : Supple CHEST : expiratory wheezes, + rhonchi, + cough HEART : RRR, no obvious murmurs ABDOMEN: no distention, nontender EXTREMITIES : No LE swelling/tenderness, moves extremities NEUROLOGIC : Coherent, no facial asymmetry, answers appropriately, moves extremities Results & Data Results & Data Vital Signs (Past 12 Hours) Vital Signs Temp Pulse Pulse Resp BP Pulse Ox O2 Del Method 11/22/24 11:13 37.2 C 80 18 137/85 93 Room Air 11/22/24 11:13 103 H 22 92 Room Air 11/22/24 08:00 Room Air 11/22/24 07:36 36.5 C 95 H 16 147/81 H 93 Room Air 11/22/24 07:20 67 11/22/24 07:10 96 H 18 94 Room Air 11/22/24 02:08 72 18 94 Room Air Laboratory Results 11/22/24 Range/Units 05:31 WBC 8.87 (4.8-10.8) K/ul RBC 4.62 L (4.70-6.10) M/uL Hgb 14.6 (14.0-18.0) g/dl Hct 43.0 (42.0-52.0) % MCV 93.1 (80.0-100.0) fL MCH 31.6 (25.0-34.0) pg MCHC 34.0 (32.0-36.0) g/dL RDW Std Deviation 47.3 H (36.4-46.3) fL RDW Coeff of Femi 13.8 (11.5-14.5) % Plt Count 308 (130-400) K/uL MPV 10.0 (9.4-12.4) fL Sodium 139 (136-145) mmol/L Potassium 4.6 (3.5-5.1) mmol/L Chloride 104 (98-107) mmol/L Carbon Dioxide 28 (21-32) mmol/L Anion Gap 7 (3-11) BUN 19 (6-23) mg/dl Creatinine 0.91 (0.6-1.4) mg/dl Est Cr Clr Drug Dosing 96.6 ml/min eGFR 94.70 BUN/Creatinine Ratio 20.9 H (10-20) Glucose 145 H (70-99(Fasting)) mg/dl Calcium 8.9 (8.6-10.3) mg/dl Phosphorus 4.1 (2.5-4.9) mg/dl Magnesium 2.2 (1.7-2.4) mg/dl Medications Administered Current Inpatient Medications Acetaminophen (Acetaminophen 500 Mg Tab) 500 mg PO Q6H PRN PRN Reason: fever/pain Stop: 12/17/24 23:10 Last Admin: 11/21/24 20:13 Dose: 500 mg Atorvastatin Calcium (Atorvastatin 20 Mg Tab) 20 mg PO DAILY EDSON Stop: 12/18/24 08:59 Last Admin: 11/22/24 09:00 Dose: 20 mg Benzonatate (Benzonatate 100 Mg Capsule) 100 mg PO TID EDSON Stop: 12/19/24 10:49 Last Admin: 11/22/24 09:00 Dose: 100 mg Budesonide (Budesonide 0.5 Mg/2 Ml Vial (Pulmicort)) 0.5 mg NEB BIDR EDSON Stop: 12/18/24 18:59 Last Admin: 11/22/24 07:07 Dose: 0.5 mg Cetirizine HCl (Cetirizine Hcl 10 Mg Tablet) 10 mg PO PM EDSON Stop: 12/18/24 20:59 Last Admin: 11/21/24 20:04 Dose: 10 mg Enoxaparin Sodium (Enoxaparin Inj 40 Mg/0.4 Ml Syr) 40 mg SQ QAM EDSON Stop: 12/18/24 08:59 Last Admin: 11/22/24 09:00 Dose: 40 mg Fluticasone Propionate (Fluticasone Propionate Na Spr 16 Gm Btl) 1 sprays NA DAILY EDSON Stop: 12/18/24 08:59 Last Admin: 11/22/24 09:00 Dose: 1 sprays Formoterol Fumarate (Formoterol 20 Mcg/2 Ml Vial) 20 mcg NEB BIDR EDSON Stop: 12/18/24 18:59 Last Admin: 11/22/24 07:07 Dose: 20 mcg Hydrocodone Bit/Homatropine Methylb (Hydrocodone/Homatropine Syrup 5mg/1.5mg 5ml Udp) 5 ml PO Q8 EDSON Stop: 12/03/24 13:59 Last Admin: 11/22/24 05:57 Dose: 5 ml Hydroxyzine HCl (Hydroxyzine Hcl 10 Mg Tab) 10 mg PO QID PRN PRN Reason: Anxiety Stop: 12/17/24 23:09 Last Admin: 11/21/24 20:04 Dose: 10 mg Azithromycin (Zithromax) 500 mg in 255 mls @ 127.5 mls/hr IV Q24H EDSON Stop: 11/23/24 13:14 Last Infusion: 11/21/24 16:46 Dose: Infused Methylprednisolone 40 mg/ (Syringe) 0.64 mls @ 1.5 mls/min IV Q12 EDSON Stop: 12/21/24 20:59 Last Admin: 11/22/24 09:00 Dose: 1.5 mls/min Ipratropium [place] (Ipratropium [place] Neb Soln 0.02% 0.5mg/2.5ml Vial) 0.5 mg INH Q4R EDSON Stop: 12/18/24 14:59 Last Admin: 11/22/24 11:12 Dose: 0.5 mg Levalbuterol HCl (Levalbuterol 1.25 Mg/3 Ml Neb) 1.25 mg NEB Q4R EDSON Stop: 12/18/24 14:59 Last Admin: 11/22/24 11:13 Dose: 1.25 mg Levothyroxine Sodium (Levothyroxine Sodium 112 Mcg Tablet) 112 mcg PO DAILYBB EDSON Stop: 12/18/24 06:29 Last Admin: 11/22/24 05:57 Dose: 112 mcg Menthol (Cough Drop (Sugar Free) Kaye 24 Kaye/1 Box) 1 kaye BUCCAL Q2H PRN PRN Reason: Sore Throat Stop: 12/18/24 05:47 Last Admin: 11/18/24 06:09 Dose: 1 kaye Montelukast Sodium (Montelukast Sodium 10 Mg Tablet) 10 mg PO HS EDSON Stop: 12/18/24 20:59 Last Admin: 11/21/24 20:04 Dose: 10 mg Oxycodone HCl (Oxycodone Hcl Ir 5 Mg Tab (Immediate Release)) 5 mg PO Q4H PRN PRN Reason: Pain Stop: 12/01/24 23:10 Last Admin: 11/18/24 15:43 Dose: 5 mg Sodium Chloride (Sodium Chlor 7% 4 Ml Neb) 4 ml NEB BIDR EDSON Stop: 12/18/24 18:59 Last Admin: 11/22/24 07:07 Dose: 4 ml Tamsulosin HCl (Tamsulosin Hcl 0.4 Mg Cap) 0.4 mg PO DAILY EDSON Stop: 12/18/24 08:59 Last Admin: 11/22/24 09:00 Dose: 0.4 mg
[2024-11-23 06:27] LABS: Hematocrit (blood only) 41.7 % (42.0-52.0); Hemoglobin 14.7 g/dl (14.0-18.0); Mean Corpuscular Hemoglobin 32.3 pg (25.0-34.0); Mean Corpuscular Hgb Conc 35.3 g/dL (32.0-36.0); Mean Corpuscular Volume 91.6 fL (80.0-100.0); Mean Platelet Volume 9.9 fL (9.4-12.4); Platelet Count 343 K/uL (130-400); RDW Coefficient of Variation 13.8 % (11.5-14.5); RDW Standard Deviation 46.9 fL (36.4-46.3); Red Blood Count 4.55 M/uL (4.70-6.10); White Blood Count 9.55 K/ul (4.8-10.8)
[2024-11-23 06:48] LABS: BUN Creatinine Ratio 20.2 (10-20); Creatinine Clr Calc Pharmacy 93.5 ml/min; Magnesium 2.2 mg/dl (1.7-2.4); Phosphorus 4.2 mg/dl (2.5-4.9); Potassium 4.6 mmol/L (3.5-5.1)
[2024-11-23 08:30] LABS: A calco-baum cmplx NotReported Not Detected (NotDetected); Bact fragilis Not Reported Not Detected (NotDetected); Blood Culture Id Panel PCR Panel Negative (NotDetected); C auris Not Reported Not Detected (NotDetected); Calbicans Not Reported Not Detected (NotDetected); Candida glabrata Not Reported Not Detected (NotDetected); Candida krusei Not Reported Not Detected (NotDetected); Cneoformans/gatti Not Reported Not Detected (NotDetected); Cparapsilosis Not Reported Not Detected (NotDetected); Ctropicalis Not Reported Not Detected (NotDetected); E cloacae compx Not Reported Not Detected (NotDetected); Efaecalis Not Reported Not Detected (NotDetected); Efaecium Not Reported Not Detected (NotDetected); Enterobacterales Not Reported Not Detected (NotDetected); Escherichia coli Not Reported Not Detected (NotDetected); H influenzae Not Reported Not Detected (NotDetected); K aerogenes Not Reported Not Detected (NotDetected); Koxytoca Not Reported Not Detected (NotDetected); Kpneumoniae grp Not Reported Not Detected (NotDetected); Lmonocyt Not Reported Not Detected (NotDetected); N meningitidis Not Reported Not Detected (NotDetected); P aeruginosa Not Reported Not Detected (NotDetected); Proteus spp Not Reported Not Detected (NotDetected); Salmonella spp Not Reported Not Detected (NotDetected); Staph lugdunensis Not Reported Not Detected (NotDetected); Staph spp. Not Reported Not Detected (NotDetected); Staphaureus Not Reported Not Detected (NotDetected); Staphepi Not Reported Not Detected (NotDetected); Stenmaltophilia Not Reported Not Detected (NotDetected); Strep agal(GrpB) Not Reported Not Detected (NotDetected); Strep pneum Not Reported Not Detected (NotDetected); Strep pyog (GrpA) Not Reported Not Detected (NotDetected); Strep spp Not Reported Not Detected (NotDetected)
--- NOTE | 2024-11-23 11:59 | Pulmonology Progress Note ---
Date of Service November 23, 2024 Assessment & Plan (1) Acute hypoxic respiratory failure: (2) Cough: (3) Pneumonia: Laterality: left Lung location: lower lobe of lung Pneumonia type: due to unspecified organism Qualified Code(s): J18.9 - Pneumonia, unspecified organism (4) Reactive airway disease: Asthma complication type: with acute exacerbation Asthma persistence: unspecified Asthma severity: unspecified severity Qualified Code(s): J45.901 - Unspecified asthma with (acute) exacerbation (5) Asthma with exacerbation: (6) Upper airway cough syndrome: (7) Chronic cough: (8) Peripheral eosinophilia: Plan CTA chest 11/17/2024 personally reviewed: Small left upper lobe peripheral cavitary lesion Patchy groundglass opacity in the right middle lobe anteriorly Motion degraded study No significant mediastinal lymphadenopathy PFTs 03/01/2020: No obstructive lung dysfunction, insignificant bronchodilator response, normal lung volumes, normal flow volume loops, normal DLCO FVC 5.34 L, 98%, FEV1 4.15 L, 100%, FEV1/FVC 78%, RV 97%, TLC 99%, RV/TLC 95%, DLCO 109% -- Acute exacerbation of underlying hyperreactive airway disease from underlying asthma With possible right upper right middle lobe pneumonia Finishing 5 day azithromycin course today. On Breo 200 at home. On formoterol and budesonide nebs bid inpatient. Cont scheduled duonebs while inpatient. Supposed to be on 10 mg montelukast nightly but uses it as needed. Was started on mepolizumab November 2023 but because of cost she stopped taking in August 2024. Other Biologics could be thought of in patient's case after finding out what is covered by the insurance. Patient working with care management for alteratives and cost reduction. Respiratory BioFire negative for everything on 11/17/2024 Absolute eosinophil count 1660 on 11/17/2024, it has been as high as 4020 on 08/19/2023 Tryptase level within normal limit Decrease methylprednisolone to prednisone 40mg daily with plan to stop on --Peripheral eosinophilia it has been as high as 4020 on 08/19/2023 -- Chronic cough Component of upper airway cough syndrome secondary allergic rhinitis and postnasal drip Continue with antihistamine Continue using fluticasone nasal spray on an as-needed basis Continue with hydrocodone homatroprine 5 mL every 8 hours [id number] while inpatient. Continue Tessalon Perle Luke warm salt water gargles with OTC lozenges for sore throat. Discharge Plan: Continue home breo high dose + albuterol rescue inhaler PRN. Continue with benzonatate Perles Continue montelukast and Claritin Continue prednisone 40mg daily with plan to end course on 11/27/2024. If able to find biologic therapy that is affordable the patient would greatly benefit given severe persistent asthma with eosinophilia. Follow up with primary juice packaging machines setter within 1-2 weeks post discharge. Discussed trigger avoidance and need for medication/inhaler compliance. Admission and Anticipated Discharge Date Admission Date: November 17, 2024 Supervising Physician Co-Signing Physician Notes Patient seen and examined. EMR reviewed. Discussed with off going juice packaging machines setter as well as with [facility]. Agree with assessment plan as noted. Patient had been responding favorably to therapy however with ambulation the patient became significantly dyspneic with paroxysms of cough requiring rescue nebulizers. Recommend observation in the hospital an additional 24 hours to ensure he is responding favorably at which point in time he can likely be dismissed from the hospital and follow-up with his outpatient pulmonary team through [facility]. Discussed with patient at bedside Subjective "I am doing better and hoping to go home today." Patient stated that he his breathing subjectively feels better. Patient 97% on room air. Wheezing present with some rhonchi which has improved since admission. Patient coughing episodes have lessened and bringing up thin clear to yellow secretions which has increased since initiation of Theravest. Patient assessed with Dr. Saleem later in the am and found to be ambulating with coughing episode, dyspnea, and increased wheezing. PRN neb given. Will reevaluate this afternoon. Review of Systems 2 Review of Systems: All systems reviewed & are unremarkable except as noted in HPI & below Physical Exam 2 Physical Exam: Constitutional: No acute distress HEENT: EOMI, PERRLA Respiratory system: Decreased air entry bilaterally, no crackles, positive expiratory wheeze, positive rhonchi, improved. CVS: S1-S2 positive, no murmurs or gallops Abdomen: Soft, nontender, nondistended, positive bowel sounds x4 Extremities: +2 pulses bilaterally radialis/ dorsalis pedis, no cyanosis, no edema Neuro: Awake alert oriented x3 Psych: Normal mood and affect G/U: No [place] Skin: no rashes, warm and dry Lymphatic: no cervical or axillary lymphadenopathy Results & Data Results & Data Vital Signs (Past 12 Hours) Vital Signs Temp Pulse Pulse Resp BP BP Pulse Ox 11/23/24 11:24 36.3 C L 79 20 130/84 95 11/23/24 09:41 115 H 28 H 92 11/23/24 08:00 11/23/24 07:59 36.5 C 77 18 149/89 H 96 11/23/24 07:24 66 11/23/24 07:18 89 20 95 11/23/24 03:00 36.5 C 75 18 145/76 H 93 11/23/24 02:35 70 18 91 11/22/24 23:54 36.6 C 88 20 156/78 H 95 O2 Del Method 11/23/24 11:24 Room Air 11/23/24 09:41 Room Air 11/23/24 08:00 Room Air 11/23/24 07:59 Room Air 11/23/24 07:24 11/23/24 07:18 Room Air 11/23/24 03:00 Room Air 11/23/24 02:35 Room Air 11/22/24 23:54 Room Air Laboratory Results 11/23/24 05:32 11/23/24 05:32 Abnormal Lab Results 11/17/24 11/23/24 20:08 05:32 WBC 9.55 RBC 4.55 L Hgb 14.7 Hct 41.7 L MCV 91.6 MCH 32.3 MCHC 35.3 RDW Std Deviation 46.9 H RDW Coeff of Femi 13.8 Plt Count 343 MPV 9.9 Sodium 138 Potassium 4.6 Chloride 104 Carbon Dioxide 28 Anion Gap 6 BUN 19 Creatinine 0.94 Est Cr Clr Drug Dosing 93.5 eGFR 91.09 BUN/Creatinine Ratio 20.2 H Glucose 139 H Calcium 9.0 Phosphorus 4.2 Magnesium 2.2 Bld Cult ID Panel PCR PCR Panel Negative Diagnostic Findings No recent imaging. PG Care Time/CCT Total # of Minutes Spent Total Time Spent with Patient: Total time spent is greater than 50% in coordination of care (as documented) at patient's floor/unit and/or counseling patient: Coding Level of Care Code 20980 SUB INP/OBS CARE 2/35MIN Diagnoses Acute hypoxic respiratory failure J96.01 Cough R05.9 Pneumonia J18.9 Laterality: left Lung location: lower lobe of lung Pneumonia type: due to unspecified organism Reactive airway disease J45.901 Asthma complication type: with acute exacerbation Asthma persistence: unspecified Asthma severity: unspecified severity Asthma with exacerbation J45.901 Upper airway cough syndrome R05.8 Chronic cough R05 Peripheral eosinophilia D72.19
--- NOTE | 2024-11-23 14:43 | Hospitalist Progress Note ---
Date of Service November 23, 2024 Assessment & Plan (1) Acute hypoxic respiratory failure: Plan: Assessment and plan Acute hypoxemic, hypercapnic respiratory failure Secondary to asthma exacerbation Supplemental O2 Solu-Medrol, nebs RTC Pt follows w/ [facility] Dr. Jameson , previously followed w/ [facility] pulm. 11/18 Today w/ worsening hypoxia, and resp. distress, on phys. exam significant wheezing [facility] Pulmonary medicine consulted while inpt Records from [facility] reviewed - note from pulm. (Dr. Jameson) dated February 2024 Per pulm. pt w/ cough, poss. pna, asthma exacerb., peripheral eosinophilia (i pt has hx of and was previously on biologics) - Solu-Medrol to 40 mg 3 times daily -> twice a day budesonide and formoterol nebulized along with hypertonic saline Continue with montelukast as well as Claritin Azithromycin for 5 days, QTc 438 Tryptase level ordered for the patient to make sure patient does not have underlying mast cell disorder given the significant elevation of eosinophils. Tryptase 4.2 (normal) He did stop taking mepolizumab because of issues with cost, this could be rebound eosinophilia after stopping it. Although it is rare but it has been noted. Added brenda wiley to help w/ cough (11/19) 11/19 Pt reports contacted the company for biologics - as it is quite costly at this time and pt not able to take 6/20 CM also involved to help navigate insurance/ coverage for biologics 11/21 - Pt now on RA, but still with coughing spells, and now coughing up phlegm - increased amount Chronic conditions: hyperlipidemia, on statin Rx bicuspid aortic valve PVD (hx TAA as per records, patient follows with [facility] [place]) prediabetes, hemoglobin A1c of 5.6 last year hypothyroidism, euthyroid as of current TSH MASLD/hemochromatosis past tobacco abuse DVT prophylaxis. Lovenox subcu Full code Admission and Anticipated Discharge Date Admission Date: November 17, 2024 Subjective Pt seen in follow up of acute hypoxic resp. failure, hx of asthma Pt follows w/ pulmonary med. (currently w/ [facility] [place]. Jameson, previously w/ [facility] pulm. consulted while inpt and following closely Pt reports biologics ended up being very costly, now contacted the company to see if can get assistance, CM involved. No fever, chills, chest pain, abd. pain, n/v, SOSA, diarrhea, or urinary symptoms Pt felt he could be discharged, as soon as started to walk in his room had a long coughing spell and was coughing up significant amount of mucus. Initial sputum cultx was negative. Currently pt sitting up in bed in NAD, on RA , still with coughing episodes. Review of Systems Review of Systems: All systems reviewed & are unremarkable except as noted in Subjective Physical Exam Physical Exam: GENERAL: WD/WN M , Slightly anxious, on RA SKIN: Normal color, warm HEENT: [place] palpebral conjunctivae, no ptosis, nasal cannula in place NECK : Supple CHEST : expiratory wheezes, + rhonchi, + cough HEART : RRR, no obvious murmurs ABDOMEN: no distention, nontender EXTREMITIES : No LE swelling/tenderness, moves extremities NEUROLOGIC : Coherent, no facial asymmetry, answers appropriately, moves extremities Results & Data Results & Data Vital Signs (Past 12 Hours) Vital Signs Temp Pulse Pulse Resp BP Pulse Ox O2 Del Method 11/23/24 14:21 98 H 11/23/24 11:33 22 95 Room Air 11/23/24 11:24 36.3 C L 79 20 130/84 95 Room Air 11/23/24 09:41 115 H 28 H 92 Room Air 11/23/24 08:00 Room Air 11/23/24 07:59 36.5 C 77 18 149/89 H 96 Room Air 11/23/24 07:24 66 11/23/24 07:18 89 20 95 Room Air 11/23/24 03:00 36.5 C 75 18 145/76 H 93 Room Air Laboratory Results 11/23/24 11/17/24 Range/Units 05:32 20:08 WBC 9.55 (4.8-10.8) K/ul RBC 4.55 L (4.70-6.10) M/uL Hgb 14.7 (14.0-18.0) g/dl Hct 41.7 L (42.0-52.0) % MCV 91.6 (80.0-100.0) fL MCH 32.3 (25.0-34.0) pg MCHC 35.3 (32.0-36.0) g/dL RDW Std Deviation 46.9 H (36.4-46.3) fL RDW Coeff of Femi 13.8 (11.5-14.5) % Plt Count 343 (130-400) K/uL MPV 9.9 (9.4-12.4) fL Sodium 138 (136-145) mmol/L Potassium 4.6 (3.5-5.1) mmol/L Chloride 104 (98-107) mmol/L Carbon Dioxide 28 (21-32) mmol/L Anion Gap 6 (3-11) BUN 19 (6-23) mg/dl Creatinine 0.94 (0.6-1.4) mg/dl Est Cr Clr Drug Dosing 93.5 ml/min eGFR 91.09 BUN/Creatinine Ratio 20.2 H (10-20) Glucose 139 H (70-99(Fasting)) mg/dl Calcium 9.0 (8.6-10.3) mg/dl Phosphorus 4.2 (2.5-4.9) mg/dl Magnesium 2.2 (1.7-2.4) mg/dl Bld Cult ID Panel PCR PCR Panel Negative (NotDetected) Medications Administered Current Inpatient Medications Acetaminophen (Acetaminophen 500 Mg Tab) 500 mg PO Q6H PRN PRN Reason: fever/pain Stop: 12/17/24 23:10 Last Admin: 11/23/24 10:12 Dose: 500 mg Atorvastatin Calcium (Atorvastatin 20 Mg Tab) 20 mg PO DAILY EDSON Stop: 12/18/24 08:59 Last Admin: 11/23/24 08:47 Dose: 20 mg Benzonatate (Benzonatate 100 Mg Capsule) 100 mg PO TID EDSON Stop: 12/19/24 10:49 Last Admin: 11/23/24 14:33 Dose: 100 mg Budesonide (Budesonide 0.5 Mg/2 Ml Vial (Pulmicort)) 0.5 mg NEB BIDR E[facility]ON Stop: 12/18/24 18:59 Last Admin: 11/23/24 07:15 Dose: 0.5 mg Cetirizine HCl (Cetirizine Hcl 10 Mg Tablet) 10 mg PO PM EDSON Stop: 12/18/24 20:59 Last Admin: 11/22/24 21:38 Dose: 10 mg Enoxaparin Sodium (Enoxaparin Inj 40 Mg/0.4 Ml Syr) 40 mg SQ QAM EDSON Stop: 12/18/24 08:59 Last Admin: 11/23/24 08:46 Dose: 40 mg Fluticasone Propionate (Fluticasone Propionate Na Spr 16 Gm Btl) 1 sprays NA DAILY EDSON Stop: 12/18/24 08:59 Last Admin: 11/23/24 08:46 Dose: 1 sprays Formoterol Fumarate (Formoterol 20 Mcg/2 Ml Vial) 20 mcg NEB BIDR E[facility]ON Stop: 12/18/24 18:59 Last Admin: 11/23/24 07:15 Dose: 20 mcg Hydrocodone Bit/Homatropine Methylb (Hydrocodone/Homatropine Syrup 5mg/1.5mg 5ml Udp) 5 ml PO Q8 [facility] Stop: 12/03/24 13:59 Last Admin: 11/23/24 14:34 Dose: Not Given Hydroxyzine HCl (Hydroxyzine Hcl 10 Mg Tab) 10 mg PO QID PRN PRN Reason: Anxiety Stop: 12/17/24 23:09 Last Admin: 11/22/24 21:51 Dose: 10 mg Ipratropium [place] (Ipratropium [place] Neb Soln 0.02% 0.5mg/2.5ml Vial) 0.5 mg INH Q4R [facility] Stop: 12/18/24 14:59 Last Admin: 11/23/24 14:42 Dose: 0.5 mg Levalbuterol HCl (Levalbuterol 1.25 Mg/3 Ml Neb) 1.25 mg NEB Q4R [facility] Stop: 12/18/24 14:59 Last Admin: 11/23/24 14:42 Dose: 1.25 mg Levothyroxine Sodium (Levothyroxine Sodium 112 Mcg Tablet) 112 mcg PO DAILYBB [facility] Stop: 12/18/24 06:29 Last Admin: 11/23/24 05:59 Dose: 112 mcg Menthol (Cough Drop (Sugar Free) Kaye 24 Kaye/1 Box) 1 kaye BUCCAL Q2H PRN PRN Reason: Sore Throat Stop: 12/18/24 05:47 Last Admin: 11/18/24 06:09 Dose: 1 kaye Montelukast Sodium (Montelukast Sodium 10 Mg Tablet) 10 mg PO HS [facility] Stop: 12/18/24 20:59 Last Admin: 11/22/24 21:38 Dose: 10 mg Oxycodone HCl (Oxycodone Hcl Ir 5 Mg Tab (Immediate Release)) 5 mg PO Q4H PRN PRN Reason: Pain Stop: 12/01/24 23:10 Last Admin: 11/18/24 15:43 Dose: 5 mg Prednisone (Prednisone 20 Mg Tab) 40 mg PO DAILY EDSON Stop: 11/27/24 10:00 Sodium Chloride (Sodium Chlor 7% 4 Ml Neb) 4 ml NEB BIDR E[facility] Stop: 12/18/24 18:59 Last Admin: 11/23/24 07:15 Dose: 4 ml Tamsulosin HCl (Tamsulosin Hcl 0.4 Mg Cap) 0.4 mg PO DAILY EDSON Stop: 12/18/24 08:59 Last Admin: 11/23/24 08:47 Dose: 0.4 mg
[2024-11-24 06:24] LABS: Hemoglobin 14.2 g/dl (14.0-18.0); Mean Corpuscular Hemoglobin 31.8 pg (25.0-34.0); Mean Corpuscular Hgb Conc 34.6 g/dL (32.0-36.0); Mean Corpuscular Volume 91.7 fL (80.0-100.0); Mean Platelet Volume 9.9 fL (9.4-12.4); Platelet Count 329 K/uL (130-400); RDW Coefficient of Variation 13.9 % (11.5-14.5); RDW Standard Deviation 46.9 fL (36.4-46.3); Red Blood Count 4.47 M/uL (4.70-6.10); White Blood Count 12.75 K/ul (4.8-10.8)
[2024-11-24 07:02] LABS: Calcium 8.7 mg/dl (8.6-10.3); Magnesium 2.2 mg/dl (1.7-2.4)
[2024-11-24 07:08] LABS: BUN Creatinine Ratio 18.9 (10-20); Creatinine Clr Calc Pharmacy 82.9 ml/min
[2024-11-24] MEDS: predniSONE 20 MG TAB PO SCH (08:19)
[2024-11-24] MEDS ORDERED: ALBUT/IPRATROP 3MG/0.5MG NEB 3 ML VIAL NEB PRN (08:58)
--- NOTE | 2024-11-24 08:59 | Pulmonology Progress Note ---
Date of Service November 24, 2024 Assessment & Plan (1) Acute hypoxic respiratory failure: (2) Asthma with exacerbation: (3) Upper airway cough syndrome: (4) Chronic cough: (5) Peripheral eosinophilia: Plan Impression: 64-year-old male with asthma previously well-controlled on Biologics admitted with exacerbation. He is showing some slow and steady improvement. Recommendations: 1. Asthma: Currently on formoterol and budesonide nebulized as well as as needed DuoNebs. On singular 10 mg daily. Was transition to prednisone at 40 mg a day. He was previously well-controlled on Biologics and should get back on them in the outpatient setting. Given his peripheral eosinophilia, he is a candidate for several potential agents. Will defer to his outpatient pulmonary providers 2. Pulmonary toilet: Currently using vest therapy as well as hypertonic saline. Continue flutter valve and activity as tolerated. 3. Cough: Continue Tessalon and as needed hydrocodone cough syrup. 4. Hypoxemia: Resolved. No additional intervention required If the patient is able to ambulate today and feels well he can likely be dismissed from the hospital. Would complete prednisone 40 mg a day for additional 5 days and have him follow-up with his outpatient pulmonary providers at [facility]. Admission and Anticipated Discharge Date Admission Date: November 17, 2024 Subjective Patient seen and examined. EMR reviewed. The patient reports that he is doing much better this morning. He feels almost back to baseline. States he slept well last night and did not have episodes of waking up coughing. This morning while asking him to take a deep breath did elicit some paroxysms of cough. He is a been able to cough up some small mucous plugs. He overall feels that he is improving Review of Systems 2 Review of Systems: All systems reviewed & are unremarkable except as noted in Subjective Physical Exam 2 Constitutional: WD/WN, vitals as above Neck: trachea midline, no thyromegaly Respiratory: + cough; no respiratory distress, no lab ored breathing and not tachypneic Auscultation: + rhonchi; no wheezes Cardiovascular: RRR, no murmur, no edema Gastrointestinal (Abdomen): normal bowel sounds, soft, nontender, no hepatosplenomegaly Musculoskeletal: Extremities: extremities normal to inspection Skin: no rashes, warm and dry Neurologic: Nonfocal exam Lymphatic: no cervical lymphadenopathy Results & Data Results & Data Vital Signs (Past 12 Hours) Vital Signs Temp Pulse Pulse Resp BP BP Pulse Ox 11/24/24 07:48 36.6 C 81 20 126/79 95 11/24/24 07:27 72 11/24/24 07:00 76 16 98 11/24/24 04:00 36.5 C 72 20 148/88 H 95 11/24/24 02:17 18 96 11/24/24 02:12 11/23/24 23:49 36.6 C 82 20 138/85 95 11/23/24 23:02 89 11/23/24 22:15 94 H 18 95 O2 Del Method 11/24/24 07:48 Room Air 11/24/24 07:27 11/24/24 07:00 Room Air 11/24/24 04:00 Room Air 11/24/24 02:17 Room Air 11/24/24 02:12 Room Air 11/23/24 23:49 Room Air 11/23/24 23:02 11/23/24 22:15 Room Air Laboratory Results 11/24/24 05:36 11/24/24 05:36 Diagnostic Findings No new imaging PG Care Time/CCT Total # of Minutes Spent Total Time Spent with Patient: Total time spent is greater than 50% in coordination of care (as documented) at patient's floor/unit and/or counseling patient: Coding Level of Care Code 43899 SUB INP/OBS CARE 2/35MIN Diagnoses Acute hypoxic respiratory failure J96.01 Asthma with exacerbation J45.901 Upper airway cough syndrome R05.8 Chronic cough R05 Peripheral eosinophilia D72.19
--- NOTE | 2024-11-24 16:47 | Hospitalist Progress Note ---
Date of Service November 24, 2024 Assessment & Plan (1) Acute hypoxic respiratory failure: Plan: Assessment and plan Acute hypoxemic, hypercapnic respiratory failure Secondary to asthma exacerbation Supplemental O2 Solu-Medrol, nebs RTC Pt follows w/ [facility] pulm. Dr. Jameson , previously followed w/ [facility] pulm. 11/18 Today w/ worsening hypoxia, and resp. distress, on phys. exam significant wheezing [facility] Pulmonary medicine consulted while inpt Records from [facility] reviewed - note from pulm. (Dr. Jameson) dated February 2024 Per pulm. pt w/ cough, poss. pna, asthma exacerb., peripheral eosinophilia (i pt has hx of and was previously on biologics) - Solu-Medrol to 40 mg 3 times daily -> twice a day budesonide and formoterol nebulized along with hypertonic saline Continue with montelukast as well as Claritin Azithromycin for 5 days, QTc 438 Tryptase level ordered for the patient to make sure patient does not have underlying mast cell disorder given the significant elevation of eosinophils. Tryptase 4.2 (normal) He did stop taking mepolizumab because of issues with cost, this could be rebound eosinophilia after stopping it. Although it is rare but it has been noted. Added brenda wiley to help w/ cough (11/19) 11/19 Pt reports contacted the company for biologics - as it is quite costly at this time and pt not able to take 6/20 CM also involved to help navigate insurance/ coverage for biologics 11/21 - Pt now on RA, but still with significant coughing spells, and now coughing up phlegm - increased amount Chronic conditions: hyperlipidemia, on statin Rx bicuspid aortic valve PVD (hx TAA as per records, patient follows with [facility] vascular surgery) prediabetes, hemoglobin A1c of 5.6 last year hypothyroidism, euthyroid as of current TSH MASLD/hemochromatosis past tobacco abuse DVT prophylaxis. Lovenox subcu Full code Admission and Anticipated Discharge Date Admission Date: November 17, 2024 Subjective Pt seen in follow up of acute hypoxic resp. failure, hx of asthma Pt follows w/ pulmonary med. (currently w/ [facility] Dr. Jameson, previously w/ [facility]). [facility] pulm. consulted while inpt and following closely Pt reports biologics ended up being very costly, now contacted the company to see if can get assistance, CM involved. 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 I contacted Dr. Jameson for a close outpt follow up. No fever, chills, chest pain, abd. pain, n/v, SOSA, diarrhea, or urinary symptoms Pt felt he could be discharged, as soon as he starts to walk or takes a deep breath he has a long coughing spell and is coughing up a significant amount of mucus. Initial sputum cultx was negative. Will repeat. Currently pt sitting up in bed in NAD, on RA , still with coughing episodes. Review of Systems Review of Systems: All systems reviewed & are unremarkable except as noted in Subjective Physical Exam Physical Exam: GENERAL: WD/WN M , Slightly anxious, on RA SKIN: Normal color, warm HEENT: NC/AT, EOMI NECK : Supple CHEST : + rhonchi, + cough, no wheezing HEART : RRR, no obvious murmurs ABDOMEN: no distention, nontender EXTREMITIES : No LE swelling/tenderness, moves extremities NEUROLOGIC : Coherent, no facial asymmetry, answers appropriately, moves extremities Results & Data Results & Data Vital Signs (Past 12 Hours) Vital Signs Temp Pulse Pulse Resp BP Pulse Ox O2 Del Method 11/24/24 15:58 36.7 C 81 20 128/84 94 Room Air 11/24/24 14:47 87 18 95 Room Air 11/24/24 13:52 93 H 11/24/24 11:31 36.6 C 84 20 142/88 H 96 Room Air 11/24/24 10:00 78 20 96 Room Air 11/24/24 08:15 Room Air 11/24/24 07:48 36.6 C 81 20 126/79 95 Room Air 11/24/24 07:27 72 11/24/24 07:00 76 16 98 Room Air Laboratory Results 11/24/24 Range/Units 05:36 WBC 12.75 H (4.8-10.8) K/ul RBC 4.47 L (4.70-6.10) M/uL Hgb 14.2 (14.0-18.0) g/dl Hct 41.0 L (42.0-52.0) % MCV 91.7 (80.0-100.0) fL MCH 31.8 (25.0-34.0) pg MCHC 34.6 (32.0-36.0) g/dL RDW Std Deviation 46.9 H (36.4-46.3) fL RDW Coeff of Femi 13.9 (11.5-14.5) % Plt Count 329 (130-400) K/uL MPV 9.9 (9.4-12.4) fL Sodium 140 (136-145) mmol/L Potassium 4.0 (3.5-5.1) mmol/L Chloride 103 (98-107) mmol/L Carbon Dioxide 32 (21-32) mmol/L Anion Gap 5 (3-11) BUN 20 (6-23) mg/dl Creatinine 1.06 (0.6-1.4) mg/dl Est Cr Clr Drug Dosing 82.9 ml/min eGFR 78.86 BUN/Creatinine Ratio 18.9 (10-20) Glucose 130 H (70-99(Fasting)) mg/dl Calcium 8.7 (8.6-10.3) mg/dl Magnesium 2.2 (1.7-2.4) mg/dl Medications Administered Current Inpatient Medications Acetaminophen (Acetaminophen 500 Mg Tab) 500 mg PO Q6H PRN PRN Reason: fever/pain Stop: 12/17/24 23:10 Last Admin: 11/24/24 08:20 Dose: 500 mg Albuterol (Albut/Ipratrop 3mg/0.5mg Neb 3 Ml Vial) 3 ml NEB QIDR PRN; Protocol PRN Reason: cough Stop: 12/24/24 08:57 Atorvastatin Calcium (Atorvastatin 20 Mg Tab) 20 mg PO DAILY EDSON Stop: 12/18/24 08:59 Last Admin: 11/24/24 08:20 Dose: 20 mg Benzonatate (Benzonatate 100 Mg Capsule) 100 mg PO TID EDSON Stop: 12/19/24 10:49 Last Admin: 11/24/24 13:30 Dose: 100 mg Budesonide (Budesonide 0.5 Mg/2 Ml Vial (Pulmicort)) 0.5 mg NEB BIDR EDSON Stop: 12/18/24 18:59 Last Admin: 11/24/24 06:59 Dose: 0.5 mg Cetirizine HCl (Cetirizine Hcl 10 Mg Tablet) 10 mg PO PM EDSON Stop: 12/18/24 20:59 Last Admin: 11/23/24 21:54 Dose: 10 mg Enoxaparin Sodium (Enoxaparin Inj 40 Mg/0.4 Ml Syr) 40 mg SQ QAM [facility] Stop: 12/18/24 08:59 Last Admin: 11/24/24 08:21 Dose: 40 mg Fluticasone Propionate (Fluticasone Propionate Na Spr 16 Gm Btl) 1 sprays NA DAILY EDSON Stop: 12/18/24 08:59 Last Admin: 11/24/24 08:21 Dose: 1 sprays Formoterol Fumarate (Formoterol 20 Mcg/2 Ml Vial) 20 mcg NEB BIDR [facility] Stop: 12/18/24 18:59 Last Admin: 11/24/24 06:59 Dose: 20 mcg Hydrocodone Bit/Homatropine Methylb (Hydrocodone/Homatropine Syrup 5mg/1.5mg 5ml Udp) 5 ml PO Q8 [facility] Stop: 12/03/24 13:59 Last Admin: 11/24/24 13:33 Dose: 5 ml Hydroxyzine HCl (Hydroxyzine Hcl 10 Mg Tab) 10 mg PO QID PRN PRN Reason: Anxiety Stop: 12/17/24 23:09 Last Admin: 11/22/24 21:51 Dose: 10 mg Ipratropium [place] (Ipratropium [place] Neb Soln 0.02% 0.5mg/2.5ml Vial) 0.5 mg INH Q4R [facility] Stop: 12/18/24 14:59 Last Admin: 11/24/24 14:46 Dose: 0.5 mg Levalbuterol HCl (Levalbuterol 1.25 Mg/3 Ml Neb) 1.25 mg NEB Q4R [facility] Stop: 12/18/24 14:59 Last Admin: 11/24/24 14:46 Dose: 1.25 mg Levothyroxine Sodium (Levothyroxine Sodium 112 Mcg Tablet) 112 mcg PO DAILYBB [facility] Stop: 12/18/24 06:29 Last Admin: 11/24/24 05:40 Dose: 112 mcg Menthol (Cough Drop (Sugar Free) Kaye 24 Kaye/1 Box) 1 kaye BUCCAL Q2H PRN PRN Reason: Sore Throat Stop: 12/18/24 05:47 Last Admin: 11/18/24 06:09 Dose: 1 kaye Montelukast Sodium (Montelukast Sodium 10 Mg Tablet) 10 mg PO HS EDSON Stop: 12/18/24 20:59 Last Admin: 11/23/24 21:53 Dose: 10 mg Oxycodone HCl (Oxycodone Hcl Ir 5 Mg Tab (Immediate Release)) 5 mg PO Q4H PRN PRN Reason: Pain Stop: 12/01/24 23:10 Last Admin: 11/18/24 15:43 Dose: 5 mg Prednisone (Prednisone 20 Mg Tab) 40 mg PO DAILY EDSON Stop: 11/27/24 10:00 Last Admin: 11/24/24 08:19 Dose: 40 mg Sodium Chloride (Sodium Chlor 7% 4 Ml Neb) 4 ml NEB BIDR EDSON Stop: 12/18/24 18:59 Last Admin: 11/24/24 06:59 Dose: 4 ml Tamsulosin HCl (Tamsulosin Hcl 0.4 Mg Cap) 0.4 mg PO DAILY EDSON Stop: 12/18/24 08:59 Last Admin: 11/24/24 08:20 Dose: 0.4 mg
[2024-11-25 07:19] LABS: Hematocrit (blood only) 43.9 % (42.0-52.0); Hemoglobin 14.9 g/dl (14.0-18.0); Mean Corpuscular Hemoglobin 31.2 pg (25.0-34.0); Mean Corpuscular Hgb Conc 33.9 g/dL (32.0-36.0); Mean Corpuscular Volume 91.8 fL (80.0-100.0); Mean Platelet Volume 9.6 fL (9.4-12.4); Platelet Count 337 K/uL (130-400); RDW Coefficient of Variation 13.9 % (11.5-14.5); RDW Standard Deviation 47.3 fL (36.4-46.3); Red Blood Count 4.78 M/uL (4.70-6.10); White Blood Count 14.29 K/ul (4.8-10.8)
[2024-11-25 07:46] LABS: BUN Creatinine Ratio 20.6 (10-20); Calcium 8.7 mg/dl (8.6-10.3); Creatinine Clr Calc Pharmacy 90.6 ml/min; Magnesium 2.3 mg/dl (1.7-2.4); Phosphorus 4.8 mg/dl (2.5-4.9); Potassium 4.1 mmol/L (3.5-5.1)
--- NOTE | 2024-11-25 08:51 | Pulmonology Progress Note ---
Date of Service November 25, 2024 Assessment & Plan (1) Acute hypoxic respiratory failure: (2) Asthma with exacerbation: (3) Upper airway cough syndrome: (4) Chronic cough: (5) Peripheral eosinophilia: Plan Impression: 64-year-old male with asthma previously well-controlled on Biologics admitted with exacerbation. He is showing some slow and steady improvement. Recommendations: 1. Asthma: Currently on formoterol and budesonide nebulized as well as as needed DuoNebs. On singular 10 mg daily. Was transition to prednisone at 40 mg a day. He was previously well-controlled on Biologics and should get back on them in the outpatient setting. Given his peripheral eosinophilia, he is a candidate for several potential agents. Will defer to his outpatient pulmonary providers 2. Pulmonary toilet: Currently using vest therapy as well as hypertonic saline. Continue flutter valve and activity as tolerated. 3. Cough: Continue Tessalon and as needed hydrocodone cough syrup. 4. Hypoxemia: Resolved. No additional intervention required Plan for discharge today. Would complete prednisone 40 mg a day for additional 4 days and have him follow-up with his outpatient pulmonary providers at [facility]. Admission and Anticipated Discharge Date Admission Date: November 17, 2024 Subjective "I feel good and I am going home today." Patient coughing episodes have lessened in last 24hrs and bringing up less mucous. Wheezing still present but much improved from prior days. Patient SpO2 98% on room air. Review of Systems 2 Review of Systems: All systems reviewed & are unremarkable except as noted in Subjective Physical Exam 2 Constitutional: WD/WN, vitals as above Neck: trachea midline, no thyromegaly Respiratory: + cough; no respiratory distress, no lab ored breathing and not tachypneic Auscultation: + rhonchi; no wheezes Cardiovascular: RRR, no murmur, no edema Gastrointestinal (Abdomen): normal bowel sounds, soft, nontender, no hepatosplenomegaly Musculoskeletal: Extremities: extremities normal to inspection Skin: no rashes, warm and dry Neurologic: Nonfocal exam Lymphatic: no cervical lymphadenopathy Results & Data Results & Data Vital Signs (Past 12 Hours) Vital Signs Temp Pulse Pulse Resp BP Pulse Ox O2 Del Method 11/25/24 08:04 36.4 C L 75 16 138/91 93 Room Air 11/25/24 07:28 Room Air 11/25/24 07:11 76 11/25/24 07:07 74 16 96 Room Air 11/25/24 04:00 36.2 C L 62 20 130/76 93 Room Air 11/25/24 02:21 83 20 94 Room Air 11/25/24 00:11 Room Air 11/24/24 23:58 77 11/24/24 23:24 36.5 C 84 20 138/75 93 Room Air 11/24/24 22:41 86 19 96 Room Air Laboratory Results 11/25/24 06:20 11/25/24 06:20 Abnormal Lab Results 11/25/24 06:20 WBC 14.29 H RBC 4.78 Hgb 14.9 Hct 43.9 MCV 91.8 MCH 31.2 MCHC 33.9 RDW Std Deviation 47.3 H RDW Coeff of Femi 13.9 Plt Count 337 MPV 9.6 Sodium 138 Potassium 4.1 Chloride 102 Carbon Dioxide 32 Anion Gap 4 BUN 20 Creatinine 0.97 Est Cr Clr Drug Dosing 90.6 eGFR 87.72 BUN/Creatinine Ratio 20.6 H Glucose 95 Calcium 8.7 Phosphorus 4.8 Magnesium 2.3 Diagnostic Findings 11/25/24 Range/Units 06:20 WBC 14.29 H (4.8-10.8) K/ul RBC 4.78 (4.70-6.10) M/uL Hgb 14.9 (14.0-18.0) g/dl Hct 43.9 (42.0-52.0) % MCV 91.8 (80.0-100.0) fL MCH 31.2 (25.0-34.0) pg MCHC 33.9 (32.0-36.0) g/dL RDW Std Deviation 47.3 H (36.4-46.3) fL RDW Coeff of Femi 13.9 (11.5-14.5) % Plt Count 337 (130-400) K/uL MPV 9.6 (9.4-12.4) fL Sodium 138 (136-145) mmol/L Potassium 4.1 (3.5-5.1) mmol/L Chloride 102 (98-107) mmol/L Carbon Dioxide 32 (21-32) mmol/L Anion Gap 4 (3-11) BUN 20 (6-23) mg/dl Creatinine 0.97 (0.6-1.4) mg/dl Est Cr Clr Drug Dosing 90.6 ml/min eGFR 87.72 BUN/Creatinine Ratio 20.6 H (10-20) Glucose 95 (70-99(Fasting)) mg/dl Calcium 8.7 (8.6-10.3) mg/dl Phosphorus 4.8 (2.5-4.9) mg/dl Magnesium 2.3 (1.7-2.4) mg/dl PG Care Time/CCT Total # of Minutes Spent Total Time Spent with Patient: Total time spent is greater than 50% in coordination of care (as documented) at patient's floor/unit and/or counseling patient: Coding Level of Care Code 73115 SUB INP/OBS CARE MIN Diagnoses Acute hypoxic respiratory failure J96.01 Asthma with exacerbation J45.901 Upper airway cough syndrome R05.8 Chronic cough R05 Peripheral eosinophilia D72.19
[2024-11-25 10:37] VITALS: TEMP 99.1; O2SAT 95
[2024-11-25 10:40] VITALS: RESP 16
--- NOTE | 2024-11-25 12:08 | Discharge Summary ---
Discharge Summary Date of Service November 25, 2024 Principal Dx & Hospital Course #1 = Principal Diagnosis (1) Chronic cough: (2) Upper airway cough syndrome: (3) Acute hypoxic respiratory failure: Plan Acute hypoxemic, hypercapnic respiratory failure Asthma with exacerbation Upper airway cough syndrome Chronic cough Peripheral eosinophilia Supplemental O2, weaned 3 days before discharge Solu-Medrol, nebs RTC [facility]. Jameson , previously followed w/ [facility] pul[place]. [facility] Pulmonary medicine consulted while inpt Records from [facility] reviewed Per pulmonology, pt w/ cough, poss. pna, asthma exacerb., peripheral eosinophilia (which pt has hx of this and was previously on biologics) - Solu-Medrol weaned down to po prednisone on discharge for an additional 4 more days budesonide and formoterol nebulized along with hypertonic saline Continue with montelukast as well as levocetirizine Completed Azithromycin for 5 days, QTc 438 Tryptase level ordered for the patient to make sure patient does not have underlying mast cell disorder given the significant elevation of eosinophils. Tryptase 4.2 (normal) He did stop taking mepolizumab because of issues with cost, this could be rebound eosinophilia after stopping it. Although it is rare but it has been noted. PRN isabel wiley to help w/ cough, discharged with the same CM also involved to help navigate insurance/ coverage for biologics Pulmonology recommended the following on the day of discharge: "...Impression: 64-year-old male with asthma previously well-controlled on Biologics admitted with exacerbation. He is showing some slow and steady improvement. Recommendations: 1. Asthma: Currently on formoterol and budesonide nebulized as well as as needed DuoNebs. On singular 10 mg daily. Was transition to prednisone at 40 mg a day. He was previously well-controlled on Biologics and should get back on them in the outpatient setting. Given his peripheral eosinophilia, he is a candidate for several potential agents. Will defer to his outpatient pulmonary providers 2. Pulmonary toilet: Currently using vest therapy as well as hypertonic saline. Continue flutter valve and activity as tolerated. 3. Cough: Continue Tessalon and as needed hydrocodone cough syrup. 4. Hypoxemia: Resolved. No additional intervention required Plan for discharge today. Would complete prednisone 40 mg a day for additional 4 days and have him follow-up with his outpatient pulmonary providers at [facility]..." please ensure close followup with pt's Promotions Representative after discharge. Close pcp followup as well. Chronic conditions: hyperlipidemia, on statin Rx bicuspid aortic valve PVD (hx TAA as per records, patient follows with [facility] vascular surgery) prediabetes, hemoglobin A1c of 5.6 last year hypothyroidism, euthyroid as of current TSH MASLD/hemochromatosis past tobacco abuse Notes For Next Care Provider As above Medication Changes From Visit Per pulmonology: PO prednisone 40mg x 4 more days PRN Hycodan and tessalon pearles for cough Admission HPI Per Admitting Provider History obtained from patient, family, and records. Medical history significant for bronchial asthma, hyperlipidemia, coronary artery calcification as per records, bicuspid aortic valve, PVD, prediabetes, hypothyroidism, MASLD, hemochromatosis, BPH, peripheral eosinophilia as per records, past tobacco abuse (only for 2 months as per patient). Last confinement February 2023 for asthma exacerbation. 3 days history of cough symptoms productive of clear sputum with worsening SOB. No chest pain. Not sure about sick contacts. Denies aspiration, fever, chills, some fluid retention. O2 sats on pulse ox 60s as per patient. Outpatient steroid course prescribed by automation and control engineer last month for breathing a ttack (second steroid course this year). Lowest O2 sats of 80s documented at the ER. Solu-Medrol, and neb treatment administered at the ER. Patient currently feeling better. Medical History as above Surgical History : Cataract surgeries, hypospadia surgery Family History : Heart disease, stroke, thyroid disease Personal/Social history : Past tobacco abuse (only 2 months as per patient), no EtOH intake, office work Admission Exam Per Admitting Provider GENERAL: Slightly anxious, tremulous, pleasant, no respiratory distress SKIN: Normal color, warm HEENT: [place] palpebral conjunctivae, no ptosis, dry buccal mucosa, nasal cannula in place NECK : Supple, no tenderness CHEST : Decreased breath sounds, expiratory wheezes, no tenderness HEART : RRR, no obvious murmurs ABDOMEN: no distention, nontender EXTREMITIES : No LE swelling/tenderness, palpable pulses, no other conspicuous deformities noted NEUROLOGIC : Coherent, no facial asymmetry, hand tremors following breathing treatment, no other gross focality Discharge Exam General: Alert, oriented. No acute distress HEENT: NC/AT CV: RRR Resp: Breath sounds coarse bilaterally, no increased effort of breathing Abdomen: Soft, nontender Extremities: No edema in lower extremities bilaterally. Updated Medication List Medication Instructions Recorded Confirmed Type albuterol sulfate 2.5 mg/3 mL mg inhalation TID 11/17/24 History (0.083 %) solution for nebulization albuterol sulfate 90 mcg/actuation 2 puff inhalation QID PRN Wheezing 11/17/24 11/17/24 History aerosol inhaler atorvastatin 20 mg tablet 20 mg PO DAILY 11/17/24 11/17/24 History epinephrine 0.3 mg/0.3 mL 0.3 mg IM Q4H PRN Anaphylaxis 11/17/24 11/17/24 History injection, auto-injector fluticasone furoate 200 1 inh inhalation DAILY 11/17/24 11/17/24 History mcg-vilanterol 25 mcg/dose inhalation powder fluticasone propionate 50 1 spray intranasal DAILY 11/17/24 11/17/24 History mcg/actuation nasal spray,suspension ipratropium 0.5 mg-albuterol 3 mg 3 ml inhalation 6XD 11/17/24 11/17/24 History (2.5 mg base)/3 mL nebulization soln levothyroxine 112 mcg tablet 112 mcg PO DAILY 11/17/24 11/17/24 History mepolizumab 100 mg/mL subcutaneous 3 subcut 11/17/24 History auto-injector mepolizumab 100 mg/mL subcutaneous mg subcut 11/17/24 History auto-injector montelukast 10 mg tablet 10 mg PO HS 11/17/24 11/17/24 History tamsulosin 0.4 mg capsule 0.4 mg PO DAILY 11/17/24 11/17/24 History benzonatate 100 mg capsule 200 mg (2 x 100 mg) PO TID #90 caps 11/25/24 Rx hydrocodone-homatropine 5 mg-1.5 5 ml PO Q8 #473 mL 11/25/24 Rx mg/5 mL oral solution (Hydromet) levocetirizine 5 mg tablet 10 mg (2 x 5 mg) PO PM #0 tabs 11/25/24 11/17/24 Rx prednisone 20 mg tablet 40 mg (2 x 20 mg) PO DAILY #8 tabs 11/25/24 Rx Hospital Stay Data Consultations 11/17/24 22:18 ED Decision to Admit Stat 11/18/24 12:04 Consult Pulmonology Routine Diagnostic Imagining Performed 11/17/24 19:59 CT angio chest PE protocol Stat Chest CTA 11/17/24 19:59 Exam(s): CTA CHEST EXAM: CT Angiography Chest With Intravenous Contrast CLINICAL HISTORY: dyspnea. TECHNIQUE: Axial computed tomographic angiography images of the chest with intravenous contrast. CTDI is 32.38 mGy and DLP is 841.26 mGy-cm. Automated exposure control was utilized for the study. A dose lowering technique was utilized adhering to the principles of ALARA. MIP reconstructed images were created and reviewed. COMPARISON: No relevant prior studies available. FINDINGS: Limitations: There is diffuse respiratory artifact, which degrades image quality throughout the examination. Pulmonary arteries: Accounting for limitations with respiratory artifact, there is no definite evidence for pulmonary embolism. Several distal subsegmental pulmonary artery segments are of limited to nondiagnostic quality. Aorta: No acute findings. No thoracic aortic aneurysm. Lungs: Accounting for respiratory artifact, no definite focal airspace consolidation. There is intermittent opacification of the subsegmental bronchi, primarily involving the inferior aspect of all lung segments bilaterally. Pleural space: Unremarkable. No significant effusion. No pneumothorax. Heart: Unremarkable. No cardiomegaly. No significant pericardial effusion. Bones/joints: No acute fracture. No dislocation. Soft tissues: Unremarkable. Lymph nodes: Unremarkable. No enlarged lymph nodes. IMPRESSION: 1. Accounting for limitations with respiratory artifact, there is no definite evidence for pulmonary embolism. Several distal subsegmental pulmonary artery segments are of limited to nondiagnostic quality. 2. Accounting for respiratory artifact, no definite focal airspace consolidation. There is intermittent opacification of the subsegmental bronchi, primarily involving the inferior aspect of all lung segments bilaterally. This may represent aspiration, inflammatory or infectious bronchitis with endobronchial secretions. No significant postobstructive pneumonitis. Electronically signed by: Zion Camara MD 11/17/24 23:14 PM Chest X-Ray 11/17/24 19:59 Exam(s): XR CXR 1 VIEW EXAM: XR Chest, 1 View CLINICAL HISTORY: dyspnea. TECHNIQUE: Frontal view of the chest. COMPARISON: Portable chest single view 08/19/2023 FINDINGS: Lungs: The lungs are stable in appearance without interval new airspace consolidation. The pulmonary vasculature demonstrates no significant radiographic abnormality. Pleural space: Unremarkable. No pneumothorax. No large pleural effusion. Heart: Unremarkable. No cardiomegaly. Mediastinum: No significant abnormality identified. The trachea is midline. Bones/joints: Unremarkable. No acute fracture. IMPRESSION: No acute cardiopulmonary process or significant alteration from the prior examination. Electronically signed by: Zion Camara MD 11/17/24 22:08 PM Chest X-Ray 11/18/24 20:54 Exam(s): XR CXR 1 VIEW EXAM: XR Chest, 1 View CLINICAL HISTORY: Reason for exam: wheeze. TECHNIQUE: Frontal view of the chest. COMPARISON: 11/17/2024 FINDINGS: Lungs: No consolidation. Pleural space: No significant pleural effusion. No pneumothorax. Heart: No cardiomegaly or pulmonary vascular congestion. Bones/joints: No acute fracture. No dislocation. IMPRESSION: No evidence of acute cardiopulmonary disease. Electronically signed by: Syed Barreto M.D. 11/18/24 23:07 PM Chest X-Ray 11/19/24 22:31 Exam(s): XR CXR 1 VIEW EXAM: XR Chest, 1 View CLINICAL HISTORY: Reason for exam: sob. TECHNIQUE: Frontal view of the chest. COMPARISON: 11/18/2024 FINDINGS: Lungs: No consolidation. Pleural space: No significant pleural effusion. No pneumothorax. Heart: No cardiomegaly or pulmonary vascular congestion. Bones/joints: No acute fracture. No dislocation. IMPRESSION: No evidence of acute cardiopulmonary disease. Electronically signed by: Syed Barreto M.D. 11/20/24 02:06 AM Discharge Instructions Given to Patient (Per Discharging Provider) Mr. Pearl, You would like to be discharged home. You were seen by the automation and control engineer who advised discharge home as well. They recommend that you continue with the prednisone 40mg daily for an additional 4 more days starting tomorrow November 26. Please also continue with the tessalon pearles prescribed and the NEEDED Hycodan cough syrup to help with your cough. You have not needed oxygen for the last 3 days. Please also keep very close followup with your automation and control engineer (as soon as possible) after discharge. Please also keep close follow up with your primary care provider after discharge. Please do not hesitate to come back to the emergency room if your symptoms wors en or return. It was a pleasure taking care of you while you were here. Total Time Total Time Spent Total Time Spent (In Minutes): 60
[2024-11-25 14:08] VITALS: BP 148/88
[2024-11-25 15:47] VITALS: PULSE 98
== END 2024-11-25 16:54 | disposition home or self-care (01) | DRG 189 ==
LOC: ED 19:51 → SUATTDRO 22:38 → 2N 22:38